=== PATIENT | female | born 1965 | race Two or more races ===

== ENCOUNTER 2022-01-02 12:28 | Outpatient (REF) | payer OTHER, SELFPAY ==
[2022-01-02 13:38] LABS: MANUAL DIFF FLAG NO
[2022-01-02 13:50] LABS: Basophils Percent Auto 0.7 % (0-2); Eosinophils Absolute Auto 0.2 X10*3/uL (0.0-0.4); Eosinophils Percent Auto 3.9 % (0-4); Hematocrit 42.1 % (37.0-47.0); Hemoglobin 13.3 g/dl (12.0-16.0); Imm Gran Abs Auto 0.01 X10*3/uL (0.00-0.03); Imm Gran Pct Auto 0.2 % (0.0-0.4); Lymphocytes Absolute Auto 1.7 X10*3/uL (1.2-4.9); Lymphocytes Percent Auto 29.6 % (20-40); Mean Corpuscular HGB Conc 31.6 g/dl (31.0-35.0); Mean Corpuscular Hemoglobin 26.7 pg (27.0-33.0); Mean Corpuscular Volume 84.4 fL (80.0-98.0); Mean Platelet Volume 10.7 fL (9.4-12.3); Monocytes Absolute Auto 0.4 X10*3/uL (0.1-1.2); Monocytes Percent Auto 7.6 % (2-11); Neutrophils Absolute Auto 3.3 x10*3/uL (2.0-8.3); Platelet Count 253 X10*3/uL (160-400); Red Blood Count 4.99 X10*6/uL (4.20-5.50); White Blood Count 5.7 X10*3/uL (4.8-10.8)
[2022-01-02 13:59] LABS: C Reactive Protein 0.36 mg/dL (< or = 0.50); Estimated Glomerular Filt Rate > 60
[2022-01-02 14:16] LABS: Creatinine Urine 76.12 mg/dL; Total Protein Urine Random < 7 mg/dL (<12)
[2022-01-02 14:57] LABS: Erythrocyte Sedimentation Rate 7 MM/HR (0-20)
[2022-01-03 13:51] LABS: Complement C3 87 mg/dL (83-193)
== END 2022-01-02 12:29 | disposition home or self-care (01) ==
LOC: HO.10HDL 12:28
PROVIDERS: Visit Provider Internal Medicine Rheumatology
DX: M79.7 Fibromyalgia (principal); M17.0 Bilateral primary osteoarthritis of knee; M32.9 Systemic lupus erythematosus, unspecified; Z79.899 Other long term (current) drug therapy
CPT/HCPCS: 36415; 82565; 84156; 85025; 85652; 86140; 86160; 99212

== ENCOUNTER → 2022-06-12 09:36 | Outpatient (BNVA) | payer OTHER, SELFPAY | PROVIDERS: PCP Internal Medicine; Visit Provider Internal Medicine Rheumatology | DX: M17.0 Bilateral primary osteoarthritis of knee (principal); M79.7 Fibromyalgia; M32.9 Systemic lupus erythematosus, unspecified; Z79.899 Other long term (current) drug therapy | CPT/HCPCS: 99212 ==

== ENCOUNTER 2023-01-31 07:56 | Outpatient (AMB) | payer OTHER, SELFPAY ==
[2023-01-31 08:02] VITALS: BP 120/70; PULSE 64; TEMP 36.3; O2SAT 99; BMI 30.2
--- NOTE | 2023-01-31 08:02 | A.OFFVIS_ITS ---
Intake Vital Signs 01/31/23 08:02 Height 5 ft 5 in Weight 181 lb 8 oz BMI 30.2 BMI Reason not done Patient refused/unable BP 120/70 Blood Pressure Location Rt brachial Position Sitting Pulse 64 Pulse Source Pulse Oximeter Temp 97.4 F Temp Source Skin Pulse Oximetry (%) 99 Oxygen Delivery Method Room Air Intake Visit Reasons: f/u ? sjogren's Intake Note: Patient here to follow up on Sjogren's. c/o pain on fingertips, fay hand pain and cramping, problems from the waist down (left hip tear) Scheduled for left breat biopsy today. Abnormal mammogram done at [place]. [place] Required: No Accompanied by: Self / Same As Patient Allergies codeine Allergy (Unknown, Verified 01/31/23 08:02) Unknown hydroxyzine [From Vistaril] Allergy (Unknown, Verified 01/31/23 08:02) Unknown piperacillin [From Zosyn] Allergy (Unknown, Verified 01/31/23 08:02) Unknown pregabalin [From Lyrica] Allergy (Unknown, Verified 01/31/23 08:02) Unknown shellfish derived Allergy (Unknown, Verified 01/31/23 08:02) UNKNOWN tazobactam [From Zosyn] Allergy (Unknown, Verified 01/31/23 08:02) Unknown lisinopril Adverse Reaction (Intermediate, Verified 01/31/23 08:02) Cough BEES Allergy (Unknown, Uncoded 01/31/23 08:02) Unknown BETADYNE Allergy (Unknown, Uncoded 01/31/23 08:02) UNKNOWN GADAVIST Allergy (Unknown, Uncoded 01/31/23 08:02) Unknown HYDROXYZINE Allergy (Unknown, Uncoded 01/31/23 08:02) UNKNOWN iv CONTRAST Allergy (Unknown, Uncoded 01/31/23 08:02) Unknown Medication List - Last Reconciled 01/31/23 by Felice Yu MD acetaminophen ER (Tylenol 8 Hour) 650 mg PO Q12H PRN albuterol sulfate 90 mcg/actuation 2 puffs inhalation Q6H PRN aspirin (Adult Low Dose Aspirin) 81 mg PO DAILY atorvastatin 20 mg PO DAILY bepotastine besilate 1.5% 1 drp ophthalmic (eye) BID calcium carbonate-vitamin D3 500 mg-10 mcg (400 unit) 1 tab PO BID diclofenac sodium 3% 1 appl topical BID epinephrine 0.3 mg IM Q4H PRN fexofenadine (Allergy Relief (fexofenadine)) 0 mg PO fluticasone propionate 50 mcg/actuation 2 sprays intranasal DAILY gabapentin 100 mg PO BEDTIME hydrochlorothiazide 12.5 mg PO DAILY ibuprofen 800 mg PO Q8H PRN levetiracetam (Keppra) 1,500 mg PO BID levothyroxine 50 mcg PO DAILY lisinopril 10 mg PO DAILY loratadine 10 mg PO DAILY meloxicam 15 mg PO DAILY PRN nitroglycerin (Nitrostat) 0.4 mg sublingual Q5M PRN ondansetron HCl 4 mg PO Q8H PRN oxcarbazepine (Trileptal) 300 mg PO DAILY pantoprazole 40 mg PO BID polyethylene glycol 3350 17 grams PO DAILY sertraline 50 mg PO DAILY HPI HPI Comments History of Present Illness Details The patient returns today for evaluation of her history of SLE. In recent years there has been no inflammatory activity and we tapered her off the hydroxychloroquine. She has a breast biopsy planned for later today. This was to workup by a mammographically detected lesion. She has had previous breast biopsies in the past that were negative. From a musculoskeletal point of view she gets back pain, left hip pain, and right knee pains. She has seen Orthopedics about the hip and apparently MRI has shown a tear . I presume this is a labral tear. There is some mild degenerative changes seen on regular x- rays. She did receive what sounds like was an intra-articular corticosteroid injection that was helpful earlier this year. She has had injections with Gel products into the right knee that were helpful. Workup of her back pain did reveal degenerative disease but most of her leg pain is thought to emanate at this point from the degenerative process in the left hip. She does take meloxicam on a regular basis. They did prescribe some ibuprofen if needed for the breast biopsy but I told her I would not take both ibuprofen and the meloxicam on the same day. [facility] Surgical History H/O shoulder surgery Hx of right knee surgery Hx of tubal ligation S/P cardiac cath Family History Mother Hypertension Heart disease Dementia High cholesterol Father Hypertension High cholesterol Social History Household Members: Spouse Housing: House Are you a primary cardiac care unit nurse to a significant other at home: No Do you presently have visiting nurse or other home services: No 75 years or older and lives alone: No Alcohol intake: never Patient Tobacco Use Status: Never used Tobacco e-Cigarette/Vaping Use: Never Used service: No Current occupational status: disabled Review of Systems Const Details: Negative for appetite change, weight change, fever, chills, malaise and fatigue Eyes Details: Itchy eyes at times thought to be due to allergies. Headaches have not been that much of a problem recently. Negative for vision change, dry eyes, and dizziness ENT Details: Negative for hearing change, tinnitus, oral ulcer, nose bleeds and oral dryness. Card Details: Negative chest pain, edema and syncope Resp Details: Negative for SOB, cough and wheezing GI Details: Negative indigestion/heartburn, nausea, abdominal pain, bowel changes, diarrhea, constipation and bloody stool. Details: Negative for dysuria, hematuria, nocturia, decreased force/flow and genital discharge Skin/Breast Details: Negative for itching, rash, hives, Raynaud's symptoms, sun sensitivity, and skin cancer Neuro Details: She thinks she might have had 1 recent seizure. She remains on seizure medications. Negative for palsy, stroke, changes in speech, tingling and weakness Psych Details: Anxious about upcoming breast biopsy. Otherwise sertraline helps with depression and anxiety for her. Endo Details: Negative for polyuria and polydypsia Dario/Lymph Details: Negative for excessive bruising or bleeding. Physical Exam Vital Signs: Last Vital Signs Temp 97.4 F 01/31/23 08:02 Pulse 64 01/31/23 08:02 BP 120/70 01/31/23 08:02 Pulse Ox 99 01/31/23 08:02 Oxygen Delivery Method Room Air 01/31/23 08:02 BMI result Body Mass Index 30.2 APPEARANCE: Patient in no acute distress EYES no redness, pupils equal and reactive to light, eyelids normal.? No TMJ tenderness. EARS:? External ear normal, canal clear and tympanic membrane normal. NOSE/SINUS:? Airflow through both nares, no nasal discharge, no bleeding THROAT:? Oral mucosa moist, no ulcerations NECK:? No thyromegaly or masses, no adenopathy, trachea midline.? There is no t enderness in the parotids.? No neck masses. HEART:? Regulrar rhythm, S1-S2 heard, no murmurs, rubs or gallops. LUNG:? Clear to percussion and auscultation ABD:? Normal bowel sounds, no organomegaly, masses or tenderness. EXTREMITIES:? No edema, no calf tenderness, normal peripheral pulses. NEURO:? Oriented and alert x3.? No focal weakness.? Reflexes symmetric.? Gait normal. SKIN:? No inflammatory or neoplastic lesions.? Normal color and turgor JOINT EXAM: Cervical Spine:.? Full range of motion without pain; no tenderness. Thoracic Spine:.? No scoliosis.? No tenderness on palpation. Lumbar Spine:.? Alignment normal.? Some lumbar pain with extremes of motion.? No tenderness. Chest Wall:.? No tenderness, swelling, increased warmth or erythema. Hands:.? Normal pain-free range of motion. The joints have no tenderness, swelling, increased warmth or erythema. Able to make a full fist and has a good director network development strength. Wrists:.? Normal pain-free range of motion with mild dorsal tenderness.? No swelling, increased warmth or erythema. Elbows:. Normal pain-free range of motion without tenderness, swelling, increased warmth or erythema. Shoulders: mild discomfort with extremes of motion with some minimal anterior tenderness.? No abductor weakness or adenopathy. Hips:.? Left: There is mild the groin pain with attempts at abduction or external rotation. There is some slight groin pain with more than 5 degrees of internal rotation. Similarly there is pain with flexion at 90 degrees. Right: Slight lumbar pain with extremes of normal range of motion.. Hip bursa:? Slight left trochanteric tenderness. Knees:.??Right:? Slight medial pain and mild patellofemoral crepitus with range of motion.? No appreciable effusion.? There is some mild medial tenderness without redness or warmth.? Left:? Slight discomfort with extremes of flexion extension.? Slight medial tenderness without redness or effusion.? Mild patellofemoral crepitus.? Ankles:.? Normal pain-free range of motion without tenderness, swelling, increased warmth or erythema. Feet:.? Normal pain-free range of motion without tenderness, swelling, increased warmth or erythema. Tender points:? Mild tenderness to digital palpation at the occiput, trapezius, second rib, lateral epicondyle, knees, greater trochanter and gluteal area bilaterally. ? Assessment & Plan Assessment & Plan (1) SLE (systemic lupus erythematosus related syndrome): Comment: [facility]) Prior history of pos RACHEL, arthralgias, rash, seizures On hydroxychloroquine initially 2009 last eye exam 03/15, 11/14,09/2021, 05/2022 No lupus activity in 2022 Code(s): M32.9 - Systemic lupus erythematosus, unspecified (2) Osteoarthritis of knees, bilateral: Comment: meniscal surgery, gel injections on right Code(s): M17.0 - Bilateral primary osteoarthritis of knee (3) Fibromyalgia: Code(s): M79.7 - Fibromyalgia (4) Osteoarthritis of left hip: Code(s): M16.12 - Unilateral primary osteoarthritis, left hip (5) Osteoarthritis of lumbar spine: Code(s): M47.816 - Spondylosis without myelopathy or radiculopathy, lumbar region Plan Once again I do not see signs of an active picture of lupus. She is off the hydroxychloroquine now. She does have pains in the left hip, lower back, and right knee. These all seem to be related to degenerative processes. Right now it seems the left hip is most problematic in terms of walkking. She did get some benefit with an injection earlier this year so may have another injection but I would admittedly think she says she may eventually need a hip replacement. She is still doing physical therapy directed exercises for the lumbar OA. There are still many tender points consistent with some underlying fibromyalgia. We will check for some markers of inflammation and lupus activity. Follow-up in 6 months is recommended. Orders: Orders Basic Metabolic Panel Today M32.9 - Systemic lupus erythematosus, unspecified C Reactive Protein Today M32.9 - Systemic lupus erythematosus, unspecified Protein Creatinine Ratio, Ur Today M32.9 - Systemic lupus erythematosus, unspecified Complete Blood Count Auto Diff Today M32.9 - Systemic lupus erythematosus, unspecified Erythrocyte Sedimentation Rate Today M32.9 - Systemic lupus erythematosus, unspecified Complement C3 Today M32.9 - Systemic lupus erythematosus, unspecified Complement C4 Today M32.9 - Systemic lupus erythematosus, unspecified Anti DNA DS Antibody Today M32.9 - Systemic lupus erythematosus, unspecified Coding Level of Care Code Est Pt Level 4 (03527) Diagnoses SLE (systemic lupus erythematosus related syndrome) M32.9 Osteoarthritis of knees, bilateral M17.0 Fibromyalgia M79.7 Osteoarthritis of left hip M16.12 Osteoarthritis of lumbar spine M47.816
== END 2023-01-31 08:49 | disposition home or self-care (01) ==
PROVIDERS: PCP Internal Medicine; Visit Provider Internal Medicine Rheumatology
DX: M32.9 Systemic lupus erythematosus, unspecified (principal); M17.0 Bilateral primary osteoarthritis of knee; M79.7 Fibromyalgia; M16.12 Unilateral primary osteoarthritis, left hip; M47.816 Spondylosis without myelopathy or radiculopathy, lumbar region
CPT/HCPCS: 99214

== ENCOUNTER → 2023-01-31 07:56 | Outpatient (BNVA) | payer OTHER, SELFPAY | PROVIDERS: PCP Internal Medicine; Visit Provider Internal Medicine Rheumatology | DX: M32.9 Systemic lupus erythematosus, unspecified (principal); M17.0 Bilateral primary osteoarthritis of knee; M79.7 Fibromyalgia; M16.12 Unilateral primary osteoarthritis, left hip; M47.816 Spondylosis without myelopathy or radiculopathy, lumbar region | CPT/HCPCS: 99212 ==

== ENCOUNTER 2023-01-31 08:50 | Outpatient (REF) | payer OTHER, SELFPAY ==
[2023-01-31 10:11] LABS: MANUAL DIFF FLAG NO
[2023-01-31 10:16] LABS: Basophils Percent Auto 0.5 % (0-2); Eosinophils Absolute Auto 0.2 X10*3/uL (0.0-0.4); Eosinophils Percent Auto 3.3 % (0-4); Hematocrit 41.8 % (37.0-47.0); Hemoglobin 13.3 g/dl (12.0-16.0); Imm Gran Abs Auto 0.01 X10*3/uL (0.00-0.03); Imm Gran Pct Auto 0.2 % (0.0-0.4); Lymphocytes Absolute Auto 1.9 X10*3/uL (1.2-4.9); Lymphocytes Percent Auto 31.8 % (20-40); Mean Corpuscular HGB Conc 31.8 g/dl (31.0-35.0); Mean Corpuscular Hemoglobin 27.3 pg (27.0-33.0); Mean Corpuscular Volume 85.8 fL (80.0-98.0); Mean Platelet Volume 10.5 fL (9.4-12.3); Monocytes Absolute Auto 0.4 X10*3/uL (0.1-1.2); Monocytes Percent Auto 6.3 % (2-11); Neutrophils Absolute Auto 3.5 x10*3/uL (2.0-8.3); Neutrophils Percent Auto 57.9 % (45-73); Platelet Count 232 X10*3/uL (160-400); Red Blood Count 4.87 X10*6/uL (4.20-5.50); Red Cell Distribution Width 13.6 % (11.0-16.0)
[2023-01-31 10:39] LABS: Anion Gap 13 (12-20); Blood Urea Nitrogen 13 mg/dL (9-16); C Reactive Protein 0.32 mg/dL (< or = 0.50); Calcium 9.9 mg/dL (8.4-10.2); Carbon Dioxide 28 mmol/L (22-29); Chloride 105 mmol/L (96-108); Estimated Glomerular Filt Rate > 60; Glucose Random 89 mg/dL (60-115); Potassium 4.3 mmol/L (3.3-5.1); Sodium 142 mmol/L (135-145)
[2023-01-31 10:52] LABS: Erythrocyte Sedimentation Rate 7 MM/HR (0-20)
[2023-01-31 11:13] LABS: Creatinine Urine 65.85 mg/dL; Total Protein Urine Random < 7 mg/dL (<12)
[2023-02-02 17:58] LABS: Complement C3 147 mg/dL (83-193)
[2023-02-02 18:08] LABS: Anti DNA DS Antibody 8 IU/mL
== END 2023-01-31 08:51 | disposition home or self-care (01) ==
LOC: HO.10HDL 08:50
PROVIDERS: Visit Provider Internal Medicine Rheumatology
DX: M32.9 Systemic lupus erythematosus, unspecified (principal)
CPT/HCPCS: 36415; 80048; 82570; 84156; 85025; 85652; 86140; 86160; 86225

== ENCOUNTER 2023-07-30 09:44 | Outpatient (AMB) | payer OTHER, SELFPAY ==
--- NOTE | 2023-07-30 10:14 | A.OFFVIS_ITS ---
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 Yu, presents today for follow up. Reports trigger finger on left thumb, does not wish to have cortisone injection. Also reports more fatigue. Patient states she is due for DEXA. Final Assembly Worker Required: No Accompanied by: Self / Same As Patient Allergies codeine Allergy (Unknown, Verified 07/30/23 10:20) Unknown hydroxyzine [From Vistaril] Allergy (Unknown, Verified 07/30/23 10:20) Unknown piperacillin [From Zosyn] Allergy (Unknown, Verified 07/30/23 10:20) Unknown pregabalin [From Lyrica] Allergy (Unknown, Verified 07/30/23 10:20) Unknown shellfish derived Allergy (Unknown, Verified 07/30/23 10:20) UNKNOWN tazobactam [From Zosyn] Allergy (Unknown, Verified 07/30/23 10:20) Unknown lisinopril Adverse Reaction (Intermediate, Verified 07/30/23 10:20) Cough BEES Allergy (Unknown, Uncoded 07/30/23 10:20) Unknown BETADYNE Allergy (Unknown, Uncoded 07/30/23 10:20) UNKNOWN GADAVIST Allergy (Unknown, Uncoded 07/30/23 10:20) Unknown HYDROXYZINE Allergy (Unknown, Uncoded 07/30/23 10:20) UNKNOWN iv CONTRAST Allergy (Unknown, Uncoded 07/30/23 10:20) Unknown cortisone Adverse Reaction (Severe, Uncoded 07/30/23 10:23) hair loss HPI HPI Comments History of Present Illness Details Mrs. Mcdermott 58-year-old female returns today for evaluation of her history of SLE. She continues without inflammatory activity. She remains off hydroxychloroquine since 2020 due to vision concerns. From a musculoskeletal point of view she gets back pain, left hip pain, and right knee pains. She recently had plasma injections to her right knee and is planning to have the left hip done. Nine 05/16/2023 she was treated for dysphagia. She continues with dry eyes and uses eyedrops 3 times per day. She describes excessive fatigue. Historically she has had CVAs/TIA 1996, 1998 and 2012 and so she is currently on aspirin. She has had seizures since 2014 and her neurologist thinks it is related to her lupus - she is currently on Keppra. No spinal tap has been done as she defers doing a spinal tap - she says she was almost paralyzed from spinal injections for . Patient is being treated for overactive bladder on Myrbetriq and if it has not effective they will try Botox. Client Strategist: Mass cell raudel, going to [facility] November 19 for consult. l - increased sensitivity to smells, worsened allergies, ENT - Vertigo therapy starting on 08/02. EYEs: Continue the drug Holiday from HCQ per MD. Prior visit 01/31/2023 Dr. Yu: The patient returns today for evaluation of her history of SLE. In recent years there has been no inflammatory activity and we tapered her off the hydroxychloroquine. She has a breast biopsy planned for later today. This was to workup by a mammographically detected lesion. She has had previous breast biopsies in the past that were negative. From a musculoskeletal point of view she gets back pain, left hip pain, and right knee pains. She has seen Orthopedics about the hip and apparently MRI has shown a tear . I presume this is a labral tear. There is some mild degenerative changes seen on regular x- rays. She did receive what sounds like was an intra-articular corticosteroid injection that was helpful earlier this year. She has had injections with Gel products into the right knee that were helpful. Workup of her back pain did reveal degenerative disease but most of her leg pain is thought to emanate at this point from the degenerative process in the left hip. She does take meloxicam on a regular basis. They did prescribe some ibuprofen if needed for the breast biopsy but I told her I would not take both ibuprofen and the meloxicam on the same day. REPLACED BY [facility] Medical History (Updated 08/01/23 @ 18:16 by PEDRO Heck-) Mast cell disorder Age-related osteoporosis without current pathological fracture Surgical History S/P cardiac cath Hx of tubal ligation Hx of right knee surgery H/O shoulder surgery Family History Mother Hypertension Heart disease Dementia High cholesterol Father Hypertension High cholesterol Social History Household Members: Spouse Housing: House Are you a primary resident care associate to a significant other at home: No Do you presently have visiting nurse or other home services: No Alcohol intake: never Patient Tobacco Use Status: Never used Tobacco e-Cigarette/Vaping Use: Never Used service: No Current occupational status: disabled Review of Systems Const All systems reviewed & are unremarkable except as noted in HPI and below Physical Exam APPEARANCE: Patient in no acute distress, nourished, groomed EYES no redness, eyelids normal.? clear sclera, No TMJ tenderness. EARS:? External ear normal NOSE/SINUS:? Airflow through both nares, no nasal discharge, no bleeding THROAT:? Oral mucosa moist, no ulcerations NECK:? No thyromegaly or masses, no adenopathy, trachea midline.? There is no tenderness in the parotids.? No neck masses. HEART:? Regular rhythm, S1-S2 heard, no murmurs, rubs or gallops. LUNG:? Clear to percussion and auscultation ABD:? Normal bowel sounds, no organomegaly, masses or tenderness. EXTREMITIES:? No edema, no calf tenderness, normal peripheral pulses. NEURO:? Oriented and alert x3.? No focal weakness.? Reflexes symmetric.? Walks with a cane per patient for her right knee SKIN:? No inflammatory or neoplastic lesions.? Normal color and turgor JOINT EXAM: Cervical Spine:.? Full range of motion without pain; no tenderness. Thoracic Spine:.? No scoliosis.? No tenderness on palpation. Lumbar Spine:.? Alignment normal.? Some lumbar pain with extremes of motion.? No tenderness. Chest Wall:.? No tenderness, swelling, increased warmth or erythema. Hands:.? Normal pain-free range of motion. The joints have no tenderness, swelling, increased warmth or erythema. Able to make a full fist and has a good medical office supervisor strength. Wrists:.? Normal pain-free range of motion with mild dorsal tenderness.? No swelling, increased warmth or erythema. Elbows:. Normal pain-free range of motion without tenderness, swelling, increased warmth or erythema. Shoulders: mild discomfort with extremes of motion with some minimal anterior tenderness.? No abductor weakness or adenopathy. Hips:.? Left: There is mild the groin pain with attempts at abduction or external rotation. There is some slight groin pain with more than 5 degrees of internal rotation. Similarly there is pain with flexion at 90 degrees. Right: Slight lumbar pain with extremes of normal range of motion.. Hip bursa:? Slight left trochanteric tenderness. Knees:.??Right:? Slight medial pain and mild patellofemoral crepitus with range of motion.? No appreciable effusion.? There is some mild medial tenderness without redness or warmth.? Left:? Slight discomfort with extremes of flexion extension.? Slight medial tenderness without redness or effusion.? Mild patellofemoral crepitus.? Ankles:.? Normal pain-free range of motion without tenderness, swelling, increased warmth or erythema. Feet:.? Normal pain-free range of motion without tenderness, swelling, increased warmth or erythema. Tender points:? Mild tenderness to digital palpation at the occiput, trapezius, second rib, lateral epicondyle, knees, greater trochanter and gluteal area bilaterally. ? Results Reviewed Results Reviewed: [facility] Result Report Patient: Destinee Mcdermott Date of Service: 06/06/22 ? ? Patient Gender: Female Ordering Provider: Nain Snider : 1965 ? ? ? Final RADIOLOGIC EXAM CHEST 2 VIEWS Exam Date: 06/06/2022 2:20 PM Ordering Diagnosis: Subacute cough ? ? CHEST, TWO VIEWS ? HISTORY: Subacute cough . ? TECHNIQUE: Frontal and lateral views of the chest. ? PRIOR: Chest x-ray 03/10/2022. ? FINDINGS: ? The lungs are clear. ? No pleural effusion is seen. No pneumothorax is seen. ? The cardiac diameter is within normal limits. ? No acute or aggressive appearing bony abnormalities are seen. There are postoperative changes of the right shoulder. There is mild curvature and degenerative change of the spine. ? IMPRESSION IMPRESSION: No acute pulmonary pathology. ? Reading Radiologist: Electronically signed by: Priscilla Reyna MD [facility] Imaging Result Report Patient: Destinee Mcdermott Date of Service: 03/27/22 ? ? Patient Gender: Female Ordering Provider: Mavis Lima : 1965 ? ? ? Final MRI OF LUMBAR SPINE NO CONTRAST Exam Date: 03/27/2022 1:09 PM Ordering Diagnosis: Lumbar radiculopathyParesthesia of right foot ? MRI OF LUMBAR SPINE NO CONTRAST ? MR OF THE LUMBAR SPINE WITHOUT CONTRAST ? HISTORY: Lumbar radiculopathy. Paresthesias of right foot. ? Technique: MR of the lumber spine was performed without contrast utilizing the standard departmental protocol. ? COMPARISON: MRI lumbar spine 11/27/2019. ? FINDINGS: Conus medullaris terminates at the [lower L2] level, and demonstrates normal signal. There is no abnormal thickening or clumping of the cauda equina nerve roots. There is normal alignment of the lumbar spine. Vertebral body heights are normal. Marrow signal is normal. ? At T12-L1, no significant disc herniation, central spinal canal stenosis or neuroforaminal narrowing. ? At L1-L2, no significant disc herniation, central spinal canal stenosis or neuroforaminal narrowing. ? At L2-L3, there is disc bulging and facet hypertrophy. ? At L3-L4, there is slight decreased disc height and mild facet hypertrophy. No significant disc herniation, central spinal canal stenosis or neuroforaminal narrowing. ? At L4-L5, describes that there is mild disc bulging, moderate facet hypertrophy, mild ligament is bulging, and mild bilateral neural foraminal narrowing. ? At L5-S1, there is minor retrolisthesis of L5 relative to S1. There is mild disc bulging and moderate facet hypertrophy. No central spinal canal stenosis. ? IMPRESSION IMPRESSION: Multilevel bony and discogenic degenerative changes as described. No significant change from the previous study. ? Reading Radiologist: Laboratory Tests 01/31/23 08:55 WBC 6.0 RBC 4.87 Hgb 13.3 Hct 41.8 MCV 85.8 ESR 7 Creatinine 0.85 Estimated GFR > 60 Calcium 9.9 C-Reactive Protein 0.32 U Random Total Protein < 7 Urine Creatinine 65.85 Protein/Creatinin Ratio TNP Double Strand DNA Ab 8 H Complement C3 147 Complement C4 47 Assessment & Plan Assessment & Plan (1) SLE (systemic lupus erythematosus related syndrome): Comment: [facility] Prior history of pos RACHEL, arthralgias, rash, seizures On hydroxychloroquine initially 2009 last eye exam 03/15, 11/14,09/2021, 05/2022 No lupus activity in 2022 Code(s): M32.9 - Systemic lupus erythematosus, unspecified (2) Osteoarthritis of knees, bilateral: Comment: meniscal surgery, gel injections on right Code(s): M17.0 - Bilateral primary osteoarthritis of knee Qualifiers: Osteoarthritis type: primary Qualified Code(s): M17.0 - Bilateral primary osteoarthritis of knee (3) Osteoarthritis of left hip: Code(s): M16.12 - Unilateral primary osteoarthritis, left hip Qualifiers: Osteoarthritis type: primary Qualified Code(s): M16.12 - Unilateral primary osteoarthritis, left hip (4) Osteoarthritis of lumbar spine: Comment: 04/2022 EMG at [facility]: Bilateral mild lumbar radiculopathy and moderate left peroneal neuropathy Code(s): M47.816 - Spondylosis without myelopathy or radiculopathy, lumbar region Qualifiers: Spinal osteoarthritis complication: with radiculopathy Qualified Code(s): M47.26 - Other spondylosis with radiculopathy, lumbar region (5) survey crew chief use of drug: Code(s): Z79.899 - Other shelter (current) drug therapy (6) Age-related osteoporosis without current pathological fracture: Code(s): M81.0 - Age-related osteoporosis without current pathological fracture (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 She will continue off hydroxychloroquine per eye MD as she is developing some other optical concerns. We will check for some markers of inflammation and lupus activity. Given that she has a history of TIAs, 3 episodes, and is currently on aspirin, I will order the lupus anticoagulant panel to see if she is predisposed to autoimmune co agulopathy. 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 This would certainly support the ophthalmology concerns due to alterations in her vision (blurry, increase light sensitive, floaters) which is now thought not to be related to HCQ. However, her Neurologic presentation (headaches, strokes and seizures) clinically favors lupus cerebritis. #OA multiple sites: She has had multiple corticosteroid and gel injections in the past. So patient wants to continue to pursue her plasma treatments for her hips and knees. The left hip is most problematic in terms of walking. Per fermin ent she is still doing physical therapy directed exercises for the lumbar OA. There are still many tender points consistent with some underlying fibromyalgia. #Osteoporosis: Per patient she has not been evaluated for osteoporosis so I will order a bone density scan. Per patient she continues to the see the mobile health vehicle operator for Mass Cell disorder. Follow-up in 6 months is recommended. I spent 45 minutes reviewing history, evaluating patient, and documenting Orders: Orders XR DEXA axial skeleton 07/30/23 M81.0 - Age-related osteoporosis without current pathological fracture Complement C3 07/30/23 M32.9 - Systemic lupus erythematosus, unspecified, Z79.899 - Other vallez filter operator (current) drug therapy Anti DNA DS Antibody 07/30/23 M32.9 - Systemic lupus erythematosus, unspecified, Z79.899 - Other shelter (current) drug therapy Anti Extractable Nuclear Ag 07/30/23 M32.9 - Systemic lupus erythematosus, unspecified, Z79.899 - Other shelter (current) drug therapy RACHEL Reflex Titer and Pattern 07/30/23 M32.9 - Systemic lupus erythematosus, unspecified, Z79.899 - Other shelter (current) drug therapy C Reactive Protein 07/30/23 M32.9 - Systemic lupus erythematosus, unspecified, Z79.899 - Other vallez filter operator (current) drug therapy Lupus Anticoagulant Panel 07/30/23 M32.9 - Systemic lupus erythematosus, unspecified, Z79.899 - Other vallez filter operator (current) drug therapy UA w Microscopic 07/30/23 M32.9 - Systemic lupus erythematosus, unspecified, Z79.899 - Other shelter (current) drug therapy ANCA Vasculitides 07/30/23 M32.9 - Systemic lupus erythematosus, unspecified, Z79.899 - Other vallez filter operator (current) drug therapy Complement C4 07/30/23 M32.9 - Systemic lupus erythematosus, unspecified, Z79.899 - Other vallez filter operator (current) drug therapy Erythrocyte Sedimentation Rate 07/30/23 M32.9 - Systemic lupus erythematosus, unspecified, Z79.899 - Other shelter (current) drug therapy Sjogren's Antibodies 07/30/23 M32.9 - Systemic lupus erythematosus, unspecified, Z79.899 - Other vallez filter operator (current) drug therapy Protein Creatinine Ratio, Ur 07/30/23 M32.9 - Systemic lupus erythematosus, unspecified, Z79.899 - Other shelter (current) drug therapy Coding Level of Care Code Est Pt Level 4 (27187) Diagnoses SLE (systemic lupus erythematosus related syndrome) M32.9 Primary osteoarthritis of both knees M17.0 Osteoarthritis type: primary Primary osteoarthritis of left hip M16.12 Osteoarthritis type: primary Osteoarthritis of spine with radiculopathy, lumbar region M47.26 Spinal osteoarthritis complication: with radiculopathy survey crew chief use of drug Z79.899 Age-related osteoporosis without current pathological fracture M81.0 Mast cell disorder D47.09
== END 2023-07-30 10:49 | disposition home or self-care (01) ==
PROVIDERS: PCP Internal Medicine; Visit Provider Nurse Practitioner Family
DX: M32.9 Systemic lupus erythematosus, unspecified (principal); M17.0 Bilateral primary osteoarthritis of knee; M16.12 Unilateral primary osteoarthritis, left hip; M47.26 Other spondylosis with radiculopathy, lumbar region; Z79.899 Other long term (current) drug therapy; M81.0 Age-related osteoporosis without current pathological fracture; D47.09 Other mast cell neoplasms of uncertain behavior
CPT/HCPCS: 99214

== ENCOUNTER → 2023-07-30 09:44 | Outpatient (BNVA) | payer OTHER, SELFPAY | PROVIDERS: PCP Internal Medicine; Visit Provider Nurse Practitioner Family | DX: M32.9 Systemic lupus erythematosus, unspecified (principal); M17.0 Bilateral primary osteoarthritis of knee; M16.12 Unilateral primary osteoarthritis, left hip; M47.26 Other spondylosis with radiculopathy, lumbar region; M81.0 Age-related osteoporosis without current pathological fracture; D47.09 Other mast cell neoplasms of uncertain behavior; Z79.899 Other long term (current) drug therapy | CPT/HCPCS: 99212 ==

== ENCOUNTER 2023-07-30 11:07 | Outpatient (REF) | payer OTHER, SELFPAY ==
[2023-07-30 12:03] LABS: Appearance Urine Clear; Color Urine Yellow; Glucose Urine UA Negative (Negative); Leukocyte Esterase Urine Negative (Negative); Nitrite Urine Negative (Negative); PH 5.5 (5.0-9.0); Urine Blood Negative (Negative); Urine Ketones Negative (Negative); Urine Protein Negative (Neg-Trace)
[2023-07-30 12:07] LABS: Bacteria Urine None Seen (None Seen); Hyaline Casts Urine 0-2 /LPF (0-2); RBC Urine 0-2 /HPF (0-2); Squamous Epithelial Cell Urine 0-2 /HPF (0-2); WBC Urine 0-5 /HPF (0-5)
[2023-07-30 12:55] LABS: C Reactive Protein 0.34 mg/dL (< or = 0.50)
[2023-07-30 13:03] LABS: Erythrocyte Sedimentation Rate 6 MM/HR (0-20)
[2023-07-30 13:05] LABS: Creatinine Urine 38.53 mg/dL; Total Protein Urine Random < 7 mg/dL (<12)
[2023-07-31 19:23] LABS: Anti DNA DS Antibody 8 IU/mL; Antibody to SS-A Antigen <1.0 NEG AI (<1.0 NEG); Antibody to SS-B Antigen <1.0 NEG AI (<1.0 NEG); Myeloperoxidase Antibody <1.0 AI; Proteinase 3 PR3 Antibodies <1.0 AI; SM/Ribonucleoprotein Ab <1.0 NEG AI (<1.0 NEG); Smith Protein <1.0 NEG AI (<1.0 NEG)
[2023-07-31 23:09] LABS: Complement C3 132 mg/dL (83-193)
[2023-08-03 07:39] LABS: PTT (LAC) Screen 30 sec (<=40)
[2023-08-03 14:58] LABS: Anti Nuclear Antibody Screen POSITIVE (NEGATIVE)
== END 2023-07-30 11:08 | disposition home or self-care (01) ==
LOC: HO.LAB 11:07
PROVIDERS: Visit Provider Nurse Practitioner Family
DX: M32.9 Systemic lupus erythematosus, unspecified (principal); Z79.899 Other long term (current) drug therapy
CPT/HCPCS: 36415; 81001; 82570; 84156; 85597; 85598; 85613; 85652; 85730; 86021; 86038; 86039; 86140; 86160; 86225; 86235

== ENCOUNTER 2023-08-16 08:14 | Outpatient (REF) | payer OTHER, SELFPAY ==
--- NOTE | ~2023-08-16 | MM_ITS ---
EXAMINATION: BONE DENSITOMETRY CLINICAL INDICATION: Age-related osteoporosis without current pathological fracture. COMPARISON: This is the patient's baseline examination. TECHNIQUE: Using a WelVU DXA System (software version: 13.1) manufactured by [employer], dual-energy x-ray absorptiometry was performed of the lumbar spine and left hip. The images are of good technical quality. Summary results are attached. FINDINGS: LEFT FEMUR, NECK: BMD 1.133 g/cm2, Z-score 1.3, T-score 0.7, normal. LEFT FEMUR, TOTAL: BMD 1.360 g/cm2, Z-score 3.0, T-score 2.8, normal. AP SPINE L1-L4: BMD 1.400 g/cm2, Z-score 2.1, T-score 1.8, normal. IDENTIFIED RISK FACTORS: Rheumatoid arthritis, secondary osteoporosis (anorexia or bulimia), anticonvulsants, glucocorticoids, menopause. HISTORY OF FRACTURE: None listed. MEDICATIONS: None listed. MM/XR DEXA axial skeleton IMPRESSION: 1. DIAGNOSIS: Normal bone density based on the lowest T-score value of 0.7 in the femoral neck applying World Health Organization criteria. 2. 10-YEAR FRACTURE RISK PREDICTION, FRAX: According to the guidelines, FRAX calculation should only be performed on patients in the osteopenia bone density category. Therefore, FRAX was not performed on this patient. 3. Treatment Recommendations: NOF guidelines recommend consideration for treatment in postmenopausal women and men age 50 and older presenting with the following: -A hip or vertebral (clinical or morphometric) fracture. -T-score less than or equal to -2.5 at the femoral neck or spine after appropriate evaluation to exclude secondary causes. -Low bone mass at the hip or spine and a 10-year fracture probability by FRAX of greater than or equal to 3% for hip fracture or greater than or equal to 20% for major osteoporotic fracture based on the [place] adapted WHO algorithm. 4. Other Recommendations: All treatment decisions require clinical judgment and consideration of individual patient factors, including patient preferences, comorbidities, previous drug use, risk factors not captured in the FRAX model (e.g. frailty, falls, vitamin D deficiency, increased bone turnover, interval significant decline in bone density) and possible under or overestimation of fracture risk by FRAX. FUTURE SCAN RECOMMENDATION: People with diagnosed cases of osteoporosis or at high risk for fracture should have regular bone mineral density tests. For patients eligible for Medicare, routine testing is allowed once every 2 years. The testing frequency can be increased to one year for patients who have rapidly progressing disease, those who are receiving or discontinuing medical therapy to restore bone mass, or have additional risk factors.
== END 2023-08-16 08:15 | disposition home or self-care (01) ==
LOC: HO.MAMMO 08:14
PROVIDERS: PCP Internal Medicine; Visit Provider Nurse Practitioner Family
DX: Z13.820 Encounter for screening for osteoporosis (principal); M81.0 Age-related osteoporosis without current pathological fracture; Z78.0 Asymptomatic menopausal state
CPT/HCPCS: 77080

== ENCOUNTER 2024-01-18 08:07 | Outpatient (AMB) | payer OTHER, SELFPAY ==
--- NOTE | 2024-01-18 08:22 | A.OFFVIS_ITS ---
Vital Signs 01/18/24 08:23 Height 5 ft 5 in Weight 187 lb BMI 31.1 BP 144/98 H Blood Pressure Location Rt brachial Position Sitting Pulse 74 Pulse Source Pulse Oximeter Pulse Oximetry (%) 98 Oxygen Delivery Method Room Air Intake Visit Reasons: E-FUDGE [employer]AND[employer]: Vertigo-LVM Intake Note: Patient presents for vertigo. patient of Dr. Talbert was seen for seizures. Allergies codeine Allergy (Unknown, Verified 01/18/24 08:27) Unknown hydroxyzine [From Vistaril] Allergy (Unknown, Verified 01/18/24 08:27) Unknown piperacillin [From Zosyn] Allergy (Unknown, Verified 01/18/24 08:27) Unknown pregabalin [From Lyrica] Allergy (Unknown, Verified 01/18/24 08:27) Unknown shellfish derived Allergy (Unknown, Verified 01/18/24 08:27) UNKNOWN tazobactam [From Zosyn] Allergy (Unknown, Verified 01/18/24 08:27) Unknown lisinopril Adverse Reaction (Intermediate, Verified 01/18/24 08:27) Cough BEES Allergy (Unknown, Uncoded 01/18/24 08:27) Unknown BETADYNE Allergy (Unknown, Uncoded 01/18/24 08:27) UNKNOWN GADAVIST Allergy (Unknown, Uncoded 01/18/24 08:27) Unknown HYDROXYZINE Allergy (Unknown, Uncoded 01/18/24 08:27) UNKNOWN iv CONTRAST Allergy (Unknown, Uncoded 01/18/24 08:27) Unknown cortisone Adverse Reaction (Severe, Uncoded 01/18/24 08:27) hair loss Medication List - Last Reconciled 01/18/24 by PEDRO Wen acetaminophen ER (Tylenol 8 Hour) 650 mg PO Q12H PRN albuterol sulfate 90 mcg/actuation 2 puffs inhalation Q6H PRN aspirin (Adult Low Dose Aspirin) 81 mg PO DAILY atorvastatin 20 mg PO DAILY bepotastine besilate 1.5% 1 drp ophthalmic (eye) BID calcium carbonate-vitamin D3 500 mg-10 mcg (400 unit) 1 tab PO BID diclofenac sodium 3% 1 appl topical BID epinephrine 0.3 mg IM Q4H PRN fexofenadine (Allergy Relief (fexofenadine)) 0 mg PO fluticasone propionate 50 mcg/actuation 2 sprays intranasal DAILY gabapentin 100 mg PO BEDTIME hydrochlorothiazide 12.5 mg PO DAILY ibuprofen 800 mg PO Q8H PRN levetiracetam (Keppra) 1,500 mg PO BID levothyroxine 50 mcg PO DAILY lisinopril 10 mg PO DAILY loratadine 10 mg PO DAILY nitroglycerin (Nitrostat) 0.4 mg sublingual Q5M PRN ondansetron HCl 4 mg PO Q8H PRN oxcarbazepine (Trileptal) 300 mg PO DAILY pantoprazole 40 mg PO BID polyethylene glycol 3350 17 grams PO DAILY sertraline 50 mg PO DAILY HPI Comments Details: Right-handed 58-yr-old female presents for neurological evaluation of: dizziness and seizures. Pt's previous neurologist Dr Chamberlain has retired. PMH includes SLE (past tx plaquenil d/c'd d/t vision changes)- f/b [facility] [place] rheumatology, fibromyalgia, OA, h/o NSTEMI, CVA, HTN, HLD, GERD, hypothyroidism, mast cell d/o and mx allergies- f/b Dr Jimenez, asthma, chroinic constipation, tremor, anxiety and depression. MARY, Right CTS- f/b ortho. Pt reports that in 2014 in [place], she started having unprovoked convulsive seizures a/w LOC, loss of bladder control. Her typical seizure has aura of stomach upset and feeling chills, f/b blinking or going blank, f/b head starts shaking, eyes roll back, LOC, collapses, tonic/clonic convulsions, and as she comes out of it she loses bladder control. Has postictal fatigue and jaw pain x's 3 days. Denies intraictal tongue biting. Typically lasts- 2.5-3 minutes, longest attack was 6 minutes and her needed to call 911. as She was evaluated by neuro. Had positive EEG and states work-up showed an intracerebral vascular malformation . She was started on AED- low-dose Keppra. She continued to have seizures and sudden episodes of LOC, and Keppra was increased to 1500mg bid and eventually Trileptal was added which was changed to Aptiom 1,200mg qd as the Trileptal caused drowsiness and agitation. The Aptiom was much better tole rated, but stopped d/t the cost. After moving to [facility], Dr Diez restarted the Trileptal but she never took this. On Keppra, she had just mild breakthrough seizure activity- the blinking episodes. She tries to manage her stress, but she cannot stop a seizure after onset. She stopped her Keppra a few months ago, as she was worried about long-term cost. Off Keppra, has been having episodes of left facial/cheek pulling, has bitten the inside of her cheek. She believes she has nocturnal seizures, she wakes up w/ urinary incontinence and jaw pain. She states she typically does not drive, but states she did drive herself to today's appt (lives [place] [address]). Pt states she was born at 7 months, required ICU stay. Believes she met early developmental milestones at appropriate ages. 1st mild CVA - in 1996- states was caused by a severe headache- states dropped to the ground, took 2 ASA went to bed and when she woke up her lower face was twisted, w/ residual effect of left sided decreased sensation and strength mostly arm and face- sometimes the leg. She reports 2 other CVAs in 2008 and 2012- had episodes of slurred speech. Denies family h/o seizure. Recently, she was having room spinning vertigo a/w nausea triggered by movement, which is better vestibular therapy. She has RUE tremor x's 5 years. Started as a postural tremor when arm was elevated, but now comes with arm raised lower and when trying to do activities, such as making coffee. Head CT, 06/2023, tiny left basal ganglionic calcification, developmental variant. otherwise unremarkabole exam. Last EEG was > 5 yrs ago. Last EMG was > 5 yrs ago. [facility] Medical History (Updated 01/19/24 @ 14:57 by PEDRO Wen) Mast cell disorder Age-related osteoporosis without current pathological fracture Surgical History (Updated 01/18/24 @ 08:30 by JAYLENE Singer) H/O breast biopsy S/P cardiac cath Hx of tubal ligation Hx of right knee surgery H/O shoulder surgery Family History Mother Hypertension Heart disease Dementia High cholesterol Father Hypertension High cholesterol Social History Household Members: Spouse Housing: House Are you a primary healthcare consulting manager to a significant other at home: No Do you presently have visiting nurse or other home services: No 75 years or older and lives alone: No Alcohol intake: never Patient Tobacco Use Status: Never used Tobacco e-Cigarette/Vaping Use: Never Used service: No Current occupational status: disabled Review of Systems Const All systems reviewed & are unremarkable except as noted in HPI and below Physical Exam Vital Signs: Last Vital Signs Pulse 74 01/18/24 08:23 BP 144/98 H 01/18/24 08:23 Pulse Ox 98 01/18/24 08:23 Oxygen Delivery Method Room Air 01/18/24 08:23 BMI result Body Mass Index 31.1 Const General: cooperative and no acute distress Orientation/consciousness: patient oriented x3 HEENT Head: Yes normocephalic Resp Effort & Inspection: normal respiratory effort and able to speak in complete sentences Neuro Other: RUE postural tremor. No rest tremor. Mild RUE tightness. FFM intact. Bilateral posterior cervical tightness. Cervical ROM: mildly limited Left Spurling: elicits pain into left upper trap. Right Spurling: normal. Antalgic gait with cane. General: patient oriented x3, CN's II-XI intact bilaterally and deep tendon reflexes 2+ bilaterally Motor exam (neuro): 5/5 motor strength present throughout Psych Appearance: grossly normal Mental Status: mental status grossly normal Speech and movement: Clear speech present Affect: normal affect Attitude: cooperative Thought process: Normal thought process present Thought content: Normal thought content present Insight: Good insight present (Psych) Assessment & Plan Assessment & Plan (1) Seizure disorder: Code(s): G40.909 - Epilepsy, unspecified, not intractable, without status epilepticus Category: Medical (2) BPPV (benign paroxysmal positional vertigo): Code(s): H81.10 - Benign paroxysmal vertigo, unspecified ear Category: Medical Plan For seizure d/o: Liekly left cheek pulling episodes are r/t untreated seizure d/o. Will order EEG. Will request previous head imaging from [facility]. Pt advised to resume Keppra- start 750mg po bid and increase up to 1500mg bid. Add Vitamin B6 50mg bid- this may reduce Keppra's tendency to negatively affect mood. Consider revisiting Aptiom or Tegretol if breakthrough seizures persist. Previous trials- Trileptal- not tolerated- caused agitation. Pt advised on seizure precautions- instructed to NOT drive drive or engage in high risk activities (such as tub bathing/swimming alone, climbing, operating heavy machinery) x's 6 months after reaching therapeutic AED level AND last seizure. For BPPV: Monitor. Patient seen in collaboration with Dr. Perez. f/u in3-6 months or sooner prn. Orders: Orders EEG electroencephalogram 01/18/24 G40.909 - Epilepsy, unspecified, not intractable, without status epilepticus Medications: New pyridoxine (vitamin B6) 50 mg PO BID 30 days 60 tabs 6RF Coding Level of Care Code New Pt Level 4 (53452) Diagnoses Seizure disorder G40.909 BPPV (benign paroxysmal positional vertigo) H81.10
[2024-01-18 08:23] VITALS: BP 144/98; PULSE 74; O2SAT 98; BMI 31.1
== END 2024-01-18 09:48 | disposition home or self-care (01) ==
PROVIDERS: PCP Internal Medicine; Visit Provider Nurse Practitioner Family
DX: G40.909 Epilepsy, unspecified, not intractable, without status epilepticus (principal); H81.10 Benign paroxysmal vertigo, unspecified ear
CPT/HCPCS: 99204

== ENCOUNTER → 2024-01-18 08:07 | Outpatient (BNVA) | payer OTHER, SELFPAY | PROVIDERS: PCP Internal Medicine; Visit Provider Nurse Practitioner Family | DX: G40.909 Epilepsy, unspecified, not intractable, without status epilepticus (principal); H81.10 Benign paroxysmal vertigo, unspecified ear; M79.7 Fibromyalgia; Z86.73 Personal history of transient ischemic attack (TIA), and cerebral infarction without residual deficits | CPT/HCPCS: 99202 ==

== ENCOUNTER 2024-07-10 08:26 | Outpatient (AMB) | payer OTHER, SELFPAY ==
--- OUTSIDE RECORDS SUMMARY | 2024-07-10 08:36 | XMS_ITS | Clinical Summary ---
Author Organization [address] [facility] Address [address] [place] [address] Phone Care Team Providers Care Radiologic Technology Program Director Name Role Phone Lauro Muñoz MD Primary Care Provider Allergies Active Allergy Reactions Criticality Noted Date Comments Adhesive Tape-Silicones High 04/05/2021 Amlodipine 01/15/2020 Jaw numbness Bee Venom Protein (Honey Bee) 05/26/2020 Large local reaction Codeine 06/10/2018 Other Reaction(s): Hives/Urticaria Gadobutrol Medium 07/07/2020 Other Reaction(s): Hives/Urticaria Patient developed hives 15 min after MRI injection, radiologist suggested for any future contrast studies patient should premedicate for allergies//TT Hydroxyzine 12/29/2021 Hydroxyzine Hcl Swelling 06/10/2018 Hydroxyzine Pamoate 01/28/2021 Iodinated Contrast Media 02/18/2021 Lisinopril Cough 06/08/2022 Montelukast Headache 12/29/2021 Other 12/29/2021 Seasonal Allergies Piperacillin-Tazobactam High 06/10/2018 Other Reaction(s): Hives/Urticaria Povidone-Iodine Low 06/10/2018 Other Reaction(s): Hives/Urticaria Pregabalin Swelling 06/10/2018 Lip swelling Shellfish Containing Products 06/10/2018 Other Reaction(s): Hives/Urticaria anaphylaxis Shellfish Derived Anaphylaxis High 12/29/2021 Medications acetaminophen (TYLENOL 8 HOUR) 650 mg 8 hr tablet Take 1 Tablet by mouth 3 times daily for 20 days. 09/28/19 24 Active amitriptyline (ELAVIL) 10 mg tablet TAKE 1 TABLET BY MOUTH EVERY NIGHT AT BEDTIME MAY INCREASE BY 1 TABLET NIGHTLY A WEEK UP TO 4 TABLETS EVERY NIGHT AT BEDTIME 05/30/19 24 Active amLODIPine (NORVASC) 5 mg tablet Take 1 Tablet by mouth daily for 360 days. 01/11/20 24 Active atorvastatin (LIPITOR) 40 mg tablet TAKE 1 TABLET BY MOUTH DAILY 03/13/20 24 Active UNABLE TO FIND Calcium Carb-Cholecalci ferol 500-10 MG-MCG TAKE 1 TABLET BY MOUTH TWICE DAILY. 12/15/19 24 Active ketotifen (ZADITOR) 0.025 % ophthalmic solution 10/13/19 23 Active hydroCHLOROthiazid e 12.5 mg tablet Take 1 Tablet by mouth daily for 360 days. 09/28/19 24 025 Active incontinence pad, liner, disp pad 1 Each by Does not apply route daily. 06/19/19 24 Active meclizine (ANTIVERT) 25 mg tablet TAKE 1 TABLET BY MOUTH THREE TIMES DAILY NEEDED FOR VERTIGO Active nebulizer and compressor device Inhale 1 Each into the lungs 4 times daily as needed (for severe persistent asthma and cough dx: J45.50 , R05.9 ,R74.8 Lifetime use). 10/11/19 22 Active nitroglycerin (NITROSTAT) 0.[address] 1 Tablet under the tongue every 5 minutes as needed for Chest pain. 09/28/19 24 025 Active OXcarbazepine (TRILEPTAL) 300 mg tablet Take 300 mg by mouth 2 times daily. 03/04/20 21 Active pantoprazole (PROTONIX) 40 mg EC tablet TAKE 1 TABLET BY MOUTH TWICE DAILY 11/22/19 24 Active pyridoxine (B-6) 50 mg tablet TAKE 1 TABLET BY MOUTH TWICE DAILY 01/31/20 24 Active medical supply, miscellaneous (MISCELLANEOUS MEDICAL SUPPLY MISC) Sanitary Napkins & Tampons (EQL Super Maxi) Pads 240 1 Each by Does not apply route 4 times daily. - Does not apply 06/07/19 23 Active tiotropium (Spiriva Respimat) 1.25 mcg/actuation inhalation spray Inhale 2 Puffs into the lungs daily. 08/12/19 21 Active melatonin 5 mg tablet Take 1 Tablet by mouth at bedtime as needed (insomnia). 09/27/19 24 Active levETIRAcetam (KEPPRA) 750 mg tablet Take 1.5 Tablets by mouth 2 times daily. - Oral Active fluticasone-umecli dinium-vilanterol (Trelegy Ellipta) 100-62.5-25 mcg inhaler Take 1 Puff by mouth daily. - Oral Active aspirin (Adult Low Dose Aspirin) 81 mg EC tablet TAKE 1 TABLET BY MOUTH DAILY Active EPINEPHrine 0.3 mg/0.3 mL syringe Inject 1 Syringe into the shoulder, thigh, or buttocks if needed (alergic anaphylactic reaction). Inject 1 Device as directed as needed (anaphylaxis). Use as directed - Injection 1 each 3 04/08/20 24 Active gabapentin (NEURONTIN) 100 mg capsule Take 1 capsule (100 mg total) by mouth at bedtime. 90 capsule 1 04/15/20 24 Active levothyroxine (SYNTHROID, LEVOTHROID) 50 mcg tablet Take 1 tablet (50 mcg total) by mouth 1 (one) time each day. 90 tablet 2 04/15/20 24 Active ascorbic acid (VITAMIN C) 500 mg CR capsule Take 1 capsule (500 mg total) by mouth 2 (two) times a day. Active ondansetron ODT (ZOFRAN-ODT) 8 mg disintegrating tablet Dissolve 1 tablet (8 mg total) on top of the tongue every 8 (eight) hours if needed for nausea or vomiting. 60 tablet 11 05/07/20 24 Active diclofenac (VOLTAREN) 1 % topical gel Apply 2 g topically 4 (four) times a day. 100 g 06/02/19 25 026 Active albuterol 2.5 mg /3 mL (0.083 %) nebulizer solutionIndication s:Severe persistent asthma, unspecified whether complicated (CMS/HCC) Take 3 mL (2.5 mg total) by nebulization every 4 (four) hours if needed for wheezing or shortness of breath. Take 1 Vial by nebulization every 4 hours as needed for Wheezing, Shortness of Breath or Cough. - Nebulization 75 mL 07/10/19 25 Active albuterol 2.5 mg /3 mL (0.083 %) nebulizer solution Take 1 Vial by nebulization every 4 hours as needed for Wheezing, Shortness of Breath or Cough. - Nebulization 025 Discontin ued(Reord er) Active Problems Problem Noted Date Diagnosed Date Atypical chest pain 03/28/2024 Epigastric pain 03/28/2024 Primary hypertension 01/11/2024 Vomiting 06/22/2022 Chronic cough 06/06/2022 Overview (03/28/2024): Last Assessment & Plan: The cough has been since the respiratory tract infection in February. Her physical examination is normal, her chest x-ray back in February is normal but the patient is worried about the cough because she states that she is vomiting and losing weight. I have reassured her that I do not think that she has any sequela of COVID at this point. I will repeat another pulmonary function test when she comes back to see me in 3 months and I told her that most likely the cough is multifactorial and will disappear later by later. There is no indication for CT scan of the chest at this point. If the cough does not disappear another possibility is the NEGRO inhibitor's that she is taking for the high blood pressure. 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 Precordial pain 01/31/2021 NSTEMI (non-ST elevated myocardial infarction) 0 01/28/2021 Elevated serum tryptase 10/27/2020 Anxiety and depression 07/15/2020 GERD (gastroesophageal reflux disease) 1 Stroke 07/15/2020 Conjunctivitis, allergic, bilateral 05/26/2020 Perennial allergic rhinitis 05/26/2020 Tremor of right hand 04/06/2020 Essential hypertension 03/08/2020 Lumbar spondylosis 11/10/2019 Overview (03/28/2024): Last Assessment & Plan: Patient comes in for follow-up after trying physical therapy, she states it helped a little bit but she still has severe pain in the left buttock down the posterior thigh into the calf. She rates her current pain in the office 9/10. States typically during the day her pain is a 7-8/10, by nighttime it is always a 10/10. She has tried multiple [id number] pain meds, was prescribed naproxen, has tried gels, heat and ice. She went to physical therapy at [facility] in [place] for about 2 months, was going 2-3 times a week. Last night her pain was so bad she had to sleep on the sofa. She recently was given an injection in the left anterior hip at [facility], I did not help her left buttock and posterior leg pain. Ms. Mcdermott has an MRI from 1 year ago that did not show any disc herniations or nerve root compression, however she did not have her current symptoms at that time. She states the severe left posterior leg pain started about 3 to 4 months ago. She will need an updated lumbar spine MRI. I will review it with Dr. Roberson and call her with an update. It band syndrome, left 11/14/2018 Hypothyroidism 11/07/2018 Fibromyalgia 06/10/2018 Iron deficiency anemia due to chronic blood loss 06/10/2018 Lung nodule 06/10/2018 Overview (03/28/2024): Last Assessment & Plan: Stable pulmonary nodule in a non-smoker patient. No need for follow-up. Nodule is an 4 mm. Able since 2020. 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[facility]); Seizures ([facility]) 05/15/2024 10:59 AM EST - 05/15/2024 11:59 PM EST Hospital Encounter [facility] CT Scan [address] [place] [id number] Epigastric pain; Burping; Decreased appetite; Gastroesophageal reflux disease, unspecified whether esophagitis present; Bloating Discharge Disposition: Home or Self Care 05/07/2024 10:40 AM EST Office Visit Gastroenterology - [place] [address] [phone] Jimmy Diaz PA Epigastric pain (Primary Dx); Burping; Decreased appetite; Gastroesophageal reflux disease, unspecified whether esophagitis present; Bloating; 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1 (Non-US Trademark COMIRNATY Bivalent) 03/13/2022 WellTek SARS-CoV-2 COVID-19, mRNA, LNP-S, preservative free 02/29/2024,08/26/2021 Pneumococcal polysaccharide 23 valent (Pneumovax 23) 2yo and older 04/18/2019 Tdap Tetanus diptheria acell ular pertussis (Boostrix; Adacel) 7yo and older 11/07/2018 Zoster recombinant (Shingrix) 19yo and older 04/2021,05/27/2020 Surgical History Surgery Date Site/Laterality Comments KNEE SURGERY 2014 Right PROCEDURE: HISTORICAL KNEE SURGERY; COMMENT: 2009 & 2014 for meniscus tears (in [place]) SHOULDER SURGERY 1985 Right PROCEDURE: HISTORICAL SHOULDER SURGERY; COMMENT: 5 surgeries 1985 to 1991 for dislocations, 10 hooks in my shoulder COLONOSCOPY 11/2016 PROCEDURE: HISTORICAL COLONOSCOPY; COMMENT: sister age 39 colon CA, anemia. OTHER SURGICAL HISTORY 05/2017 PROCEDURE: HISTORICAL D&C; COMMENT: in [place] for menorrhagia, no cancer found BREAST BIOPSY PROCEDURE: BX BREAST; PERC NEEDLE CORE W/IMAG GUID OTHER SURGICAL HISTORY 12/11/2018 PROCEDURE: [facility] ENDOMETRIAL BX W/WO ENDOCERVIX BX W/O DILAT SPX; COMMENT: Dr. Gautam OTHER SURGICAL HISTORY 12/2018 Bilateral PROCEDURE: [place] UNLISTED PROCEDURE EYELIDS; COMMENT: for droopy eyelids BREAST LUMPECTOMY 2010 Bilateral PROCEDURE: HISTORICAL BREAST LUMPECTOMY; COMMENT: Breast biopsy negative OTHER SURGICAL HISTORY PROCEDURE: HISTORY OTHER; COMMENT: Cardiac cath x2 TUBAL LIGATION PROCEDURE: HISTORICAL TUBAL LIGATION Medical History Medical History Date Comments Systemic lupus erythematosus ([facility]) 06/10/2018 DX:Systemic lupus erythemato lucero ([facility]) Seizures ([facility]) 06/10/2018 DX:Seizures ( [facility]); COMMENT: 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 Fibromyalgia 08/2012 DX:Fibromyalgia; COMMENT: since 2012 Menorrhagia with irregular cycle 06/10/2018 DX:Menorrhagia with irregular cycle Iron deficiency anemia due t o chronic blood loss 06/10/2018 DX:Iron deficiency anemia du e to chronic blood loss Family history of colon cancer 06/10/2018 D X:Family history of colon cancer Severe persistent asthma 06/10/2018 DX:Bambi re persistent asthma Anxiety and depression DX:Anxiet y and depression CAD (coronary artery disease) DX :CAD (coronary artery disease); COMMENT: s/p NC in 1998 CVA (cerebral vascular accid ent) ([facility]) DX:CVA (cerebral vascular ac cident) ([facility]); COMMENT: CVA in 1996, with residual L hand weakness. TIA in 1998 Lung nodules DX:Lung nodules Depression DX:Depression Asthma DX:Asthma Anemia DX:Anemia Acute systemic lupus erythem atosus (CMS/HCC) DX:Acute systemic lupus eryt hematosus (HCC) Atypical chest pain DX:Atypical chest pain Epigastric pain DX:Epigastric pa in Esophageal reflux DX:Esophageal reflux Family history of colon canc er in mother DX:Family history of colon c ancer in mother HTN (hypertension) DX:HTN (hyper tension) High cholesterol DX:High cholest emilio Mast cell disorder DX:Mast cell disorder Old myocardial infarction 03/01/2022 DX:Old myocardial infarction; COMMENT: Old myocardial infarction Nausea and vomiting DX:Nausea an d vomiting Gastric regurgitation DX:Gastric regurgitation Cough DX:Cough Family History Medical History Relation Name Comments Breast cancer Aunt Paternal aunt Coronary artery disease Father hype rlipidemia, mild multiple sclerosis Colon cancer Mother Other: stroke, NC, dementia Mother Colon cancer Sister 1 Parul she's 52 as of 05/2018 Breast cancer Sister 2 Half sister Leukemia Sister 2 Other: Army Captain 05/2018 Son 1 Jack Other: AFFiRiS Son 2 Adiel Relation Name Status Comments Aunt Alive Father Alive Mother Alive Sister 1 Parul Alive Sister 2 Alive Son 1 Jack Alive Son Kei Chun Alive Social History Tobacco Use Types Packs/Day Years Used Date Smoking Tobacco: Never Smokeless Tobacco: Never Tobacco Cessation:Counseling Given: Not Answered Alcohol Use Standard Drinks/Week Comments Yes 0 (1 standard drink = 0.6 oz pur e alcohol) Comments Unknown Sex and Gender Information Value Date Recorded Sex Assigned at Female 05/15/2024 10:59 AM EST Legal Sex Female 4:36 AM EST Gender Identity Female 05/15/2024 10:59 AM EST Sexual Orientation Not on file Obstetrics History Last Filed Vital Signs Vital Sign Reading Time Taken Comments Blood Pressure 138/80 06/02/2024 1:14 PM EST Pulse 69 06/02/2024 1:14 PM EST Temperature 36 ??C (96.8 ??F) 06/02/2024 1:14 PM EST Respiratory Rate - - Oxygen Saturation 97% 06/02/2024 1:14 PM EST Inhaled Oxygen Concentration - - Weight 82.6 kg (182 lb) 06/02/2024 1:14 PM EST Height 165.1 cm (5' 5 ) 05/07/2024 11:06 AM EST Body Mass Index 30.29 05/07/2024 11:06 AM EST Plan of Treatment Upcoming Encounters Date Type Department Care Team (Late st Contact Info) Description 01/27/2025 9:45 AM EDT [facility]ointment [facility] [address] [phone] Health Maintenance Due Date Last Done Comments Hepatitis A Vaccines (1 of 2 - Risk 2-dose series) 1986 Hepatitis B Vaccines (1 of 3 - 19+ 3-dose series) 1986 Pneumococcal Vaccine: 50+ Years (2 of 2 - PCV) 04/18/2020 04/18/2019 Pneumococcal Vaccine: Pediatrics (0 to 5 Years) and At-Risk Patients (6 to 64 Years) (2 of 2 - PCV) 04/18/2020 04/18/2019 HIV Screening 05/06/2022 Medicare Annual Wellness Visit 05/06/2022 Social Influencers of Health Screening 05/06/2022 Influenza Vaccine (#1) 2024 , 03/01/2022, 03/15/2021, Additional history exists COVID-19 Vaccine ( season) 2024 02/29/2024, 03/05/2023, 08/26/2021, Additional history exists Breast Cancer Screening 01/31/2025 02/01/20 23, 01/17/2023, 12/27/2022, Additional history exists Depression Screening 03/04/2025 03/04/2024 Hypertension/CHF/CAD Annual BMP Blood Test 06/10/2025 06/10/2024, 05/07/2024, 03/04/2024, Additional history exists Cervical Cancer Screening: Pap Smear 11/07/2025 11/07/2022 DTaP,Tdap,and Td Vaccines (3 - Td or Tdap) 11/07/2028 11/07/2018, 04/04/2013 Cholesterol Screening (Lipid Panel) 03/04/2029 03/04/2024, 03/04/2024 Colorectal Cancer Screening: Colonoscopy 04/07/2031 04/07/2021 Hepatitis C Screening Completed 03/06/2019 Zoster Vaccines Completed 10/06/2020, 05/27/2020 HIB Vaccines Aged Out No longer eligi ble based on patient's age to complete this topic HPV Vaccines Aged Out No longer eligi ble based on patient's age to complete this topic IPV Vaccines Aged Out No longer eligi ble based on patient's age to complete this topic MMR Vaccines Aged Out No longer eligi ble based on patient's age to complete this topic Meningococcal ACWY Vaccine Aged Out N o longer eligible based on patient's age to complete this topic Meningococcal B Vacine Aged Out No lo nger eligible based on patient's age to complete this topic RSV Immunization Patients Under 20 months Aged Out No longer eligible based on patient's age to complete this topic Varicella Vaccines Aged Out No longer eligible based on patient's age to complete this topic Procedures Procedure Name Priority Date/Time Associated Diagnosis Comments BASIC METABOLIC PANEL Routine 06/10/2024 10:00 AM EST MEMO (acute kidney injury) ([facility]) CT ABDOMEN PELVIS WO CONTRAST Routine 05/15/2024 11:15 AM EST Epigastric pain Burping Decreased appetite Gastroesophageal reflux disease, unspecified whether esophagitis present Bloating CBC WITH AUTO DIFFERENTIAL Routine 05/07/2024 12:00 PM EST Epigastric pain Burping Decreased appetite Gastroesophageal reflux disease, unspecified whether esophagitis present Bloating LIPASE Routine 05/07/2024 12:00 PM EST Epigastric pain Burping Decreased appetite Gastroesophageal reflux disease, unspecified whether esophagitis present Bloating FERRITIN Routine 05/07/2024 12:00 PM EST Epigastric pain Burping Decreased appetite Gastroesophageal reflux disease, unspecified whether esophagitis present Bloating C-REACTIVE PROTEIN Routine 05/07/2024 12 :00 PM EST Epigastric pain Burping Decreased appetite Gastroesophageal reflux disease, unspecified whether esophagitis present Bloating COMPREHENSIVE METABOLIC PANEL Routine 05/07/2024 12:00 PM EST Epigastric pain Burping Decreased appetite Gastroesophageal reflux disease, unspecified whether esophagitis present Bloating CBC AND DIFFERENTIAL Routine 05/07/2024 12:00 PM EST Epigastric pain Burping Decreased appetite Gastroesophageal reflux disease, unspecified whether esophagitis present Bloating DEPRESSION SCREENING Routine 03/04/2024 LIPID PANEL Routine 03/04/2024 DX MAMMO INCL CAD UNI Routine 01/31/2023 1:18 PM EDT Other abnormal and inconclusive findings on diagnostic imaging of breast HM PAP SMEAR Routine 11/07/2022 COLONOSCOPY Routine 04/07/2021 HEPATITIS C SCREENING Routine 03/06/2019 from Last 3 Months or Most Recently Relevant to Health Maintenance Results * Basic metabolic panel (06/10/2024 10:00 AM EST) Sodium 138 133 - 145 mmol/L LAB CHEMISTRY METHOD 06/10/2024 9:47 PM [facility] Potassium 4.5 3.5 - 5.5 mmol/L LAB CHEMISTRY METHOD 06/10/2024 9:47 PM [facility] Chloride 105 96 - 110 mmol/L LAB CHEMISTRY METHOD 06/10/2024 9:47 PM [facility] CO2 27 21 - 32 mmol/L LAB CHEMISTRY METHOD 06/10/2024 9:47 PM [facility] Anion Gap 6 3 - 11 LAB CHEMISTRY METHOD 06/10/2024 9:47 PM [facility] Glucose 95 70 - 100 mg/dL LAB CHEMISTRY METHOD 06/10/2024 9:47 PM [facility] BUN 13 5 - 25 mg/dL LAB CHEMISTRY METHOD 06/10/2024 9:47 PM [facility] Creatinine 0.91 0.50 - 1.10 mg/dL LAB CHEMISTRY METHOD 06/10/2024 9:47 PM EST [facility] eGFR 74 >=60 mL/min/1. 73m2 LAB CHEMISTRY METHOD 06/10/2024 9:47 PM EST [facility] Comment:Calculation based on the??Chronic Kidney Disease Epidemiology Collaboration (CKD-EPI) equation refit??without adjustment for race. BUN/Creatinine Ratio 14.3 LAB CHEMISTRY METHOD 06/10/2024 9:47 PM EST [facility] Calcium 9.3 8.5 - 10.5 mg/dL LAB CHEMISTRY METHOD 06/10/2024 9:47 PM EST [facility] Blood Venous blood specimen / Unknown Venipuncture / Unknown 06/10/2024 10:00 AM EST 06/10/2024 10:00 AM EST Lauro Muñoz MD LAB BLOOD ORDERABLES Final Resul t [facility] [address] [place] [address], [place] [phone] * CT Abdomen Pelvis wo Contrast (05/15/2024 11:15 AM EST) Anatomical Region Laterality Modality Body Computed Tomogra phy 05/16/2024 10:0 2 AM EST Impressions 05/16/2024 10:17 AM EST No acute inflammatory process. ??Normal appearance of the abdomen. -------- FINAL REPORT -------- Dictated By: Gianluca Hardy Dictated Date: 05/16/2024 10:02 ET Assigned Physician: Gianluca Hardy Reviewed and Electronically Signed By: Gianluca Hardy Signed Date: 05/16/2024 10:17 ET Workstation ID: [id number] Transcribed By: Self Edit Transcribed Date: 05/16/2024 10:02 ET Narrative 05/16/2024 10:[address] abdomen and pelvis without contrast HISTORY: ??Epigastric pain COMPARISON: ??CT abdomen and pelvis January 2019 TECHNIQUE: Volumetric MDCT of the abdomen and pelvis was done from the lung bases to the symphysis pubis. ??No intravenous contrast was used. ??Enteric contrast was given. ??This is a limited study. ??The following dose reduction technique was used: Dose was minimized by utilizing adaptive iterative reconstruction. DOSE: CTDIvol: 25.0mGy. ??Total exam DLP: 1502.9mGy-cm FINDINGS: Lung Bases: ??minimal atelectasis. Liver:Liver appears normal. Biliary:Gall bladder appears normal. No biliary dilation. Pancreas: Pancreas appears normal. No atrophy or ductal dilation. Spleen: ??Spleen is normal in size. Adrenals: ??Symmetric without nodule Kidneys: Appear normal without hydronephrosis Retroperitoneum: ??No abnormal lymphadenopathy. ??Atherosclerotic disease of the aorta without aneurysm. Pelvis: ??Pelvis appears within normal limits. ??No abnormal lymphadenopathy. Bowel and Peritoneal Cavity: ??Diverticulosis of the distal colon. ??No acute inflammatory process. ??Enteric contrast was given and extends into the distal colon without evidence of obstruction. ??Normal appendix. Abdominal Wall: ??No significant hernias are noted. Skeletal: Minimal degenerative changes in the spine. Procedure Note Gianluca Hardy MD - 05/16/2024 CT abdomen and pelvis without contrast HISTORY: Epigastric pain COMPARISON: CT abdomen and pelvis January 2019 TECHNIQUE: Volumetric MDCT of the abdomen and pelvis was done from thelung bases to the symphysis pubis. No intravenous contrast was used.Enteric contrast was given. This is a limited study. The following dosereduction technique was used: Dose was minimized by utilizing adaptiveiterative reconstruction. DOSE: CTDIvol: 25.0mGy. Total exam DLP: 1502.9mGy-cm FINDINGS: Lung Bases: minimal atelectasis. Liver:Liver appears normal. Biliary:Gall bladder appears normal. No biliary dilation. Pancreas: Pancreas appears normal. No atrophy or ductal dilation. Spleen: Spleen is normal in size. Adrenals: Symmetric without nodule Kidneys: Appear normal without hydronephrosis Retroperitoneum: No abnormal lymphadenopathy. Atherosclerotic disease ofthe aorta without aneurysm. Pelvis: Pelvis appears within normal limits. No abnormallymphadenopathy. Bowel and Peritoneal Cavity: Diverticulosis of the distal colon. Noacute inflammatory process. Enteric contrast was given and extends intothe distal colon without evidence of obstruction. Normal appendix. Abdominal Wall: No significant hernias are noted. Skeletal: Minimal degenerative changes in the spine. IMPRESSION: No acute inflammatory process. Normal appearance of the abdomen. -------- FINAL REPORT -------- Dictated By: Gianluca Hardy Dictated Date: 05/16/2024 10:02 ET Assigned Physician: Gianluca Hardy Reviewed and Electronically Signed By: Gianluca Hardy Signed Date: 05/16/2024 10:17 ET Workstation ID: [id number] Transcribed By: Self Edit Transcribed Date: 05/16/2024 10:02 ET Jimmy MCCORMACK IM CT PROCEDURES Final Result * (ABNORMAL) CBC auto differential (05/07/2024 12:00 PM EST) WBC 7.5 4.8 - 10.8 K/mcL LAB HEMETOLOGY METHOD 05/07/2024 2:21 PM [facility] RBC 5.30(H) 3.80 - 4.80 M/mcL LAB HEMETOLOGY METHOD 05/07/2024 2:21 PM [facility] Hemoglobin 14.4 11.5 - 16.0 g/dL LAB HEMETOLOGY METHOD 05/07/2024 2:21 PM [facility] Hematocrit 46.6 35.0 - 47.0 % LAB HEMETOLOGY METHOD 05/07/2024 2:21 PM [facility] MCV 87.9 79.0 - 98.0 FL LAB HEMETOLOGY METHOD 05/07/2024 2:21 PM [facility] MCH 27.2 27.0 - 32.0 pcg LAB HEMETOLOGY METHOD 05/07/2024 2:21 PM [facility] MCHC 30.9(L) 32.0 - 37.0 g/dL LAB HEMETOLOGY METHOD 05/07/2024 2:21 PM [facility] RDW 13.2 11.0 - 15.0 % LAB HEMETOLOGY METHOD 05/07/2024 2:21 PM [facility] Platelets 262 130 - 400 K/mcL LAB HEMETOLOGY METHOD 05/07/2024 2:21 PM [facility] MPV 10.2 7.0 - 11.0 FL LAB HEMETOLOGY METHOD 05/07/2024 2:21 PM [facility] NRBC 0.0 <1.0 % LAB HEMETOLOGY METHOD 05/07/2024 2:21 PM [facility] NRBC Absolute 0.00 <0.10 K/mcL LAB HEMETOLOGY METHOD 05/07/2024 2:21 PM [facility] Neutrophils Relative 65.7 % LAB HEMETOLOGY METHOD 05/07/2024 2:21 PM [facility] Lymphocytes Relative 26.7 % LAB HEMETOLOGY METHOD 05/07/2024 2:21 PM [facility] Monocytes Relative 5.2 % LAB HEMETOLOGY METHOD 05/07/2024 2:21 PM [facility] Eosinophils Relative 1.7 % LAB HEMETOLOGY METHOD 05/07/2024 2:21 PM [facility] Basophils Relative 0.4 % LAB HEMETOLOGY METHOD 05/07/2024 2:21 PM [facility] Immature Granulocytes Relative 0.3 % LAB HEMETOLOGY METHOD 05/07/2024 2:21 PM [facility] Neutrophils Absolute 4.90 1.50 - 7.00 K/mcL LAB HEMETOLOGY METHOD 05/07/2024 2:21 PM [facility] Lymphocytes Absolute 1.99 1.00 - 5.00 K/mcL LAB HEMETOLOGY METHOD 05/07/2024 2:21 PM [facility] Monocytes Absolute 0.39 0.20 - 1.00 K/mcL LAB HEMETOLOGY METHOD 05/07/2024 2:21 PM EST [facility] Eosinophils Absolute 0.13 0.00 - 0.50 K/[facility] LAB HEMETOLOGY METHOD 05/07/2024 2:21 PM EST [facility] Basophils Absolute 0.03 0.00 - 0.20 K/[facility] LAB HEMETOLOGY METHOD 05/07/2024 2:21 PM EST [facility] Immature Granulocytes Absolute 0.02 0.00 - 0.03 K/[facility] LAB HEMETOLOGY METHOD 05/07/2024 2:21 PM EST [facility] Blood Venous blood specimen / Unknown Venipuncture / Unknown 05/07/2024 12:00 PM EST 05/07/2024 12:00 PM EST us Jimmy MCCORMACK LAB BLOOD ORDERABLES Final Resu lt [facility] [address] [place] [address], [place] [phone] * C-reactive protein (05/07/2024 12:00 PM EST) [facility] C-Reactive Protein <0.29 <=0.50 mg/dL LAB CHEMISTRY METHOD 05/07/2024 3:12 PM EST [facility] Blood Venous blood specimen / Unknown Venipuncture / Unknown 05/07/2024 12:00 PM EST 05/07/2024 12:00 PM EST us Jimmy MCCORMACK LAB BLOOD ORDERABLES Final Resu lt [facility] [address] [place] [address], [place] [phone] * Lipase (05/07/2024 12:00 PM EST) Pathologist [facility] Lipase 36 13 - 75 unit/L LAB CHEMISTRY METHOD 05/07/2024 3:12 PM EST [facility] Blood Venous blood specimen / Unknown Venipuncture / Unknown 05/07/2024 12:00 PM EST 05/07/2024 12:00 PM EST us Jimmy MCCORMACK LAB BLOOD ORDERABLES Final Resu lt [facility] [address] [place] [address], [place] [phone] * Ferritin (05/07/2024 12:00 PM EST) [facility] Ferritin 171 8 - 252 ng/mL LAB CHEMISTRY METHOD 05/07/2024 3:17 PM EST [facility] Blood Venous blood specimen / Unknown Venipuncture / Unknown 05/07/2024 12:00 PM EST 05/07/2024 12:00 PM EST us Jimmy MCCORMACK LAB BLOOD ORDERABLES Final Resu lt Performing Organization Address City/[facility]/ZIP Co de Phone Number [facility] [address] [place] [address], [place] [phone] * (ABNORMAL) Comprehensive metabolic panel (05/07/2024 12:00 PM EST) [facility] Sodium 137 133 - 145 mmol/L LAB CHEMISTRY METHOD 05/07/2024 3:17 PM EST [facility] Potassium 4.4 3.5 - 5.5 mmol/L LAB CHEMISTRY METHOD 05/07/2024 3:17 PM EST [facility] Chloride 101 96 - 110 mmol/L LAB CHEMISTRY METHOD 05/07/2024 3:17 PM EST [facility] CO2 31 21 - 32 mmol/L LAB CHEMISTRY METHOD 05/07/2024 3:17 PM EST [facility] Anion Gap 5 3 - 11 LAB CHEMISTRY METHOD 05/07/2024 3:17 PM [facility] Glucose 87 70 - 100 mg/dL LAB CHEMISTRY METHOD 05/07/2024 3:17 PM [facility] BUN 16 5 - 25 mg/dL LAB CHEMISTRY METHOD 05/07/2024 3:17 PM [facility] Creatinine 1.29(H) 0.50 - 1.10 mg/dL LAB CHEMISTRY METHOD 05/07/2024 3:17 PM [facility] eGFR 49(L) >=60 mL/min/1. 73m2 LAB CHEMISTRY METHOD 05/07/2024 3:17 PM [facility] Comment:Calculation based on the??Chronic Kidney Disease Epidemiology Collaboration (CKD-EPI) equation refit??without adjustment for race. BUN/Creatinine Ratio 12.4 LAB CHEMISTRY METHOD 05/07/2024 3:17 PM [facility] Calcium 9.9 8.5 - 10.5 mg/dL LAB CHEMISTRY METHOD 05/07/2024 3:17 PM [facility] AST (SGOT) 19 10 - 42 unit/L LAB CHEMISTRY METHOD 05/07/2024 3:17 PM [facility] ALT (SGPT) 48 10 - 60 unit/L LAB CHEMISTRY METHOD 05/07/2024 3:17 PM [facility] Alkaline Phosphatase 97 42 - 121 unit/L LAB CHEMISTRY METHOD 05/07/2024 3:17 PM [facility] Total Protein 7.8 6.0 - 8.0 g/dL LAB CHEMISTRY METHOD 05/07/2024 3:17 PM [facility] Albumin 4.4 3.2 - 5.0 g/dL LAB CHEMISTRY METHOD 05/07/2024 3:17 PM [facility] Total Bilirubin 0.6 0.0 - 1.4 mg/dL LAB CHEMISTRY METHOD 05/07/2024 3:17 PM [facility] Blood Venous blood specimen / Unknown Venipuncture / Unknown 05/07/2024 12:00 PM EST 05/07/2024 12:00 PM EST Jimmy MCCORMACK LAB BLOOD ORDERABLES Final Resu lt [facility] [address] [place] [address], [place] [phone] * Depression Screening (03/04/2024) Depression Screening Abstracted Historical Provider HEALTH MAINTENANCE Final Result * (ABNORMAL) Lipid panel (03/04/2024) Pathologist [facility] LDL/HDL Ratio 4 0 - 4 Triglycerides 277(A) 0 - 150 mg/dL Cholesterol 233(A) 0 - 200 mg/dL HDL 62 >=40 mg/dL LDL Cholesterol 116(A) 0 - 100 mg/dL Blood Venous blood specimen / Unknown Historical Provider LAB BLOOD ORDERABLES Nuha l Result * DX MAMMO INCL CAD UNI (01/31/2023 1:18 PM EDT) Anatomical Region Laterality Modality Mammography 01/17/2023 10:1 7 AM EDT Narrative 01/31/2023 1:57 PM EDT 2 view digital mammogram left breast for clip placement: See combined report with ultrasound-guided core biopsy clip placement of the same day. Procedure Note Priscilla Reyna MD - 07/03/2023 2 view digital mammogram left breast for clip placement: See combinedreport with ultrasound-guided core biopsy clip placement of the same day. Lauro Muñoz MD IMG BI PROCEDURES Final Result * Pap Smear (11/07/2022) Pap smear No Interpretation , Abstracted Historical Provider HEALTH MAINTENANCE Final Result * Colonoscopy (04/07/2021) Colonoscopy No Interpretation , Abstracted Anatomical Region Laterality Modality Other Historical Provider HEALTH MAINTENANCE Final Result * Hepatitis C Screening (03/06/2019) Hepatitis C Screening Abstracted Historical Provider HEALTH MAINTENANCE Final Result from Last 3 Months or Most Recently Relevant to Health Maintenance Insurance [facility] MEDIC[facility] Member Subscriber Plan / Payer (Ef fective 2018-Present) Name:Destinee Mcdemrott Relation to Subscriber:Self Name:Destinee Mcdermott Payer ID:[id number] Group ID:[id number] Type:Not on file Address: [place] [address] [place] [address] Care Teams Radiologic Technology Program Director Relationship Specialty Start Date End Date Lauro Muñoz MD [address] [place] [address] PCP - General 08/29/22
--- OUTSIDE RECORDS SUMMARY | 2024-07-10 08:36 | XMS_ITS | Clinical Summary ---
Author Organization [facility] Address [address] [place] [address] Care Team Providers Care Bessemer Regulator Name Role Phone Nadege Anderson Primary Care Provider [phone] Allergies Active Allergy Reactions Criticality Noted Date Comments Amlodipine 07/12/2020 Jaw numbness Codeine Other (See Comments) 06/10/2018 Hydroxyzine Swelling 06/10/2018 Povidone Iodine Other (See Comments) 06/10/2018 Pregabalin Swelling 06/10/2018 Shellfish Allergy Other (See Comments) 06/10/19 19 Piperacillin Sod-Tazobactam So Other (See Comments) High 06/10/2018 Medications Medication Sig Dispensed Refills Start Date End Date Status albuterol (PROVENTIL) (2.5 MG/3ML) 0.083% nebulizer solution Inhale 2.5 mg into the lungs. 0 06/10/2018 Active hydroxychloroquine (PLAQUENIL) 200 MG tablet Take 300 mg by mouth. 0 Active levothyroxine (SYNTHROID, LEVOXYL) tablet 25 mcg Take 50 mcg by mouth. 0 08/02/2018 Active levETIRAcetam (KEPPRA) 750 MG tablet Take 1,500 mg by mouth. 0 Active aspirin EC 81 MG tablet Take 81 mg by mouth daily. 0 Active omeprazole (PriLOSEC) 40 MG capsule Take 40 mg by mouth daily. 0 Active sucralfate (CARAFATE) 1 g tablet Take 1 g by mouth 4 (four) times a day. 0 Active EPINEPHrine 0.3 MG/0.3ML SOAJ Inject 0.3 mg into the muscle once. 0 Active montelukast (SINGULAIR) 10 MG tablet Take 10 mg by mouth every night at bedtime. 0 Active losartan (COZAAR) tablet 25 mg Take 25 mg by mouth daily. 0 Active fluticasone-vilanter ol (Breo Ellipta) 100-25 MCG/INH inhaler 1 inhalation by Inhaled route daily. 0 Active albuterol (PROVENTIL HFA;VENTOLIN HFA) 108 (90 Base) MCG/ACT inhaler Inhale 2 puffs into the lungs every 4 (four) hours as needed for wheezing. 0 Active acetaminophen (TYLENOL) 650 MG CR tablet Take 650 mg by mouth every 8 (eight) hours as needed for pain. 0 Active atorvastatin (LIPITOR) tablet 20 mg Take 20 mg by mouth daily. 0 Active polyethylene glycol (MIRALAX) 17 g packet Take 17 g by mouth daily. 0 Active sertraline (ZOLOFT) 50 MG tablet Take 50 mg by mouth daily. 0 Active SUMAtriptan (IMITREX) 50 MG tablet Take 50 mg by mouth every 2 (two) hours as needed for migraine. 0 Active Diclofenac Sodium 1 % CREA Apply 2 g topically 2 (two) times a day. 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) Prior history of pos RACHEL, arthralgias, rash, seizures On hydroxychloroquine initially 2009 last eye exam 03/15, 11/14 Severe persistent asthma 06/10/2018 Family History Medical History Relation Name Comments Heart disease Father Hypertension Father Clotting disorder Mother Heart disease Mother Hypertension Mother Cancer Sister Relation Name Status Comments Father Mother Sister Social History Tobacco Use Types Packs/Day Years Used Date Smoking Tobacco: Never Smokeless Tobacco: Never Alcohol Use Standard Drinks/Week Comments No 0 (1 standard drink = 0.6 oz pur e alcohol) Sex and Gender Information Value Date Recorded Sex Assigned at Not on file Gender Identity Not on file Sexual Orientation Not on file Job Start Date Occupation Industry Not on file Not on file Not on file Last Filed Vital Signs Vital Sign Reading Time Taken Comments Blood Pressure 156/89 10/07/2020 10:28 AM EDT Pulse 85 10/07/2020 10:28 AM EDT Temperature 36.2 ??C (97.1 ??F) 10/07/2020 1 0:28 AM EDT Respiratory Rate - - Oxygen Saturation 100% 10/07/2020 10: 28 AM EDT Inhaled Oxygen Concentration - - Weight 86.5 kg (190 lb 12.8 oz) 021 10:28 AM EDT Height 165.1 cm (5' 5 ) 10/07/2020 10:2 8 AM EDT Body Mass Index 31.75 10/07/2020 10:28 AM EDT Plan of Treatment Health Maintenance Due Date Last Done Comments Hepatitis B Vaccines (1 of 3 - 3-dose series) 1967 Hepatitis C Screening 1967 Depression Screening 1979 BMI Counseling 1985 Preventative Health Evaluation 1985 Cervical Cancer Screening (Pap Smear) 1988 Colon Cancer Screening (Colonoscopy) 2012 Breast Cancer Screening (Mammogram) 2017 Shingrix-Zoster Vaccine (1 o f 2) 2017 Pneumococcal Vaccine (2 of 2 - PCV) 04/18/2020 04/18/2019 COVID-19 Vaccine (3 - 2023-2 5 season) 2024 08/12/2020, 07/15/2020 Influenza Vaccine (#1) 2024 02/24/2020 DTap / Tdap / Td (2 - Td or Tdap) 11/07/2028 11/07/2018 RSV Ped < 20 months Aged Out No longe r eligible based on patient's age to complete this topic Care Teams Bessemer Regulator Relationship Specialty Start Date End Date Nadege Anderson Nallely [address] [place] [id number] PCP - General Internal Medicine 09/25/18
--- NOTE | 2024-07-10 08:38 | A.OFFVIS_ITS ---
Vital Signs 07/10/24 08:43 Height 5 ft 5 in Weight 182 lb 4 oz BMI 30.3 BP 154/120 H Blood Pressure Location Lt brachial Position Sitting Pulse 71 Pulse Source Pulse Oximeter Pulse Oximetry (%) 98 Oxygen Delivery Method Room Air Intake Visit Reasons: SLE Intake Note: Patient presents for SLE. Allergies codeine Allergy (Unknown, Verified 07/10/24 08:42) Unknown hydroxyzine [From Vistaril] Allergy (Unknown, Verified 07/10/24 08:42) Unknown piperacillin [From Zosyn] Allergy (Unknown, Verified 07/10/24 08:42) Unknown pregabalin [From Lyrica] Allergy (Unknown, Verified 07/10/24 08:42) Unknown shellfish derived Allergy (Unknown, Verified 07/10/24 08:42) UNKNOWN tazobactam [From Zosyn] Allergy (Unknown, Verified 07/10/24 08:42) Unknown lisinopril Adverse Reaction (Intermediate, Verified 07/10/24 08:42) Cough BEES Allergy (Unknown, Uncoded 01/18/24 08:27) Unknown BETADYNE Allergy (Unknown, Uncoded 01/18/24 08:27) UNKNOWN GADAVIST Allergy (Unknown, Uncoded 01/18/24 08:27) Unknown HYDROXYZINE Allergy (Unknown, Uncoded 01/18/24 08:27) UNKNOWN iv CONTRAST Allergy (Unknown, Uncoded 01/18/24 08:27) Unknown cortisone Adverse Reaction (Severe, Uncoded 01/18/24 08:27) hair loss Medication List - Last Reconciled 07/10/24 by Harper Syed MD acetaminophen ER (Tylenol 8 Hour) 650 mg PO Q12H PRN albuterol sulfate 90 mcg/actuation 2 puffs inhalation Q6H PRN aspirin (Adult Low Dose Aspirin) 81 mg PO DAILY atorvastatin 20 mg PO DAILY bepotastine besilate 1.5% 1 drp ophthalmic (eye) BID calcium carbonate-vitamin D3 500 mg-10 mcg (400 unit) 1 tab PO BID diclofenac sodium 3% 1 appl topical BID epinephrine 0.3 mg IM Q4H PRN fexofenadine (Allergy Relief (fexofenadine)) 0 mg PO fluticasone propionate 50 mcg/actuation 2 sprays intranasal DAILY gabapentin 100 mg PO BEDTIME hydrochlorothiazide 12.5 mg PO DAILY ibuprofen 800 mg PO Q8H PRN levetiracetam (Keppra) 1 tab bid x's 2 weeks, then 2 tabs bid orally 2 times a day; 30 days levothyroxine 50 mcg PO DAILY lisinopril 10 mg PO DAILY loratadine 10 mg PO DAILY nitroglycerin (Nitrostat) 0.4 mg sublingual Q5M PRN ondansetron HCl 4 mg PO Q8H PRN oxcarbazepine (Trileptal) 300 mg PO DAILY pantoprazole 40 mg PO BID polyethylene glycol 3350 17 grams PO DAILY pyridoxine (vitamin B6) 50 mg PO BID 30 days sertraline 50 mg PO DAILY HPI Comments Details: Patient is a 59-year-old female with hypertension complicated by CVAs/TIAs, hx of seizures, hyperlipidemia, hypothyroidism, GERD, anxiety/depression, and SLE in remission here today for follow up Interval History: Patient last seen 07/30/2023 with Gerri Monae. At that time she remained w ithout inflammatory activity. Complained of back, hip and knee pains. With plans for joint replacement. Today, right shoulder pain - had a seizure, fell on her right shoulder which has a history of repair and now going through PT with plans of surgery Gets intermittent malar rash Hands - Knuckles getting swollen Fatigue - overwhelming fatigue Rheumatologic History: DDx 2006 in [place] Methotrexate and steroids for years - stopped in 2017 [facility] Prior history of pos RACHEL, arthralgias, rash, seizures On hydroxychloroquine initially 2009 last eye exam 03/15, 11/14,09/2021, 05/2022 No lupus activity in 2022 Law Firm Partner: Mass cell disorder, going to [place] November 19 for consult. l - increased sensitivity to smells, worsened allergies, ENT - Vertigo therapy starting on 08/02. EYEs: Continue the drug Holiday from HCQ per . Current Rheumatology Medication(s): [facility] Medical History (Updated 07/10/24 @ 09:23 by Harper Syed MD) Mast cell disorder Surgical History H/O breast biopsy S/P cardiac cath Hx of tubal ligation Hx of right knee surgery H/O shoulder surgery Family History Mother Hypertension Heart disease Dementia High cholesterol Father Hypertension High cholesterol Social History Household Members: Spouse Housing: House Are you a primary director career to a significant other at home: No Do you presently have visiting nurse or other home services: No 75 years or older and lives alone: No Alcohol intake: never Patient Tobacco Use Status: Never used Tobacco e-Cigarette/Vaping Use: Never Used service: No Current occupational status: disabled Review of Systems Const Details: Review of Systems Constitutional: Denies fever, chills, weight loss ENT: Denies vision changes, eye pain or eye redness, dental caries, dry mouth GI: Denies nausea, vomiting, diarrhea, abdominal pain, change in BM Pulm: Denies SOB, WATERS, hemoptysis, wheezing Cards: Denies chest pain, palpitations Skin: Denies Raynaud's, rash, nail changes, photosensitivity, WRAPPING MACHINE HELPER: Denies headaches, weakness, paresthesias, recurrent falls MSK: as per HPI All other systems reviewed and are unremarkable except noted above Physical Exam Vital Signs: Last Vital Signs Pulse 71 07/10/24 08:43 BP 154/120 H 07/10/24 08:43 Pulse Ox 98 07/10/24 08:43 Oxygen Delivery Method Room Air 07/10/24 08:43 BMI result Body Mass Index 30.3 Vital signs reviewed Physical Examination CONSTITUITIONAL Patient alert and cooperative. Well appearing and in no apparent painful distress HEENT Conjunctiva and sclera clear. ?Pupils equal round and reactive to light. ?No lymphadenopathy. ? CHEST/RESPIRATORY SYSTEM Normal respiratory effort and able to speak in complete sentences. ?Clear to auscultation bilaterally. ?No crackles, rales, rhonchi, wheezes heard. CARDIAC SYSTEM Regular rate and rhythm. ?S1 and S2 heard no murmurs. ?Radial pulses intact bilaterally MSK Hands: ?Good batch maker strength bilaterally. No deformities noted. ?No synovitis noted to the MCPs, PIPs or DIPs. ?Mild TTP of the MCPs of both hands Wrists: ?Full range of motion at the wrists without pain. ?No tenderness to palpation or synovitis noted to the wrists. Elbows: Full range of motion without pain. No tenderness, weakness, swelling, increased warmth or erythema. Shoulders: Full range of motion without pain. No tenderness, weakness, swelling, increased warmth or erythema. Hips: Full range of motion without pain. Hip bursa: No tenderness to palpation Knees: ?Full range of motion. ?No tenderness, swelling, increased warmth or erythema.?No effusion or crepitations Ankles: Full range of motion. ?No tenderness, swelling, increased warmth or erythema.? Feet: ?Negative squeeze test. ?No tenderness to palpation or swelling of the MTPs. Tender points:?No tenderness to palpation of the bilateral trapezius, supraspinatus, greater trochanters, anterior costochondral junctions, bilateral gluteal areas, bilateral suboccipital muscle insertions SKIN Skin intact without rashes. Results Reviewed Results Reviewed: Laboratory Tests 01/31/23 07/30/23 08:55 11:24 ESR 6 C-Reactive Protein 0.34 RACHEL Screen POSITIVE A RACHEL Titer 1:80 H Double Strand DNA Ab 8 H 8 H Complement C3 132 Complement C4 41 Assessment & Plan Assessment & Plan (1) SLE (systemic lupus erythematosus related syndrome): Comment: [facility]) Prior history of pos RACHEL, arthralgias, rash, seizures On hydroxychloroquine initially 2009 last eye exam 03/15, 11/14,09/2021, 05/2022 No lupus activity in 2022 Code(s): M32.9 - Systemic lupus erythematosus, unspecified Category: Medical Plan: #SLE Very mild activity with TTP of the MCPs and intermittent rashes Will trial Methotrexate Patient agreeable Plan - Methotrexate 15mg weekly - Folic acid 1mg - Labs: CBC, CMP, ESR, CRP, C3, C4, dsDNA, UA, UPC, hepatitis panel, T spot - RTC 4 months - Labs before visit: CBC, CMP, ESR, CRP, C3, C4, dsDNA, UA, UPC (2) Encounter for methotrexate monitoring: Code(s): Z51.81 - Encounter for therapeutic drug level monitoring; Z79.631 - intermission coordinator (current) use of antimetabolite agent Plan: #Long-term Current Use of Methotrexate Discussed with patient the benefits and risks of methotrexate for managing their rheumatic condition Benefits include reduced pain, reduced mortality, maintenance of remission and reduction of flares Risks include oral ulcers, photosensitivity, hepatotoxicity, hematologic toxicity, pneumonitis, flu-like symptoms (especially day after administration), nodulosis, lymphomas ? Limit alcohol and avoid Bactrim ? Monitoring: ?CBC, BMP, LFTs every 3-4 months and hepatitis serologies as needed Plan I spent 40 minutes reviewing the record and labs, taking a history, examining the patient, discussing the treatment plan and documenting in the medical record Orders: Orders XR DEXA axial skeleton Today M81.0 - Age-related osteoporosis without current pathological fracture RACHEL Reflex Titer and Pattern Today . - Systemic lupus erythematosus, unspecified Anti DNA DS Antibody Today . - Systemic lupus erythematosus, unspecified Lupus Anticoagulant Panel Today . - Systemic lupus erythematosus, unspecified Protein Creatinine Ratio, Ur Today . - Systemic lupus erythematosus, unspecified UA w Microscopic Today . - Systemic lupus erythematosus, unspecified Complete Blood Count Auto Diff Today . - Systemic lupus erythematosus, unspecified Comprehensive Met. Panel Today . - Systemic lupus erythematosus, unspecified Hepatitis A,B,C Profile Today . - Systemic lupus erythematosus, unspecified T Spot TB Today . - Systemic lupus erythematosus, unspecified Complete Blood Count Auto Diff 4 Months . - Systemic lupus erythematosus, unspecified Complement C4 4 Months . - Systemic lupus erythematosus, unspecified Erythrocyte Sedimentation Rate 4 Months . - Systemic lupus erythematosus, unspecified Protein Creatinine Ratio, Ur 4 Months . - Systemic lupus erythematosus, unspecified Sm Sm/INSPECTOR FINAL ASSEMBLY CONVEYOR LINE Antibodies Today . - Systemic lupus erythematosus, unspecified Complement C3 Today . - Systemic lupus erythematosus, unspecified Complement C4 Today . - Systemic lupus erythematosus, unspecified C Reactive Protein Today M3. - Systemic lupus erythematosus, unspecified Erythrocyte Sedimentation Rate Today . - Systemic lupus erythematosus, unspecified Sjogren's Antibodies Today . - Systemic lupus erythematosus, unspecified Comprehensive Met. Panel 4 Months . - Systemic lupus erythematosus, unspecified Complement C3 4 Months . - Systemic lupus erythematosus, unspecified C Reactive Protein 4 Months 2. - Systemic lupus erythematosus, unspecified Hepatitis A,B,C Profile 4 Months . - Systemic lupus erythematosus, unspeci fied T Spot TB 4 Months . - Systemic lupus erythematosus, unspecified UA w Microscopic 4 Months M32.9 - Systemic lupus erythematosus, unspecified Medications: New methotrexate sodium 15 mg (6 x 2.5 mg) PO QWEEK 90 days 78 tabs 1RF M32.9 - Systemic lupus erythematosus, unspecified folic acid 3 mg (3 x 1 mg) PO DAILY 90 days 270 tabs 1RF M32.9 - Systemic lupus erythematosus, unspecified Coding Level of Care Code Est Pt Level 5 (05480) Complex EM visit Add On G2211 Diagnoses SLE (systemic lupus erythematosus related syndrome) M32.9 Encounter for methotrexate monitoring Z51.81; Z79.631
[2024-07-10 08:43] VITALS: BP 154/120; PULSE 71; O2SAT 98; BMI 30.3
== END 2024-07-10 09:38 | disposition home or self-care (01) ==
PROVIDERS: PCP Internal Medicine; Visit Provider Student in an Organized Health Care Education/Training Program
DX: M32.9 Systemic lupus erythematosus, unspecified (principal); Z51.81 Encounter for therapeutic drug level monitoring; Z79.631 Long term (current) use of antimetabolite agent
CPT/HCPCS: 99215; G2211

== ENCOUNTER 2024-07-10 08:26 | Outpatient (REF) | payer OTHER, SELFPAY ==
--- OUTSIDE RECORDS SUMMARY | 2024-07-10 10:18 | XMS_ITS | Clinical Summary ---
Author Organization [facility] Address [address] [place] [address] Care Team Providers Care Supportive Employment Case Manager Name Role Phone Nadege Anderson Primary Care Provider [phone] Allergies Active Allergy Reactions Criticality Noted Date [...] Overview: [facility]) Prior history of pos RACHEL, arthralgias, [...] age to complete this topic Care Teams Supportive Employment Case Manager Relationship Specialty Start Date End Date Nadege Anderson Nallely [address] [place] [id number] PCP - General Internal Medicine 09/25/18
--- OUTSIDE RECORDS SUMMARY | 2024-07-10 10:18 | XMS_ITS | Clinical Summary ---
Author Organization 175 [facility] Address [address] [place] [address] Phone Care Team Providers Care Taper Operator Name Role Phone Lauro Muñoz MD Primary Care Provider [phone] Allergies Active Allergy Reactions Criticality Noted Date [...] always a 10/10. She has tried multiple [id number] pain meds, was prescribed naproxen, has tried gels, heat and ice. She went to physical therapy at [facility] in [place] for about 2 months, was going 2-3 times a week. Last night her pain was so bad she had to sleep on the sofa. She recently was given an injection in the left anterior hip at [facility], I did not help her left [...] (03/28/2024): [facility]) Prior history of pos RACHEL, arthralgias, rash, seizures On hydroxychloroquine initially 2009 last eye exam 03/15, 11/14 Encounters Date Type Department Care Team Description 06/02/2024 1:30 PM EST Office Visit Internal Medicine - [place] 175 [facility] [address] [place] [address] Lauro Muñoz MD MEMO (acute kidney injury) ([facility]) (Primary Dx); 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[facility]); Seizures ([facility]) 05/15/2024 10:59 AM EST - 05/15/2024 11:59 PM EST Hospital Encounter [facility] CT Scan [address] [place] [phone] Epigastric pain; Burping; Decreased appetite; Gastroesophageal reflux disease, unspecified whether esophagitis present; Bloating Discharge Disposition: Home or Self Care 05/07/2024 10:40 AM EST Office Visit Gastroenterology - [place] [address] [phone] Jimmy Diaz PA Epigastric pain (Primary Dx); Burping; Decreased appetite; Gastroesophageal reflux disease, unspecified whether esophagitis present; Bloating; Mastocytosis 05/05/2024 Telephone Gastroenterology - [place] 175 [facility] [address] [phone] Jimmy Diaz PA provider call [...] + Ba.1 (Non-US Trademark COMIRNATY Bivalent) 03/13/2022 [employer] SARS-CoV-2 COVID-19, mRNA, LNP-S, preservative free 02/29/2024,08/26/2021 Pneumococcal polysaccharide 23 valent (Pneumovax 23) 2yo and older 04/18/2019 Tdap Tetanus diptheria acell ular pertussis (Boostrix; Adacel) 7yo and older 11/07/2018 Zoster recombinant (Shingrix) 19yo and older 04/2021,05/27/2020 Surgical History Surgery Date Site/Laterality Comments KNEE SURGERY 2014 Right PROCEDURE: HISTORICAL KNEE SURGERY; COMMENT: 2009 & 2014 for meniscus tears (in [place]) SHOULDER SURGERY 1985 Right PROCEDURE: HISTORICAL SHOULDER SURGERY; COMMENT: 5 surgeries 1985 to 1991 for dislocations, 10 hooks in my shoulder COLONOSCOPY 11/2016 PROCEDURE: HISTORICAL COLONOSCOPY; COMMENT: sister age 39 colon CA, anemia. OTHER SURGICAL HISTORY 05/2017 PROCEDURE: HISTORICAL D&C; COMMENT: in [place] for menorrhagia, no cancer found BREAST BIOPSY PROCEDURE: BX BREAST; PERC NEEDLE CORE W/IMAG GUID OTHER SURGICAL HISTORY 12/11/2018 PROCEDURE: SD ENDOMETRIAL BX W/WO ENDOCERVIX BX W/O DILAT SPX; COMMENT: Dr. Gautam OTHER SURGICAL HISTORY 12/2018 Bilateral PROCEDURE: SD UNLISTED PROCEDURE EYELIDS; COMMENT: for droopy eyelids BREAST LUMPECTOMY 2010 Bilateral PROCEDURE: HISTORICAL BREAST LUMPECTOMY; COMMENT: Breast biopsy negative OTHER SURGICAL HISTORY PROCEDURE: HISTORY OTHER; COMMENT: Cardiac cath x2 TUBAL LIGATION PROCEDURE: HISTORICAL TUBAL LIGATION Medical History Medical History Date Comments Systemic lupus erythematosus ([facility]) 06/10/2018 DX:Systemic lupus erythemato lucero ([facility]) Seizures ([facility]) 06/10/2018 DX:Seizures ( [facility]); COMMENT: 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 [...] DX :CAD (coronary artery disease); COMMENT: s/p DE in 1998 CVA (cerebral vascular accid ent) ([facility]) DX:CVA (cerebral vascular ac cident) ([facility]); COMMENT: CVA in 1996, with residual L [...] multiple sclerosis Colon cancer Mother Other: stroke, [place], dementia Mother Colon cancer Sister 1 Parul she's 52 as of 05/2018 Breast cancer Sister 2 Half sister Leukemia Sister 2 Other: Army Captain 05/2018 Son 1 Jack Other: Silent Herdsman Son 2 Adiel Relation Name Status Comments [...] AM EDT [facility] [address] [phone] Health Maintenance Due Date Last [...] 10:00 AM EST MEMO (acute kidney injury) ([facility]) CT ABDOMEN PELVIS WO CONTRAST Routine 05/15/2024 [...] mmol/L LAB CHEMISTRY METHOD 06/10/2024 9:[address] [facility] Potassium 4.5 3.5 - 5.5 mmol/L LAB CHEMISTRY METHOD 06/10/2024 9:[address] [facility] Chloride 105 96 - 110 mmol/L LAB CHEMISTRY METHOD 06/10/2024 9:[address] [facility] CO2 27 21 - 32 mmol/L LAB CHEMISTRY METHOD 06/10/2024 9:[address] [facility] Anion Gap 6 3 - 11 LAB CHEMISTRY METHOD 06/10/2024 9:[address] [facility] Glucose 95 70 - 100 mg/dL LAB CHEMISTRY METHOD 06/10/2024 9:[address] [facility] BUN 13 5 - 25 mg/dL LAB CHEMISTRY METHOD 06/10/2024 9:[address] [facility] Creatinine 0.91 0.50 - 1.10 [...] [facility] [address] [place] [address], [place] [phone] * CT Abdomen Pelvis wo Contrast (05/15/2024 [...] Signed Date: 05/16/2024 10:17 ET Workstation ID: [id number] Transcribed By: Self Edit Transcribed Date: 05/16/2024 [...] Dictated Date: 05/16/2024 10:02 ET Assigned Physician: Gianlcua Hardy Reviewed and Electronically Signed By: Gianluca Hardy Signed Date: 05/16/2024 10:17 ET Workstation ID: [id number] Transcribed By: Self Edit Transcribed Date: 05/16/2024 10:02 ET Jimmy MCCORMACK IM CT PROCEDURES Final Result * (ABNORMAL) CBC auto differential (05/07/2024 12:00 PM EST) WBC 7.5 4.8 - 10.8 K/mcL LAB HEMETOLOGY METHOD 05/07/2024 2:[address] [facility] RBC 5.30(H) 3.80 - 4.80 M/mcL LAB HEMETOLOGY METHOD 05/07/2024 2:[address] [facility] Hemoglobin 14.4 11.5 - 16.0 g/dL LAB HEMETOLOGY METHOD 05/07/2024 2:[address] [facility] Hematocrit 46.6 35.0 - 47.0 % LAB HEMETOLOGY METHOD 05/07/2024 2:[address] [facility] MCV 87.9 79.0 - 98.0 FL LAB HEMETOLOGY METHOD 05/07/2024 2:[address] [facility] MCH 27.2 27.0 - 32.0 pcg LAB HEMETOLOGY METHOD 05/07/2024 2:[address] [facility] MCHC 30.9(L) 32.0 - 37.0 g/dL LAB HEMETOLOGY METHOD 05/07/2024 2:[address] [facility] RDW 13.2 11.0 - 15.0 % LAB HEMETOLOGY METHOD 05/07/2024 2:[address] [facility] Platelets 262 130 - 400 K/mcL LAB HEMETOLOGY METHOD 05/07/2024 2:[address] [facility] MPV 10.2 7.0 - 11.0 FL LAB HEMETOLOGY METHOD 05/07/2024 2:[address] [facility] NRBC 0.0 <1.0 % LAB HEMETOLOGY METHOD 05/07/2024 2:[address] [facility] NRBC Absolute 0.00 <0.10 K/mcL LAB HEMETOLOGY METHOD 05/07/2024 2:[address] [facility] Neutrophils Relative 65.7 % LAB HEMETOLOGY METHOD 05/07/2024 2:[address] [facility] Lymphocytes Relative 26.7 % LAB HEMETOLOGY METHOD 05/07/2024 2:[address] [facility] Monocytes Relative 5.2 % LAB HEMETOLOGY METHOD 05/07/2024 2:[address] [facility] Eosinophils Relative 1.7 % LAB HEMETOLOGY METHOD 05/07/2024 2:[address] [facility] Basophils Relative 0.4 % LAB HEMETOLOGY METHOD 05/07/2024 2:[address] [facility] Immature Granulocytes Relative 0.3 % LAB HEMETOLOGY METHOD 05/07/2024 2:[address] [facility] Neutrophils Absolute 4.90 1.50 - 7.00 K/mcL LAB HEMETOLOGY METHOD 05/07/2024 2:[address] [facility] Lymphocytes Absolute 1.99 1.00 - 5.00 K/mcL LAB HEMETOLOGY METHOD 05/07/2024 2:[address] [facility] Monocytes Absolute 0.39 0.20 - 1.00 K/mcL LAB HEMETOLOGY METHOD 05/07/2024 2:21 PM EST [facility] Eosinophils Absolute 0.13 0.00 - 0.50 K[facility] LAB HEMETOLOGY METHOD 05/07/2024 2:21 PM EST [facility] Basophils Absolute 0.03 0.00 - 0.20 K/[facility] LAB HEMETOLOGY METHOD 05/07/2024 2:21 PM EST [facility] Immature Granulocytes Absolute 0.02 0.00 - 0.03 K[facility] LAB HEMETOLOGY METHOD 05/07/2024 2:21 PM EST [facility] Blood Venous blood specimen / Unknown Venipuncture / Unknown 05/07/2024 12:00 PM EST 05/07/2024 12:00 PM EST us Jimmy MCCORMACK LAB BLOOD ORDERABLES Final Resu lt [facility] [address] [place] [address], [place] [phone] * C-reactive protein (05/07/2024 12:00 PM EST) [facility] C-Reactive Protein <0.29 <=0.50 mg/dL LAB CHEMISTRY METHOD 05/07/2024 3:12 PM EST [facility] Blood Venous blood specimen / Unknown Venipuncture / Unknown 05/07/2024 12:00 PM EST 05/07/2024 12:00 PM EST us Jimmy MCCORMACK LAB BLOOD ORDERABLES Final Resu lt [facility] [address] [place] [address], [place] [phone] * Lipase (05/07/2024 12:00 PM EST) Pathologist [facility] Lipase 36 13 - 75 unit/L LAB CHEMISTRY METHOD 05/07/2024 3:12 PM EST [facility] Blood Venous blood specimen / Unknown Venipuncture / Unknown 05/07/2024 12:00 PM EST 05/07/2024 12:00 PM EST us Jimmy MCCORMACK LAB BLOOD ORDERABLES Final Resu lt [facility] [address] [place] [address], [place] [phone] * Ferritin (05/07/2024 12:00 PM EST) [facility] Ferritin 171 8 - 252 ng/mL LAB CHEMISTRY METHOD 05/07/2024 3:17 PM EST [facility] Blood Venous blood specimen / Unknown Venipuncture / Unknown 05/07/2024 12:00 PM EST 05/07/2024 12:00 PM EST us Jimmy MCCORMACK LAB BLOOD ORDERABLES Final Resu lt Performing Organization Address City/[facility]/ZIP Co de Phone Number [facility] [address] [place] [address], [place] [phone] * (ABNORMAL) Comprehensive metabolic panel (05/07/2024 12:00 PM EST) [facility] Sodium 137 133 - 145 mmol/L [...] 11 LAB CHEMISTRY METHOD 05/07/2024 3:[address] [facility] Glucose 87 70 - 100 mg/dL LAB CHEMISTRY METHOD 05/07/2024 3:[address] [facility] BUN 16 5 - 25 mg/dL LAB CHEMISTRY METHOD 05/07/2024 3:[address] [facility] Creatinine 1.29(H) 0.50 - 1.10 mg/dL LAB CHEMISTRY METHOD 05/07/2024 3:[address] [facility] eGFR 49(L) >=60 mL/min/1. 73m2 LAB CHEMISTRY METHOD 05/07/2024 3:[address] [facility] Comment:Calculation based on the??Chronic Kidney Disease Epidemiology Collaboration (CKD-EPI) equation refit??without adjustment for race. BUN/Creatinine Ratio 12.4 LAB CHEMISTRY METHOD 05/07/2024 3:[address] [facility] Calcium 9.9 8.5 - 10.5 mg/dL LAB CHEMISTRY METHOD 05/07/2024 3:[address] [facility] AST (SGOT) 19 10 - 42 unit/L LAB CHEMISTRY METHOD 05/07/2024 3:[address] [facility] ALT (SGPT) 48 10 - 60 unit/L LAB CHEMISTRY METHOD 05/07/2024 3:[address] [facility] Alkaline Phosphatase 97 42 - 121 unit/L LAB CHEMISTRY METHOD 05/07/2024 3:[address] [facility] Total Protein 7.8 6.0 - 8.0 g/dL LAB CHEMISTRY METHOD 05/07/2024 3:[address] [facility] Albumin 4.4 3.2 - 5.0 g/dL LAB CHEMISTRY METHOD 05/07/2024 3:[address] [facility] Total Bilirubin 0.6 0.0 - 1.4 mg/dL LAB CHEMISTRY METHOD 05/07/2024 3:[address] [facility] Blood Venous blood specimen / Unknown Venipuncture / Unknown 05/07/2024 12:00 PM EST 05/07/2024 12:00 PM EST Jimmy MCCORMACK LAB BLOOD ORDERABLES Final Resu lt [facility] [address] [place] [address], [place] [phone] * Depression Screening (03/04/2024) Depression Screening Abstracted Historical Provider HEALTH MAINTENANCE Final Result * (ABNORMAL) Lipid panel (03/04/2024) Pathologist [facility] LDL/HDL Ratio 4 0 - 4 Triglycerides [...] Most Recently Relevant to Health Maintenance Insurance [facility] MEDIC[facility] Member Subscriber Plan / Payer (Ef fective 2018-Present) Name:Destinee Mcdermott Relation to Subscriber:Self Name:Destinee Mcdermott Payer ID:[id number] Group ID:[id number] Type:Not on file Address: [place] [address] [place] [address] Care Teams Taper Operator Relationship Specialty Start Date End Date Lauro Muñoz MD [address] [place] [address] PCP - General 08/29/22
[2024-07-10 10:24] LABS: MANUAL DIFF FLAG NO
[2024-07-10 10:48] LABS: Basophils Percent Auto 0.6 % (0-2); Eosinophils Absolute Auto 0.3 X10*3/uL (0.0-0.4); Eosinophils Percent Auto 5.5 % (0-4); Hematocrit 39.6 % (37.0-47.0); Hemoglobin 12.7 g/dl (12.0-16.0); Imm Gran Abs Auto 0.01 X10*3/uL (0.00-0.03); Imm Gran Pct Auto 0.2 % (0.0-0.4); Lymphocytes Absolute Auto 1.6 X10*3/uL (1.2-4.9); Lymphocytes Percent Auto 30.9 % (20-40); Mean Corpuscular HGB Conc 32.1 g/dl (31.0-35.0); Mean Corpuscular Hemoglobin 27.5 pg (27.0-33.0); Mean Corpuscular Volume 85.7 fL (80.0-98.0); Mean Platelet Volume 10.4 fL (9.4-12.3); Monocytes Absolute Auto 0.4 X10*3/uL (0.1-1.2); Neutrophils Absolute Auto 2.9 x10*3/uL (2.0-8.3); Neutrophils Percent Auto 55.8 % (45-73); Platelet Count 230 X10*3/uL (160-400); Red Blood Count 4.62 X10*6/uL (4.20-5.50); Red Cell Distribution Width 13.3 % (11.0-16.0); White Blood Count 5.1 X10*3/uL (4.8-10.8)
[2024-07-10 11:03] LABS: Appearance Urine Clear; Color Urine Yellow; Glucose Urine UA Negative (Negative); Leukocyte Esterase Urine Negative (Negative); Nitrite Urine Negative (Negative); PH 5.5 (5.0-9.0); Specific Gravity - Urine <= 1.005 (1.005-1.025); Urine Blood Negative (Negative); Urine Ketones Negative (Negative); Urine Protein Negative (Neg-Trace)
[2024-07-10 11:05] LABS: Bacteria Urine None Seen (None Seen); Hyaline Casts Urine 0-2 /LPF (0-2); RBC Urine 0-2 /HPF (0-2); Squamous Epithelial Cell Urine 0-2 /HPF (0-2); WBC Urine 0-5 /HPF (0-5)
[2024-07-10 11:13] LABS: Alanine Aminotransferase 31 U/L (0-31); Albumin Level 4.4 g/dL (3.5-5.0); Alkaline Phosphatase 76 U/L (39-117); Anion Gap 13 (12-20); Aspartate Amino Transferase 33 U/L (5-31); Bilirubin Total 0.4 mg/dL (0.0-1.0); Blood Urea Nitrogen 10 mg/dL (9-16); C Reactive Protein 0.22 mg/dL (< or = 0.50); Calcium 9.4 mg/dL (8.4-10.2); Carbon Dioxide 25 mmol/L (22-29); Chloride 108 mmol/L (96-108); Estimated Glomerular Filt Rate > 60; Glucose Random 88 mg/dL (60-115); Potassium 4.2 mmol/L (3.3-5.1); Sodium 142 mmol/L (135-145); Total Protein 7.6 g/dL (6.5-8.0)
[2024-07-10 11:27] LABS: Erythrocyte Sedimentation Rate 7 MM/HR (0-20)
[2024-07-10 11:35] LABS: HBS Num1 0.18 mIU/mL (0-7.99); HBc Num1 0.12 S/CO (0.00-0.79); HBsAGNum1 0.28 S/CO (0.00-0.99); Hepatitis A Antibody IgM 0.18 Index (0-0.79); Hepatitis B Core Antibody Nonreactive (Nonreactive); Hepatitis B Surface Antigen Negative (Negative); ~HepC Num1 0.06 S/CO (0.00-0.79); ~Hepatitis A Antibody IgM Nonreactive (Nonreactive); ~Hepatitis B Surface Antibody NONREACTIVE (Nonreactive); ~Hepatitis C Antibody Nonreactive (Nonreactive)
[2024-07-10 12:21] LABS: Creatinine Urine 45.14 mg/dL; Total Protein Urine Random < 7 mg/dL (<12)
[2024-07-11 12:29] LABS: Complement C3 131 mg/dL (83-193)
[2024-07-13 08:02] LABS: TS Negative Control Passed; TS Panel A 0; TS Panel B 0; TS Positive Control Passed; TSpotTB Negative (Negative)
[2024-07-14 21:34] LABS: Anti DNA DS Antibody 7 IU/mL; Antibody to SS-A Antigen <1.0 NEG AI (<1.0 NEG); Antibody to SS-B Antigen <1.0 NEG AI (<1.0 NEG); SM/Ribonucleoprotein Ab <1.0 NEG AI (<1.0 NEG); Smith Protein <1.0 NEG AI (<1.0 NEG)
[2024-07-15 21:09] LABS: PTT (LAC) Screen 31 sec (<=40)
[2024-07-16 11:19] LABS: Anti Nuclear Antibody Screen POSITIVE (NEGATIVE)
== END 2024-07-10 08:27 | disposition home or self-care (01) ==
LOC: HO.LAB 08:26
PROVIDERS: PCP Internal Medicine; Visit Provider Student in an Organized Health Care Education/Training Program
DX: M32.9 Systemic lupus erythematosus, unspecified (principal); Z51.81 Encounter for therapeutic drug level monitoring; Z79.631 Long term (current) use of antimetabolite agent
CPT/HCPCS: 36415; 80053; 81001; 82570; 84156; 85025; 85597; 85598; 85613; 85652; 85730; 86038; 86039; 86140; 86160; 86225; 86235; 86481; 86704; 86706; 86709; 86803; 87340; 99212

== ENCOUNTER 2024-07-29 09:08 | Outpatient (AMB) | payer OTHER, SELFPAY ==
--- NOTE | 2024-07-29 09:22 | MHC.OFFVIS ---
Vital Signs 07/29/24 09:23 Height 5 ft 5 in Weight 187 lb BMI 31.1 BP 130/82 Blood Pressure Location Lt brachial Position Sitting Pulse 80 Pulse Source Pulse Oximeter Pulse Oximetry (%) 98 Oxygen Delivery Method Room Air Intake Visit Reasons: Follow up Vertigo Intake Note: Patient presents follow up vertigo/Seizure. EEG in chart Communications Department Head Required: No Accompanied by: Self / Same As Patient Allergies codeine Allergy (Unknown, Verified 07/29/24 09:26) Unknown hydroxyzine [From Vistaril] Allergy (Unknown, Verified 07/29/24 09:26) Unknown piperacillin [From Zosyn] Allergy (Unknown, Verified 07/29/24 09:26) Unknown pregabalin [From Lyrica] Allergy (Unknown, Verified 07/29/24 09:26) Unknown shellfish derived Allergy (Unknown, Verified 07/29/24 09:26) UNKNOWN tazobactam [From Zosyn] Allergy (Unknown, Verified 07/29/24 09:26) Unknown lisinopril Adverse Reaction (Intermediate, Verified 07/29/24 09:26) Cough BEES Allergy (Unknown, Uncoded 01/18/24 08:27) Unknown BETADYNE Allergy (Unknown, Uncoded 01/18/24 08:27) UNKNOWN GADAVIST Allergy (Unknown, Uncoded 01/18/24 08:27) Unknown HYDROXYZINE Allergy (Unknown, Uncoded 01/18/24 08:27) UNKNOWN iv CONTRAST Allergy (Unknown, Uncoded 01/18/24 08:27) Unknown cortisone Adverse Reaction (Severe, Uncoded 01/18/24 08:27) hair loss Medication List - Last Reconciled 07/29/24 by PEDRO Wen acetaminophen ER (Tylenol 8 Hour) 650 mg PO Q12H PRN albuterol sulfate 90 mcg/actuation 2 puffs inhalation Q6H PRN aspirin (Adult Low Dose Aspirin) 81 mg PO DAILY atorvastatin 20 mg PO DAILY bepotastine besilate 1.5% 1 drp ophthalmic (eye) BID calcium carbonate-vitamin D3 500 mg-10 mcg (400 unit) 1 tab PO BID diclofenac sodium 3% 1 appl topical BID epinephrine 0.3 mg IM Q4H PRN fexofenadine (Allergy Relief (fexofenadine)) 0 mg PO fluticasone propionate 50 mcg/actuation 2 sprays intranasal DAILY folic acid 3 mg (3 x 1 mg) PO DAILY 90 days gabapentin 100 mg PO BEDTIME hydrochlorothiazide 12.5 mg PO DAILY levetiracetam (Keppra) 1 tab bid x's 2 weeks, then 2 tabs bid orally 2 times a day; 30 days levothyroxine 50 mcg PO DAILY lisinopril 10 mg PO DAILY loratadine 10 mg PO DAILY methotrexate sodium 15 mg (6 x 2.5 mg) PO QWEEK 90 days nitroglycerin (Nitrostat) 0.4 mg sublingual Q5M PRN ondansetron HCl 4 mg PO Q8H PRN oxcarbazepine (Trileptal) 300 mg PO DAILY pantoprazole 40 mg PO BID polyethylene glycol 3350 17 grams PO DAILY pyridoxine (vitamin B6) 50 mg PO BID 30 days sertraline 50 mg PO DAILY HPI Comments Details: The patient is a 59-year-old female presenting with a follow-up for seizure disorder and new involuntary facial movements. History of seizure disorder managed with Keppra, with inconsistent adherence. States she has recently started putting an alarm on her phone to help her remember to take her doses. Denies interval convulsive seizure activity. She is unable to quantify the left facial spasm frequency at this point. Interval ambulatory EEG was unremarkable. Patient states she will be undergoing a follow-up right shoulder surgery in September. She states she has had multiple right shoulder surgeries in the past. She has had seizure activity following surgery before. Involuntary facial movements, involving left side of mouth. When increased and more frequent results in left facial/cheek/jaw muscle tension, spasms, and pain, which trigger left parietal headache and left-sided neck and upper trap pain. Has also noticed decreased hearing from the left ear. The headache lasts an hour, occurs every few days. The headache is not associated with photophobia, phonophobia, nausea or vomiting. She feels the left facial movements are stress-related, exacerbated by personal stress. She feels facial movements are distinct from the previously described left cheek pulling sensation. She states these episodes did not occur during her last ambulatory EEG, which was unremarkable. She denies history of known neuroleptic use, however has had short psychiatric hospitalization x2 for depression and anorexia nervosa- once in adolescence and once about 30 years ago. Denies recent dental work. She does use a nocturnal mouth guard to prevent dental injury from seizure activity, which has occurred in the past. She states she has a history of known intracranial vasculitis. Her last MRI/MRA was many years ago. Her mother has vascular dementia. 07/10/2024 ESR 7, CBC WNL, CMP- WNL. 07/10/2024 the RACHEL positive 1:80, Nuclear, Dense Fine Speckled. Double strand DNA Ab- 7 iu/ml high. Recently evaluated for high tryptase levels, diagnosed with hereditary tryptasemia by cnc mill programmer at [facility]- also notes she needs to establish care with a new local cnc mill programmer Dr. Melendez as her previous cnc mill programmer no longer takes her insurance. Review of Systems - Neurological: Reports involuntary cheek movements, decreased hearing in the left ear. - Musculoskeletal: Reports past right shoulder surgeries and ongoing tremor in the right upper extremity. - Psychiatric: Reports stress, insomnia, no recent psychiatric hospitalizations. Initial HPI 01/18/2024: Right-handed 58-yr-old female presents for neurological evaluation of: dizziness and seizures. Pt's previous neurologist Dr Chamberlain has retired. PMH includes SLE (past tx plaquenil d/c'd d/t vision changes)- f/b [facility], fibromyalgia, OA, h/o NSTEMI, CVA, HTN, HLD, GERD, hypothyroidism, mast cell d/o and mx allergies- f/b Dr Jimenez, asthma, chronic constipation, tremor, anxiety and depression. MARY, Right CTS- f/b ortho. Pt reports that in 2014 in [place], she started having unprovoked convulsive seizures a/w LOC, loss of bladder control. Her typical seizure has aura of stomach upset and feeling chills, f/b blinking or going blank, f/b head starts shaking, eyes roll back, LOC, collapses, tonic/clonic convulsions, and as she comes out of it she loses bladder control. Has postictal fatigue and jaw pain x's 3 days. Denies intraictal tongue biting. Typically lasts- 2.5-3 minutes, longest attack was 6 minutes and her needed to call 911. as She was evaluated by neuro. Had positive EEG and states work-up showed an intracerebral vascular malformation . She was started on AED- low-dose Keppra. She continued to have seizures and sudden episodes of LOC, and Keppra was increased to 1500mg bid and eventually Trileptal was added which was changed to Aptiom 1,200mg qd as the Trileptal caused drowsiness and agitation. The Aptiom was much better tolerated, but stopped d/t the cost. After moving to [facility], Dr Diez restarted the Trileptal but she never took this. On Keppra, she had just mild breakthrough seizure activity- the blinking episodes. She tries to manage her stress, but she cannot stop a seizure after onset. She stopped her Keppra a few months ago, as she was worried about buttermilk drier operator cost. Off Keppra, has been having episodes of left facial/cheek pulling, has bitten the inside of her cheek. She believes she has nocturnal seizures, she wakes up w/ urinary incontinence and jaw pain. She states she typically does not drive, but states she did drive herself to today's appt (lives up the [address]). Pt states she was born at 7 months, required ICU stay. Believes she met early developmental milestones at appropriate ages. 1st mild CVA - in 1996- states was caused by a severe headache- states dropped to the ground, took 2 ASA went to bed and when she woke up her lower face was twisted, w/ residual effect of left sided decreased sensation and strength mostly arm and face- sometimes the leg. She reports 2 other CVAs in 2008 and 2012- had episodes of slurred speech. Denies family h/o seizure. Recently, she was having room spinning vertigo a/w nausea triggered by movement, which is better vestibular therapy. She has RUE tremor x's 5 years. Started as a postural tremor when arm was elevated, but now comes with arm raised lower and when trying to do activities, such as making coffee. Head CT, 06/2023, tiny left basal ganglionic calcification, developmental variant. otherwise unremarkabole exam. Last EEG was > 5 yrs ago. Last EMG was > 5 yrs ago. [facility] Medical History (Updated 07/29/24 @ 14:09 by PEDRO Wen) Mast cell disorder Surgical History H/O breast biopsy S/P cardiac cath Hx of tubal ligation Hx of right knee surgery H/O shoulder surgery Family History Mother Hypertension Heart disease Dementia High cholesterol Father Hypertension High cholesterol Social History Household Members: Spouse Housing: House Are you a primary hearing care practitioner to a significant other at home: No Do you presently have visiting nurse or other home services: No 75 years or older and lives alone: No Alcohol intake: never Patient Tobacco Use Status: Never used Tobacco e-Cigarette/Vaping Use: Never Used service: No Current occupational status: disabled Physical Exam Vital Signs: Last Vital Signs Pulse 80 07/29/24 09:23 BP 130/82 07/29/24 09:23 Pulse Ox 98 07/29/24 09:23 Oxygen Delivery Method Room Air 07/29/24 09:23 BMI result Body Mass Index 31.1 Const General: cooperative and no acute distress Orientation/consciousness: patient oriented x3 HEENT Head: Yes normocephalic Resp Effort & Inspection: normal respiratory effort and able to speak in complete sentences Neuro Other: - Appearance: Engages appropriately, adequately groomed. - Mood/Affect: Reports stress, exhibits involuntary facial movements. - Cognition: Follows conversation well, oriented. - Thought Process: Coherent, no obvious thought disorder. Intermittent mild left cheek pulling movement. Mild facial asymmetry with a lower left eyebrow, right cheek slightly larger, symmetric smile and frown. No eye flutter when eyes closed. RUE postural tremor. No rest tremor. Mild RUE tightness. FFM intact. Foot taps slightly decreased fluidity on left Bilateral posterior cervical tightness. Cervical ROM: mildly limited Antalgic gait with cane. General: patient oriented x3 and deep tendon reflexes 2+ bilaterally Motor exam (neuro): 5/5 motor strength present throughout Psych Appearance: grossly normal Mental Status: mental status grossly normal Speech and movement: Clear speech present Affect: normal affect Assessment & Plan Assessment & Plan (1) Seizure disorder: Code(s): G40.909 - Epilepsy, unspecified, not intractable, without status epilepticus Category: Medical (2) Abnormal involuntary movement: Comment: Left facial involuntary movements, which are bothersome to patient. When more severe can trigger left jaw pain and left sided headache and left neck pain. Code(s): R25.9 - Unspecified abnormal involuntary movements Category: Medical (3) Hereditary alpha tryptasemia: Comment: Automatic Lathe Tender providers: Dr Jovany Garcia at [facility] phone- [phone] Dr Melendez- new local cnc mill programmer Bebe Hopkins- previous local cnc mill programmer Code(s): D89.44 - Hereditary alpha tryptasemia Category: Medical Plan Plan For previous EEG which was unremarkable- however patient did not have the new bothersome left facial movement at that time. Investigate involuntary facial movements and tremor. Conduct sleep-deprived EEG, brain MRI with/without contrast, and brain MRA without contrast. Patient has had breast MRI with and without contrast in 2023 without allergic response- listed contrast allergy is to CT contrast. Reviewed recent labs for systemic causes-other than positive RACHEL/lupus antibody titer consistent with known diagnosis, my work does not show underlying etiologies.. Continue consistent Keppra dosage. Discuss stress management. Monitor left hearing symptoms- consider audiologically assessment upon review of workup. Follow up with reassessment post-diagnostics. Discussion Notes I discussed with the patient her current symptoms and potential neurological origins, including vasculitic changes and intracranial neurogenic etiologies. We reviewed diagnostic steps, emphasizing the need for a sleep-deprived EEG to correlate with current symptoms and a brain MRI to assess vasculitis or cranial nerve issues. I explained the risks and benefits of these diagnostic tests and the importance of consistent medication adherence. Stress management strategies were suggested due to its role in symptom exacerbation. I also informed her about the potential link between historical medications and current involuntary movements. Follow-up arrangements were confirmed, along with contact protocols for healthcare collaboration and surgical clearances. Patient was informed and verbally consented to the use of an ambient scribe for clinic note documentation during this visit. Patient Instructions - Continue taking Keppra as prescribed; continue setting medication reminders. - Monitor and manage stress levels. - Await scheduling of EEG and MRI/MRA; attend appointments as scheduled. - Follow-up with Rheumatology and allergy/immunology as scheduled. - Report any changes or worsening of symptoms to our office promptly. - Follow through with planned follow-up appointments and testing. - If experiencing severe symptoms or medical emergencies, seek immediate care. Orders: Orders MR angio head wo con Today G40.909 - Epilepsy, unspecified, not intractable, without status epilepticus, M32.9 - Systemic lupus erythematosus, unspecified, R25.9 - Unspecified abnormal involuntary movements, R51.9 - Headache, unspecified EEG awake and asleep Today G40.909 - Epilepsy, unspecified, not intractable, without status epilepticus, R25.9 - Unspecified abnormal involuntary movements MR head/brain wo/w con Today G40.909 - Epilepsy, unspecified, not intractable, without status epilepticus, M32.9 - Systemic lupus erythematosus, unspecified, R25.9 - Unspecified abnormal involuntary movements, R51.9 - Headache, unspecified Coding Level of Care Code Est Pt Level 4 (52958) Complex EM visit Add On G2211 Diagnoses Seizure disorder G40.909 Abnormal involuntary movement R25.9 Hereditary alpha tryptasemia D89.44
[2024-07-29 09:23] VITALS: BP 130/82; PULSE 80; O2SAT 98; BMI 31.1
--- OUTSIDE RECORDS SUMMARY | 2024-07-29 10:03 | XMS_ITS | Clinical Summary ---
Author Organization 175 [facility] Address [address] [place] [address] Phone Care Team Providers Care Statement Request Clerk Name Role Phone Lauro Muñoz MD Primary Care Provider [phone] Allergies Active Allergy Reactions Criticality Noted Date [...] mouth daily for 360 days. 01/11/20 24 025 Active atorvastatin (LIPITOR) 40 mg tablet TAKE 1 TABLET BY MOUTH DAILY 03/13/20 24 Active UNABLE TO FIND Calcium Carb-Cholecalci ferol 500-10 MG-MCG TAKE 1 TABLET BY MOUTH TWICE DAILY. 12/15/19 24 Active ketotifen (ZADITOR) 0.025 % ophthalmic solution 10/13/19 23 Active hydroCHLOROthiazid e 12.5 mg tablet Take 1 Tablet by mouth daily for 360 days. 09/28/19 24 025 Active meclizine (ANTIVERT) 25 mg tablet TAKE [...] - Nebulization 75 mL 07/10/19 25 Active incontinence pad, liner, disp padIndications:Uri nary incontinence, unspecified type 1 each 1 (one) time each day. 100 each 07/17/19 25 Active incontinence pad, liner, disp pad 1 Each by Does not apply route daily. 06/19/19 24 025 Discontin ued(Reord er) albuterol 2.5 mg /3 mL (0.083 %) [...] always a 10/10. She has tried multiple qmxg-jiq-ikwvyyx pain meds, was prescribed naproxen, has tried gels, heat and ice. She went to physical therapy at [facility] in [place] for about 2 months, was going 2-3 times a week. Last night her pain was so bad she had to sleep on the sofa. She recently was given an injection in the left anterior hip at [facility], I did not help her left buttock [...] (03/28/2024): [facility]) Prior history of pos RACHEL, arthralgias, rash, seizures On hydroxychloroquine initially 2009 last eye exam 03/15, 11/14 Encounters Date Type Department Care Team Description 07/17/2024 Telephone Internal Medicine [address] [phone] Lauro Muñoz MD Fitting for DME 07/10/2024 Telephone Internal Medicine [address] [phone] Lauro Muñoz MD DME 06/02/2024 1:30 PM EST Office Visit Internal Medicine [address] [phone] Lauro Muñoz MD MEMO (acute kidney injury) (CMS/HCC) (Primary Dx); 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CMS/HCC); Seizures (CMS/HCC) 05/15/2024 10:59 AM EST - 05/15/2024 11:59 PM EST Hospital Encounter [facility] CT Scan [address] [place] [phone] Epigastric pain; Burping; Decreased appetite; Gastroesophageal reflux disease, unspecified whether esophagitis present; Bloating Discharge Disposition: Home or Self Care 05/07/2024 10:40 AM EST Office Visit Gastroenterology [address] [phone] Jimmy Diaz PA Epigastric pain (Primary Dx); Burping; Decreased appetite; Gastroesophageal reflux disease, unspecified whether esophagitis present; Bloating; Mastocytosis 05/05/2024 Telephone Gastroenterology [address] [phone] Jimmy Diaz PA provider call back from [...] Bivalent, Or iginal + Ba.1 (Non-US Trademark [place]IRESKY Bivalent) 03/13/2022 Pfizer SARS-CoV-2 COVID-19, mRNA, LNP-S, preservative free 02/29/2024,08/26/2021 Pneumococcal polysaccharide 23 valent (Pneumovax 23) 2yo and older 04/18/2019 Tdap Tetanus diptheria acell ular pertussis (Boostrix; Adacel) 7yo and older 11/07/2018 Zoster recombinant (Shingrix) 19yo and older 04/2021,05/27/2020 Surgical History Surgery Date Site/Laterality Comments KNEE SURGERY 2014 Right PROCEDURE: HISTORICAL KNEE SURGERY; COMMENT: 2009 & 2014 for meniscus tears (in [place]) SHOULDER SURGERY 1985 Right PROCEDURE: HISTORICAL SHOULDER SURGERY; COMMENT: 5 surgeries 1985 to 1991 for dislocations, 10 hooks in my shoulder COLONOSCOPY 11/2016 PROCEDURE: HISTORICAL COLONOSCOPY; COMMENT: sister age 39 colon CA, anemia. OTHER SURGICAL HISTORY 05/2017 PROCEDURE: HISTORICAL D&C; COMMENT: in [place] for menorrhagia, no cancer found BREAST BIOPSY PROCEDURE: BX BREAST; PERC NEEDLE CORE W/IMAG GUID OTHER SURGICAL HISTORY 12/11/2018 PROCEDURE: NV ENDOMETRIAL BX W/WO ENDOCERVIX BX W/O DILAT SPX; COMMENT: Dr. 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 TIA in 1998 Lung nodules DX:Lung nodules Depression DX:Depression Asthma DX:Asthma Anemia DX:Anemia Acute systemic lupus erythem atosus ([facility]) DX:Acute systemic lupus eryt hematosus ([facility]) Atypical chest pain DX:Atypical chest pain Epigastric [...] multiple sclerosis Colon cancer Mother Other: stroke, NV, dementia Mother Colon cancer Sister 1 Parul she's 52 as of 05/2018 Breast cancer Sister 2 Half sister Leukemia Sister 2 Other: Army Captain 05/2018 Son 1 Jack Other: [employer] special forces Son 2 Adiel Relation Name Status Comments Aunt Alive Father Alive Mother Alive Sister 1 Parul Alive Sister 2 Alive Son 1 Jack Alive Son 2 Adiel Alive Social History Tobacco Use Types Packs/Day [...] Care Team (Late st Contact Info) Description 09/08/2024 12:00 PM EDT Consult Internal Medicine - [place] [address] [phone] Lauro Muñoz MD [address] [address] 01/27/2025 9:45 AM EDT Appointment [facility] [address] [place] [phone] Health Maintenance Due Date Last Done Comments [...] Health Screening 05/06/2022 Influenza Vaccine (#1) 2024 2, 03/01/2022, 03/15/2021, Additional history exists COVID-19 Vaccine ( season) 2024 02/29/2024, 03/05/2023, 08/26/2021, Additional history exists Breast Cancer Screening 01/31/2025 02/01/20 23, 01/17/2023, 12/27/2022, Additional history exists Depression Screening 03/04/2025 03/04/2024 Hypertension/CHF/CAD Annual BMP Blood Test 06/10/2025 06/10/2024, 05/07/2024, 03/04/2024, Additional history exists Cervical Cancer Screening: Pap Smear 11/07/2025 11/07/2022 Colorectal Cancer Screening: Colonoscopy 04/07/2026 04/07/2021 DTaP,Tdap,and Td Vaccines (3 - Td or Tdap) 11/07/2028 11/07/2018, 04/04/2013 Cholesterol Screening (Lipid Panel) 03/04/2029 03/04/2024, 03/04/2024 Hepatitis C Screening Completed 03/06/2019 Zoster Vaccines [...] 10:00 AM EST MEMO (acute kidney injury) (CMS/HCC) CT ABDOMEN PELVIS WO CONTRAST Routine 05/15/2024 [...] reflux disease, unspecified whether esophagitis present Bloating HM DEPRESSION SCREENING Routine 03/04/2024 LIPID PANEL Routine 03/04/2024 DX MAMMO INCL CAD UNI Routine 01/31/2023 1:18 PM EDT Other abnormal and inconclusive findings on diagnostic imaging of breast HM PAP SMEAR Routine 11/07/2022 HM COLONOSCOPY Routine 04/07/2021 HM HEPATITIS C SCREENING Routine 03/06/2019 from Last 3 Months or Most Recently Relevant to Health Maintenance Results * Basic metabolic panel (06/10/2024 10:00 AM EST) Sodium 138 133 - 145 mmol/L LAB CHEMISTRY METHOD 06/10/2024 9:47 PM EST [facility] Potassium 4.5 3.5 - 5.5 mmol/L LAB CHEMISTRY METHOD 06/10/2024 9:47 PM [facility] Chloride 105 96 - 110 mmol/L LAB CHEMISTRY METHOD 06/10/2024 9:47 PM [facility] CO2 27 21 - 32 mmol/L LAB CHEMISTRY METHOD 06/10/2024 9:47 PM [facility] Anion Gap 6 3 - 11 LAB CHEMISTRY METHOD 06/10/2024 9:47 PM [facility] Glucose 95 70 - 100 mg/dL LAB CHEMISTRY METHOD 06/10/2024 9:47 PM [facility] BUN 13 5 - 25 mg/dL LAB CHEMISTRY METHOD 06/10/2024 9:47 PM [facility] Creatinine 0.91 0.50 - 1.10 mg/dL LAB CHEMISTRY METHOD 06/10/2024 9:47 PM [facility] eGFR 74 >=60 mL/min/1. 73m2 LAB CHEMISTRY METHOD 06/10/2024 9:47 PM [facility] Comment:Calculation based on the??Chronic Kidney Disease Epidemiology Collaboration (CKD-EPI) equation refit??without adjustment for race. BUN/Creatinine Ratio 14.3 LAB CHEMISTRY METHOD 06/10/2024 9:47 PM [facility] Calcium 9.3 8.5 - 10.5 mg/dL LAB CHEMISTRY METHOD 06/10/2024 9:47 PM [facility] Blood Venous blood specimen / Unknown Venipuncture / Unknown 06/10/2024 10:00 AM EST 06/10/2024 10:00 AM EST us Lauro Muñoz MD LAB BLOOD ORDERABLES Final Resul t [facility] [address] [place] [address], * CT Abdomen Pelvis wo Contrast (05/15/2024 [...] Signed Date: 05/16/2024 10:17 ET Workstation ID: [id number] Transcribed By: Self Edit Transcribed Date: 05/16/2024 [...] Signed Date: 05/16/2024 10:17 ET Workstation ID: [id number] Transcribed By: Self Edit Transcribed Date: 05/16/2024 10:02 ET Jimmy MCCORMACK [facility] PROCEDURES Final Result * (ABNORMAL) CBC auto differential (05/07/2024 12:00 PM EST) WBC 7.5 4.8 - 10.8 K/mcL LAB HEMETOLOGY METHOD 05/07/2024 2:21 PM EST [facility] RBC 5.30(H) 3.80 - 4.80 M/mcL LAB HEMETOLOGY METHOD 05/07/2024 2:21 PM [facility] Hemoglobin 14.4 11.5 - 16.0 g/dL LAB HEMETOLOGY METHOD 05/07/2024 2:21 PM [facility] Hematocrit 46.6 35.0 - 47.0 % LAB HEMETOLOGY METHOD 05/07/2024 2:21 PM [facility] MCV 87.9 79.0 - 98.0 FL LAB HEMETOLOGY METHOD 05/07/2024 2:21 PM [facility] MCH 27.2 27.0 - 32.0 pcg LAB HEMETOLOGY METHOD 05/07/2024 2:21 PM [facility] MCHC 30.9(L) 32.0 - 37.0 g/dL LAB HEMETOLOGY METHOD 05/07/2024 2:21 PM [facility] RDW 13.2 11.0 - 15.0 % LAB HEMETOLOGY METHOD 05/07/2024 2:21 PM [facility] Platelets 262 130 - 400 K/mcL LAB HEMETOLOGY METHOD 05/07/2024 2:21 PM [facility] MPV 10.2 7.0 - 11.0 FL LAB HEMETOLOGY METHOD 05/07/2024 2:21 PM [facility] NRBC 0.0 <1.0 % LAB HEMETOLOGY METHOD 05/07/2024 2:21 PM [facility] NRBC Absolute 0.00 <0.10 K/mcL LAB HEMETOLOGY METHOD 05/07/2024 2:21 PM [facility] Neutrophils Relative 65.7 % LAB HEMETOLOGY METHOD 05/07/2024 2:21 PM [facility] Lymphocytes Relative 26.7 % LAB HEMETOLOGY METHOD 05/07/2024 2:21 PM [facility] Monocytes Relative 5.2 % LAB HEMETOLOGY METHOD 05/07/2024 2:21 PM EST [facility] Eosinophils Relative 1.7 % LAB HEMETOLOGY METHOD 05/07/2024 2:21 PM [facility] Basophils Relative 0.4 % LAB HEMETOLOGY METHOD 05/07/2024 2:21 PM [facility] Immature Granulocytes Relative 0.3 % LAB HEMETOLOGY METHOD 05/07/2024 2:21 PM EST [facility] Neutrophils Absolute 4.90 1.50 - 7.00 K/mcL LAB HEMETOLOGY METHOD 05/07/2024 2:21 PM [facility] Lymphocytes Absolute 1.99 1.00 - 5.00 K/mcL LAB HEMETOLOGY METHOD 05/07/2024 2:21 PM [facility] Monocytes Absolute 0.39 0.20 - 1.00 K/mcL LAB HEMETOLOGY METHOD 05/07/2024 2:21 PM EST [facility] Eosinophils Absolute 0.13 0.00 - 0.50 K/mcL LAB HEMETOLOGY METHOD 05/07/2024 2:21 PM EST [facility] Basophils Absolute 0.03 0.00 - 0.20 K/mcL LAB HEMETOLOGY METHOD 05/07/2024 2:21 PM [facility] Immature Granulocytes Absolute 0.02 0.00 - 0.03 K/mcL LAB HEMETOLOGY METHOD 05/07/2024 2:21 PM EST [facility] Blood Venous blood specimen / Unknown Venipuncture / Unknown 05/07/2024 12:00 PM EST 05/07/2024 12:00 PM EST us Jimmy MCCORMACK LAB BLOOD ORDERABLES Final Resu lt [facility] [address] [place] [address], [place] [phone] * C-reactive protein (05/07/2024 12:00 PM EST) C-Reactive Protein <0.29 <=0.50 mg/dL LAB CHEMISTRY METHOD 05/07/2024 3:12 PM EST [facility] Blood Venous blood specimen / Unknown Venipuncture / Unknown 05/07/2024 12:00 PM EST 05/07/2024 12:00 PM EST Jimmygelacio MCCORMACK LAB BLOOD ORDERABLES Final Resu lt [facility] [address] [place] [address], [place] [phone] * Lipase (05/07/2024 12:00 PM EST) Lipase 36 13 - 75 unit/L LAB CHEMISTRY METHOD 05/07/2024 3:12 PM EST [facility] Blood Venous blood specimen / Unknown Venipuncture / Unknown 05/07/2024 12:00 PM EST 05/07/2024 12:00 PM EST us Jimmy MCCORMACK LAB BLOOD ORDERABLES Final Resu lt [facility] [address] [place] [address], [place] [phone] * Ferritin (05/07/2024 12:00 PM EST) Ferritin 171 8 - 252 ng/mL LAB CHEMISTRY METHOD 05/07/2024 3:17 PM EST [facility] Blood Venous blood specimen / Unknown Venipuncture / Unknown 05/07/2024 12:00 PM EST 05/07/2024 12:00 PM EST us Jimmy Diaz PA LAB BLOOD ORDERABLES Final Resu lt [facility] [address] [place] [address], * (ABNORMAL) Comprehensive metabolic panel (05/07/2024 12:00 PM EST) Sodium 137 133 - 145 mmol/L LAB CHEMISTRY METHOD 05/07/2024 3:17 PM EST [facility] Potassium 4.4 3.5 - 5.5 mmol/L LAB CHEMISTRY METHOD 05/07/2024 3:17 PM [facility] Chloride 101 96 - 110 mmol/L LAB CHEMISTRY METHOD 05/07/2024 3:17 PM [facility] CO2 31 21 - 32 mmol/L LAB CHEMISTRY METHOD 05/07/2024 3:17 PM [facility] Anion Gap 5 3 - 11 LAB CHEMISTRY METHOD 05/07/2024 3:17 PM [facility] Glucose 87 70 - 100 mg/dL LAB CHEMISTRY METHOD 05/07/2024 3:17 PM [facility] BUN 16 5 - 25 mg/dL LAB CHEMISTRY METHOD 05/07/2024 3:17 PM [facility] Creatinine 1.29(H) 0.50 - 1.10 mg/dL LAB CHEMISTRY METHOD 05/07/2024 3:17 PM [facility] eGFR 49(L) >=60 mL/min/1. 73m2 LAB CHEMISTRY METHOD 05/07/2024 3:17 PM [facility] Comment:Calculation based on the??Chronic Kidney Disease Epidemiology Collaboration (CKD-EPI) equation refit??without adjustment for race. BUN/Creatinine Ratio 12.4 LAB CHEMISTRY METHOD 05/07/2024 3:17 PM [facility] Calcium 9.9 8.5 - 10.5 mg/dL LAB CHEMISTRY METHOD 05/07/2024 3:17 PM [facility] AST (SGOT) 19 10 - 42 unit/L LAB CHEMISTRY METHOD 05/07/2024 3:17 PM [facility] ALT (SGPT) 48 10 - 60 unit/L LAB CHEMISTRY METHOD 05/07/2024 3:17 PM [facility] Alkaline Phosphatase 97 42 - 121 unit/L LAB CHEMISTRY METHOD 05/07/2024 3:17 PM [facility] Total Protein 7.8 6.0 - 8.0 g/dL LAB CHEMISTRY METHOD 05/07/2024 3:17 PM [facility] Albumin 4.4 3.2 - 5.0 g/dL LAB CHEMISTRY METHOD 05/07/2024 3:17 PM [facility] Total Bilirubin 0.6 0.0 - 1.4 mg/dL LAB CHEMISTRY METHOD 05/07/2024 3:17 PM [facility] Blood Venous blood specimen / Unknown Venipuncture / Unknown 05/07/2024 12:00 PM EST 05/07/2024 12:00 PM EST Jimmy MCOCRMACK LAB BLOOD ORDERABLES Final Resu lt [facility] [address] [place] [address], * Depression Screening (03/04/2024) Pathologist [facility] Depression Screening Abstracted Historical Provider HEALTH MAINTENANCE Final Result * (ABNORMAL) Lipid panel (03/04/2024) LDL/HDL Ratio 4 0 - 4 Triglycerides [...] PROCEDURES Final Result * Pap Smear (11/07/2022) Pathologist [facility] Pap smear No Interpretation , Abstracted Historical Provider HEALTH MAINTENANCE Final Result * Colonoscopy (04/07/2021) [facility] Colonoscopy No Interpretation , Abstracted Anatomical Region Laterality Modality Other Historical Provider HEALTH MAINTENANCE Final Result * Hepatitis C Screening (03/06/2019) [facility] Hepatitis C Screening Abstracted Historical Provider HEALTH MAINTENANCE Final Result from Last 3 Months or Most Recently Relevant to Health Maintenance Insurance [facility] MEDIC[facility] Member Subscriber Plan / Payer (Ef fective 2018-Present) Name:Destinee Mcdermott Relation to Subscriber:Self Name:Destinee Mcdermott Payer ID:[id number] Group ID:[id number] Type:Not on file Address: [place] [address] [address] Care Teams Statement Request Clerk Relationship Specialty Start Date End Date Lauro Muñoz MD [address] [place] [address] PCP - General 08/29/22
--- OUTSIDE RECORDS SUMMARY | 2024-07-29 10:03 | XMS_ITS | Clinical Summary ---
Author Organization [facility] Address [address] [place] [address] Care Team Providers Care Cancer Spec Name Role Phone Nadege Anderson Primary Care Provider [phone] Allergies Active Allergy Reactions Criticality Noted Date [...] Overview: [facility]) Prior history of pos RACHEL, arthralgias, [...] age to complete this topic Care Teams Cancer Spec Relationship Specialty Start Date End Date Nadege Anderson Nallely [address] [place] [address] PCP - General Internal Medicine 09/25/18
--- OUTSIDE RECORDS SUMMARY | 2024-07-29 10:03 | XMS_ITS | Encounter Summary ---
Author Organization [facility] Address [address] [place] [address] Care Team Providers Care Director Of Learning Name Role Phone Lauro Muñoz MD Primary Care Provider [phone] Reason for Visit * Reason Onset Date Comments Fitting for DME 07/17/2024 Encounter Details Date Type Department Care Team ([facility] Contact Info) Description 07/17/2024 Telephone Internal Medicine - [place] [address] [phone] Lauro Muñoz MD [address] [address] Fitting for DME Social History Tobacco Use Types Packs/Day Years Used Date Smoking Tobacco: Never Smokeless Tobacco: Never Alcohol Use Standard Drinks/Week Comments Yes 0 (1 standard drink = 0.6 oz pur e alcohol) Comments Unknown Sex and Gender Information Value Date Recorded Sex Assigned at Female 05/15/2024 10:59 AM EST Legal Sex Female 4:36 AM EST Gender Identity Female 05/15/2024 10:59 AM EST Sexual Orientation Not on file documented as of this encounter Ordered Prescriptions Prescription Sig Dispense Quantity Refills Last Filled Start Date End Date incontinence pad, liner, disp padIndications:Urin celso incontinence, unspecified type 1 each 1 (one) time each day. 100 each 11 07/17/2024 documented in this encounter Progress Notes * Jimena Mcdermott MA - 07/18/2024 9:28 AM EST Faxed to [facility] [phone] * Jimena cMdermott [place] - 07/17/2024 2:56 PM EST Pended. * Dunia Donohue - 07/17/2024 1:33 PM EST DME REQUEST Name of Product: thin Pads with wings for underwear's 3 a day Specific information about product # Needed 90 a month Reason patient is asking for this supply? accidents Have you received this supply before? If yes , when?: No Have you discussed the need for this supply with a provider at a recent visit? If yes, with who andwhen? No When completed: Fax to other office/MD/pharmacy at fax # [phone] Have you told the patient it will take 7-10 days for completion of this request? Yes documented in this encounter Plan of Treatment Upcoming Encounters Date Type Department Care Team (Late st Contact Info) Description 09/08/2024 12:00 PM EDT Consult Internal Medicine - [place] [address] [phone] Lauro Muñoz MD [address] [place] [address] 01/27/2025 9:45 AM EDT Appointment [facility] at [facility] [address] [place] [phone] documented as of this encounter Visit Diagnoses Diagnosis Urinary incontinence, unspecified type- Primary Encounter for screening mammogram for breast cancer documented in this encounter Discontinued Medications Medication Sig Discontinue Reason Start Date End Da te incontinence pad, liner, disp pad 1 Each by Does not apply route daily. Reorder 06/19/2023 07/17/2024 documented as of this encounter Care Teams Director Of Learning Relationship Specialty Start Date End Date Lauro Muñoz MD [address] [place] [address] PCP - General 08/29/22 documented as of this encounter
--- OUTSIDE RECORDS SUMMARY | 2024-07-29 10:03 | XMS_ITS | Encounter Summary ---
Author Organization [facility] Address [address] [place] [address] Care Team Providers Care [employer]ospace Products Sales Engineer Name Role Phone Lauro Muñoz MD Primary Care Provider [phone] Reason for Visit * Reason Onset Date Comments DME 07/10/2024 Encounter Details Date Type Department Care Team ([facility] st Contact Info) Description 07/10/2024 Telephone Internal Medicine - [place] 175 [facility] [address] [place] [phone] Lauro Muñoz MD [address] [address] DME Social History Tobacco Use Types Packs/Day [...] on file documented as of this encounter Progress Notes * Maria Ines Horta - 07/24/2024 4:21 PM EST [facility] called and stated they faxed over a request for the BP monitor on 07/19/24 and Iinformed them [facility] but they would like it also be sent to [facility] as well. Cb# [phone] * Jimena Mcdermott MA - 07/11/2024 9:15 AM EST Faxed to [employer] [phone] * Jimena Mcdermott MA - 07/10/2024 3:42 PM EST pended * Maria Ines Horta - 07/10/2024 3:37 PM EST Name of Product: pads, blood pressure machine Specific information about product medium length with wings and odder control, large BP machine # Needed 60a month, 1 Reason patient is asking for this supply? Incontinence and high BP Have you received this supply before? If yes , when?: no. Has Patient been seen in the last 6 months yes If NO, Please book appt before DME can be ordered Have you discussed the need for this supply with a provider at a recent visit? no If yes, with who and when? No Child Life Appt necessary When completed, SHIPPING ADDRESS: [address] [place] [phone] Have you told the patient it will take 7-10 days for completion of this request? yes documented in this encounter Plan of Treatment Upcoming Encounters Date Type Department Care Team (Late st Contact Info) Description 09/08/2024 12:00 PM EDT Consult Internal Medicine - [place] [address] [phone] Lauro Muñoz MD [address] [address] 01/27/2025 9:45 AM EDT Appointment [facility] at [address] [phone] documented as of this encounter Visit Diagnoses Diagnosis Essential hypertension- Primary Unspecified essential hypertension Encounter for screening mammogram for breast cancer documented in this encounter Orders General Supply Count Last Ordered Date First Or dered Date BLOOD PRESSURE MONITOR 1 07/10/2024 documented in this encounter Care Teams Aerospace Products Sales Engineer Relationship Specialty Start Date End Date Lauro Muñoz MD [address] [place] [address] PCP - General 08/29/22 documented as of this encounter
== END 2024-07-29 10:19 | disposition home or self-care (01) ==
PROVIDERS: PCP Internal Medicine; Visit Provider Nurse Practitioner Family
DX: G40.909 Epilepsy, unspecified, not intractable, without status epilepticus (principal); R25.9 Unspecified abnormal involuntary movements; D89.44 Hereditary alpha tryptasemia
CPT/HCPCS: 99214; G2211

== ENCOUNTER → 2024-07-29 09:08 | Outpatient (BNVA) | payer OTHER, SELFPAY | PROVIDERS: PCP Internal Medicine; Visit Provider Nurse Practitioner Family | DX: G40.909 Epilepsy, unspecified, not intractable, without status epilepticus (principal); R25.9 Unspecified abnormal involuntary movements; D89.44 Hereditary alpha tryptasemia | CPT/HCPCS: 99212 ==

== ENCOUNTER 2024-09-09 08:55 | Outpatient (REF) | payer OTHER, SELFPAY ==
--- NOTE | 2024-09-09 08:38 | EEG_ITS ---
FINDINGS: Waking background activity consists of low voltage, fast frequency seen diffusely intermixed with well-defined posterior 9 Hz alpha frequency of moderate voltage, but it terminates while in eye opening. Photic stimulation is without activation. No sleep stages are identified. No focal, lateralizing, or paroxysmal discharges are seen. IMPRESSION: This waking electroencephalogram is within normal limits. MD BONI Smiley/CATY / [phone]
--- OUTSIDE RECORDS SUMMARY | 2024-09-09 09:23 | XMS_ITS | Clinical Summary ---
Author Organization [facility] Address [address] [place] [address] Care Team Providers Care Mica Spreader Name Role Phone Nadege Anderson Primary Care Provider [phone] Allergies Active Allergy Reactions Criticality Noted Date [...] Overview: [facility]) Prior history of pos RACHEL, arthralgias, [...] age to complete this topic Care Teams Mica Spreader Relationship Specialty Start Date End Date Nadege Anderson Nallely [address] [place] [address] PCP - General Internal Medicine 09/25/18
--- OUTSIDE RECORDS SUMMARY | 2024-09-09 09:23 | XMS_ITS | Encounter Summary ---
Author Organization [facility] Address [address] [place] [address] Care Team Providers Care Senior Commissions Analyst Name Role Phone Lauro Muñoz MD Primary Care Provider Reason for Visit * Reason Onset Date Comments Toni - Gigi 09/08/2024 Encounter Details Date Type Department Care Team ([facility] st Contact Info) Description 09/08/2024 Telephone Internal Medicine - [place] 175 [facility] [address] [place] [phone] Lauro Muñoz MD [address] [address] Muñoz - Letter Social History Tobacco Use Types Packs/Day Years Used Date Smoking Tobacco: Never Smokeless Tobacco: Never Alcohol Use Standard Drinks/Week Comments Yes 0 (1 standard drink = 0.6 oz pur e alcohol) Housing Instability Answer Date Recorde d Are you worried that in the next 2 months you may not have stable housing? No 09/07/2024 Food Access & Nutrition Answer Date Rec orded Do you have access to a vari ety of food including fruits and vegetables? Yes 09/07/2024 Access to Healthcare Answer Date Record ed Within the last 3 months, ho w many times did you visit the emergency department for your medical care? 0 09/07/2024 Health Literacy Answer Date Recorded How often do you need to hav e someone help you when you read instructions, pamphlets, or other written material from your doctor or pharmacy? Never 09/07/2024 Caregiver: How often do you need to have someone help you when you read instructions, pamphlets, or other written material from your doctor or pharmacy? Not on file 09/07/2024 Financial Risk Answer Date Recorded How hard is it for you to pa y for the very basics like food, housing, medical care, and air conditioning / heating? Somewhat hard 09/07/2024 Transportation Answer Date Recorded Has the lack of transportati on kept you from meetings, work, or from getting things needed for daily living? No Has the lack of transportati on kept you from medical appointments or from getting medications? No 09/07/2024 Social Isolation Answer Date Recorded How often do you feel lonely or isolated from th ose around you? Never 09/07/2024 Food Risk Answer Date Recorded Within the past 12 months we worried whether our food would run out before we got money to buy more. Never true 09/07/2024 Within the past 12 months th e food we bought just didn't last and we didn't have money to get more. Never true 09/07/2024 Dependent Care Answer Date Recorded Do you need help finding or paying for care for your loved ones. For example, early childhood educator aide or elderly care for an older adult? No 09/07/2024 Education Answer Date Recorded Do you think completing more education or training, like finishing a GED, going to college, or learning a trade, would be helpful for you? No 09/07/2024 Employment and Income Answer Date Recor ded During the last four weeks, have you been actively looking for work? No 09/07/2024 Living Situation Answer Date Recorded What is your living situation? 0 09/07/2024 Comments Unknown Sex and Gender Information Value Date Recorded Sex Assigned at Female 05/15/2024 10:59 AM EST Legal Sex Female 4:36 AM EST Gender Identity Female 05/15/2024 10:59 AM EST Sexual Orientation Not on file documented as of this encounter Progress Notes * Yinka Mcgrath MA - 09/08/2024 1:15 PM EDT Please advise * Olesya Hart - 09/08/2024 12:27 PM EDT Pt requested a letter to be excused from Jury Duty. Because she is having surgery. She stated the medical resident took a picture of pt's badge number. Please advise. Call pt when ready to tack picker, . documented in this encounter Plan of Treatment Upcoming Encounters Date Type Department Care Team (Late st Contact Info) Description 09/10/2024 3:30 PM EDT Office Visit Orthopedic Surgery - [place] 160 175 [facility] [address] [place] [phone] Michelle Slaughter PA 175 [facility] [address] [place] [address] 09/12/2024 12:40 PM EDT Consult [facility] [place] [address] [place] [phone] Vicki Burch NP [address] [place] [address] 01/27/2025 9:45 AM EDT Appointment [facility] [address] [place] [phone] documented as of this encounter Visit Diagnoses Not on filedocumented in this encounter Additional Health Concerns Assessment Noted Time PHQ-9 Depression Total Score: 11 025 3:36 PM EDT documented as of this encounter Care Teams Senior Commissions Analyst Relationship Specialty Start Date End Date Lauro Muñoz MD 175 [facility] [address] [place] [address] PCP - General 08/29/22 documented as of this encounter
--- OUTSIDE RECORDS SUMMARY | 2024-09-09 09:23 | XMS_ITS | Encounter Summary ---
Author Organization [facility] Address [address] [place] [address] Care Team Providers Care Security Strategist Name Role Phone Lauro Muñoz MD Primary Care Provider [phone] Reason for Visit * Reason Comments Pre-op Exam Encounter Details Date Type Department Care Team ([facility] Contact Info) Description 09/08/2024 12:00 PM EDT Consult Internal Medicine - [place] 175 [facility] [address] [place] [phone] Lauro Muñoz MD [address] [address] Pre-op evaluation (Primary Dx); Systemic lupus erythematosus, unspecified SLE type, unspecified organ involvement status (CMS/HCC V24, CMS/[facility] V28); Essential hypertension; Gastroesophageal reflux disease, unspecified whether esophagitis present; Hypothyroidism, unspecified type; Seizures (CMS/HCC V24, [facility] V28) Social History Tobacco Use Types Packs/Day Years [...] Record ed Within the last 3 months, kelsie white many times did you visit the emergency [...] care for your loved ones. For example, child care associate teacher or elderly care for an older adult? [...] on file documented as of this encounter Last Filed Vital Signs Vital Sign Reading Time Taken Comments Blood Pressure 128/86 09/08/2024 11:55 AM EDT Pulse 74 09/08/2024 11:55 AM EDT Temperature - - Respiratory Rate - - Oxygen Saturation 99% 09/08/2024 11:55 AM EDT Inhaled Oxygen Concentration - - Weight 82.6 kg (182 lb) 09/08/2024 11:55 AM EDT Height - - Body Mass Index 30.29 05/07/2024 11:06 AM EST documented in this encounter Progress Notes * Lauro Muñoz MD - 09/08/2024 12:00 PM EDT CHIEF COMPLAINT: Pre-op Exam IDENTIFIER: Destinee Mcdermott is a 59 y.o. old female. History of Present Illness The patient presents for a preoperative evaluation. Right Rotator Cuff Repair Surgery - Scheduled for her sixth surgery on the same shoulder - 10 hooks in her shoulder, one possibly dislodged during a seizure - Experiences recurrent shoulder dislocations, numbness in fingers, and loss of pulse with posterior dislocations - Recovery post-surgery estimated at 6 months, with a brace for 10-12 weeks - Concerned about surgery due to history of strokes, lupus, and fibromyalgia - History of postoperative infections - Considered high-risk by an anesthesiologist - Plans to resume chemotherapy in October, post-surgery - Advised to discontinue methotrexate 2 weeks prior and resume postoperatively - Has used Phenergan suppositories for nausea Elevated Blood Pressure - Managed with medication - Monitors it daily - Reports jaw and neck pain with significant elevation - Passenger Car Conductor appointment on Sunday - On amlodipine 5 mg and hydrochlorothiazide Methotrexate and Chemotherapy - Restarted methotrexate and chemotherapy - Discontinued methotrexate due to severe illness and vomiting MRI and Eye Doctor Visit - Had a brain MRI last week - Informed of MRI abnormalities possibly due to immune system issues - Eye doctor noted high blood pressure and changes behind her eyes Upcoming Appointments and Tests - PCP appointment on Sunday for preop evaluation - Scheduled for a special test for her head at [facility] tomorrow - Ordered an MRI due to frequent seizures Supplemental information: She has elevated blood pressure managed with medication, monitors it daily, and reports jaw and neck pain with significant elevation. She has a automatic outsole cutter appointment on Sunday and is on amlodipine 5 mg and hydrochlorothiazide. MEDICATIONS Current: Amlodipine, hydrochlorothiazide, aspirin, methotrexate (discontinued) Past: Plaquenil ROS: as per HPI GENERAL: No malaise, significant weight loss or fever HEENT: No changes in hearing or vision, nose bleeds or other nasal problems NECK: No lumps, goiter, pain or significant neck swelling RESPIRATORY: No cough, wheezing or shortness of breath CARDIOVASCULAR: No chest pain, leg swelling or palpitations BREAST: No lumps, discharge, pain or change in skin GI: No abdominal discomfort, blood in stools or black stools : No dysuria, frequency or incontinence DIRECTOR OF CHANNEL MARKETING: No abnormal vaginal bleeding or abnormal vaginal discharge. MUSCULOSKELETAL: No joint pain or swelling, back pain, or muscle pain. SKIN: No lesions, rash or itching PSYCH: No sleep disturbance, mood disorder or recent psychosocial stressors. HEMATOLOGY/LYMPHOLOGY No prolonged bleeding, easy bruisability or swollen nodes ENDOCRINE: No cold or heat intolerance, polyuria, polydipsia or goiter. 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 Precordial pain 01/31/2021 NSTEMI (non-ST elevated myocardial infarction) ([facility] V24, [facility] V28) 01/28/2021 Elevated serum tryptase 10/27/2020 Anxiety and depression 07/15/2020 GERD (gastroesophageal reflux disease) 07/15/2020 Stroke ([facility] V24, [facility] V28) 07/15/2020 Conjunctivitis, allergic, bilateral 05/26/2020 Perennial allergic rhinitis 05/26/2020 Tremor of right hand 04/06/2020 Essential hypertension 03/08/2020 Lumbar spondylosis 11/10/2019 It band syndrome, left 11/14/2018 Hypothyroidism 11/07/2018 Fibromyalgia 06/10/2018 Iron deficiency anemia due to chronic blood loss 06/10/2018 Lung nodule 06/10/2018 Menorrhagia with irregular cycle 06/10/2018 Seizures ([facility] V24, [facility] V28) 06/10/2018 Severe persistent asthma ([facility] V28) 06/10/2018 Systemic lupus erythematosus ([facility] V24, [facility] V28) 06/10/2018 Past Surgical History: Procedure Laterality Date BREAST BIOPSY PROCEDURE: BX BREAST; PERC NEEDLE CORE W/IMAG GUID BREAST LUMPECTOMY Bilateral 2010 PROCEDURE: HISTORICAL BREAST LUMPECTOMY; COMMENT: Breast biopsy negative COLONOSCOPY 11/2016 PROCEDURE: HISTORICAL COLONOSCOPY; COMMENT: sister age 39 colon CA, anemia. KNEE SURGERY Right 2014 PROCEDURE: HISTORICAL KNEE SURGERY; COMMENT: 2009 & 2014 for meniscus tears (in [place]) OTHER SURGICAL HISTORY 05/2017 PROCEDURE: HISTORICAL D&C; COMMENT: in [place] for menorrhagia, no cancer found OTHER SURGICAL HISTORY 12/11/2018 PROCEDURE: MA ENDOMETRIAL BX W/WO ENDOCERVIX BX W/O DILAT SPX; COMMENT: Dr. Gautam OTHER SURGICAL HISTORY Bilateral 12/2018 PROCEDURE: [place] UNLISTED PROCEDURE EYELIDS; COMMENT: for droopy eyelids OTHER SURGICAL HISTORY PROCEDURE: HISTORY OTHER; COMMENT: Cardiac cath x2 SHOULDER SURGERY Right 1985 PROCEDURE: HISTORICAL SHOULDER SURGERY; COMMENT: 5 surgeries 1985 to 1991 for dislocations, 10 hooks in my shoulder TUBAL LIGATION PROCEDURE: HISTORICAL TUBAL LIGATION SOCIAL HISTORY: Social History Tobacco Use Smoking status: Never Smokeless tobacco: Never Substance Use Topics Alcohol use: Yes FAMILY HISTORY: Family History Problem Relation Name Age of Onset Other (Other: stroke, [place], dementia) Mother Colon cancer Mother Coronary artery disease Father hyperlipidemia, mild multiple sclerosis Colon cancer Sister Parul 39.00 she's 52 as of 05/2018 Other (Other: Army Captain 05/2018) Son Jack Other (Other: [employer]) Son Adiel Breast cancer Aunt 79.00 Paternal aunt Breast cancer Sister 45.00 Half sister Leukemia Sister Family Status Relation Name Status Mother Alive Father Alive Sister Parul Alive Son Jack Alive Son Adiel Alive Aunt Alive Sister Alive No partnership data on file MEDICATIONS DISCONTINUED/REORDERED: There are no discontinued medications. ACTIVE MEDICATIONS: Outpatient Medications Marked as Taking for the 09/08/24 encounter (Consult) with Lauro Muñoz MD Medication Sig Dispense Refill folic acid (FOLVITE) 1 mg tablet TAKE 3 TABLETS BY MOUTH DAILY FOR 90 DAYS methotrexate 2.5 mg tablet Take 6 tablets (15 mg total) by mouth ALLERGIES: Allergies Allergen Reactions Adhesive Tape-Silicones Piperacillin-Tazobactam Other Reaction(s): Hives/Urticaria Shellfish Derived Anaphylaxis Gadobutrol Other Reaction(s): Hives/Urticaria Patient developed hives 15 min after MRI injection, radiologist suggested for any future contrast studies patient should premedicate for allergies//TT Amlodipine Jaw numbness Bee Venom Protein (Honey Bee) Large local reaction Codeine Other Reaction(s): Hives/Urticaria Hydroxyzine Hydroxyzine Hcl Swelling Hydroxyzine Pamoate Iodinated Contrast Media Lisinopril Cough Montelukast Headache Other Seasonal Allergies Pregabalin Swelling Lip swelling Shellfish Containing Products Other Reaction(s): Hives/Urticaria anaphylaxis Povidone-Iodine Other Reaction(s): Hives/Urticaria PHYSICAL EXAM: Visit Vitals BP 128/86 (BP Location: Left arm, Patient Position: Sitting, BP Cuff Size: Large adult) Pulse 74 Wt 82.6 kg (182 lb) SpO2 99% BMI 30.29 kg/m?? Smoking Status Never BSA 1.9 m?? Physical Exam Physical Exam LABS/IMAGING: Appointment on 06/10/2024 Component Date Value Ref Range Status Sodium 06/10/2024 138 133 - 145 mmol/L Final Potassium 06/10/2024 4.5 3.5 - 5.5 mmol/L Final Chloride 06/10/2024 105 96 - 110 mmol/L Final CO2 06/10/2024 27 21 - 32 mmol/L Final Anion Gap 06/10/2024 6 3 - 11 Final Glucose 06/10/2024 95 70 - 100 mg/dL Final BUN 06/10/2024 13 5 - 25 mg/dL Final Creatinine 06/10/2024 0.91 0.50 - 1.10 mg/dL Final eGFR 06/10/2024 74 >=60 mL/min/1.73m2 Final BUN/Creatinine Ratio 06/10/2024 14.3 Final Calcium 06/10/2024 9.3 8.5 - 10.5 mg/dL Final Appointment on 05/07/2024 Component Date Value Ref Range Status Sodium 05/07/2024 137 133 - 145 mmol/L Final Potassium 05/07/2024 4.4 3.5 - 5.5 mmol/L Final Chloride 05/07/2024 101 96 - 110 mmol/L Final CO2 05/07/2024 31 21 - 32 mmol/L Final Anion Gap 05/07/2024 5 3 - 11 Final Glucose 05/07/2024 87 70 - 100 mg/dL Final BUN 05/07/2024 16 5 - 25 mg/dL Final Creatinine 05/07/2024 1.29 (H) 0.50 - 1.10 mg/dL Final eGFR 05/07/2024 49 (L) >=60 mL/min/1.73m2 Final BUN/Creatinine Ratio 05/07/2024 12.4 Final Calcium 05/07/2024 9.9 8.5 - 10.5 mg/dL Final AST (SGOT) 05/07/2024 19 10 - 42 unit/L Final ALT (SGPT) 05/07/2024 48 10 - 60 unit/L Final Alkaline Phosphatase 05/07/2024 97 42 - 121 unit/L Final Total Protein 05/07/2024 7.8 6.0 - 8.0 g/dL Final Albumin 05/07/2024 4.4 3.2 - 5.0 g/dL Final Total Bilirubin 05/07/2024 0.6 0.0 - 1.4 mg/dL Final C-Reactive Protein 05/07/2024 <0.29 <=0.50 mg/dL Final Ferritin 05/07/2024 171 8 - 252 ng/mL Final Lipase 05/07/2024 36 13 - 75 unit/L Final WBC 05/07/2024 7.5 4.8 - 10.8 K/mcL Final RBC 05/07/2024 5.30 (H) 3.80 - 4.80 M/mcL Final Hemoglobin 05/07/2024 14.4 11.5 - 16.0 g/dL Final Hematocrit 05/07/2024 46.6 35.0 - 47.0 % Final MCV 05/07/2024 87.9 79.0 - 98.0 FL Final MCH 05/07/2024 27.2 27.0 - 32.0 pcg Final MCHC 05/07/2024 30.9 (L) 32.0 - 37.0 g/dL Final RDW 05/07/2024 13.2 11.0 - 15.0 % Final Platelets 05/07/2024 262 130 - 400 K/mcL Final MPV 05/07/2024 10.2 7.0 - 11.0 FL Final NRBC 05/07/2024 0.0 <1.0 % Final NRBC Absolute 05/07/2024 0.00 <0.10 K/mcL Final Neutrophils Relative 05/07/2024 65.7 % Final Lymphocytes Relative 05/07/2024 26.7 % Final Monocytes Relative 05/07/2024 5.2 % Final Eosinophils Relative 05/07/2024 1.7 % Final Basophils Relative 05/07/2024 0.4 % Final Immature Granulocytes Relative 05/07/2024 0.3 % Final Neutrophils Absolute 05/07/2024 4.90 1.50 - 7.00 K/mcL Final Lymphocytes Absolute 05/07/2024 1.99 1.00 - 5.00 K/mcL Final Monocytes Absolute 05/07/2024 0.39 0.20 - 1.00 K/mcL Final Eosinophils Absolute 05/07/2024 0.13 0.00 - 0.50 K/mcL Final Basophils Absolute 05/07/2024 0.03 0.00 - 0.20 K/mcL Final Immature Granulocytes Absolute 05/07/2024 0.02 0.00 - 0.03 K/mcL Final Abstract on 03/28/2024 Component Date Value Ref Range Status Hepatitis C Screening 03/06/2019 Abstracted Final Depression Screening 03/04/2024 Abstracted Final Annual BMP Blood Test 03/04/2024 Abstracted Final Pap smear 11/07/2022 No Interpretation, Abstracted Final Colonoscopy 04/07/2021 No Interpretation, Abstracted Final Urine Albumin Creatinine Ratio 04/15/2021 Abstracted Final LDL/HDL Ratio 03/04/2024 4 0 - 4 Final Triglycerides 03/04/2024 277 (A) 0 - 150 mg/dL Final Cholesterol 03/04/2024 233 (A) 0 - 200 mg/dL Final HDL 03/04/2024 62 >=40 mg/dL Final LDL Cholesterol 03/04/2024 116 (A) 0 - 100 mg/dL Final Hemoglobin A1C 12/25/2022 5.5 <=6.5 % Final Results Imaging MRI of the brain showed multiple white matter propagations. Testing EKG is normal. IMPRESSION: 1. Pre-op evaluation 2. Systemic lupus erythematosus, unspecified SLE type, unspecified organ involvement status ([facility] V24, [facility] V28) 3. Essential hypertension 4. Gastroesophageal reflux disease, unspecified whether esophagitis present 5. Hypothyroidism, unspecified type 6. Seizures ([facility] V24, [facility] V28) PLAN: Pre-op evaluation (Primary) Systemic lupus erythematosus, unspecified SLE type, unspecified organ involvement status (CMS/HCC V24, [facility] V28) Essential hypertension Gastroesophageal reflux disease, unspecified whether esophagitis present Hypothyroidism, unspecified type Seizures ([facility] V24, [facility] V28) Assessment & Plan 1. Preoperative evaluation: Normal. No symptoms during 4 METS. EKG within normal limit. But patienthave a history of cardiac arrest before surgery as per patient due to anesthesia Patient can go for surgery with mild to moderate risk. - EKG and May 2024 blood work are normal. - Not diabetic. - Discontinue aspirin 5 days and methotrexate 2 weeks before surgery. - Continue other medications, including seizure meds, per surgeon's instructions. - Consult surgeon about thyroid and seizure meds on surgery morning. - Provide jury duty exemption letter. 2. Lupus: Chronic. - Restart methotrexate SHELDON post-surgery to prevent lupus flare-ups. - Use ondansetron or Phenergan for nausea. 3. Hypertension: Chronic. - Monitor blood pressure regularly, ideally 1 hour post-antihypertensive medication. - Continue hydrochlorothiazide and amlodipine 5 mg daily. - Provide blood pressure log sheet. 4. Seizure disorder: Chronic. - Scheduled for head test at [facility] due to frequent seizures. - MRI ordered. - Check with surgeon about seizure meds on surgery morning with a little water. 5. Fibromyalgia: Chronic. - Concerns about surgery response due to fibromyalgia. Follow-up - Appointment with automatic outsole cutter on Sunday, for blood pressure PROCEDURE The patient has undergone five previous surgeries on the right shoulder. I have obtained verbal consent from Destinee Mcdermott prior to the recording. I have advised Destinee Mcdermott that she may refuse the recording and require the recording to be turned off at any time during this encounter. Advised the patient to call me if any problems. Patient understands the plan. Patient is in agreement with the plan. Lauro Muñoz MD on 09/08/2024 at 5:34 PM EDT documented in this encounter Plan of Treatment Upcoming Encounters Date Type Department Care Team (Late st Contact Info) Description 09/10/2024 3:30 PM EDT Office Visit Orthopedic Surgery - [place] 160 175 [facility] [address] [place] [phone] Michelle Slaughter PA 175 [facility] Tony [address] [place] [address] 09/12/2024 12:40 PM EDT Consult [facility] [address] [place] [address] Pauline [address] [place] [phone] Vicki Burch NP [address] [place] [address] [place] [address] 01/27/2025 9:45 AM EDT Appointment [facility] [address] [place] [phone] documented as of this encounter Visit Diagnoses Diagnosis Pre-op evaluation- Primary Systemic lupus erythematosus, unspecified SLE type, unspecified organ involvement status (CMS/HCC V24, CMS/HCC V28) Essential hypertension Unspecified essential hypertension Gastroesophageal reflux disease, unspecified whether esophagitis present Hypothyroidism, unspecified type Seizures (CMS/HCC V24, CMS/HCC V28) Other convulsions Primary osteoarthritis of right knee- Primary Chronic pain of right knee Encounter for screening mammogram for breast cancer documented in this encounter Historical Medications * This list may reflect changes made after this encounter. folic acid (FOLVITE) 1 mg tablet TAKE 3 TABLETS BY MOUTH DAILY FOR 90 DAYS 07/10/2024 methotrexate 2.5 mg tablet Take 6 tablets (15 mg total) by mouth 07/10/2024 added in this encounter Additional Health Concerns Assessment Noted Time PHQ-9 Depression Total Score: 11 025 3:36 PM EDT documented as of this encounter Care Teams Security Strategist Relationship Specialty Start Date End Date Lauro Muñoz MD 175 [facility] [address] [place] [address] PCP - General 08/29/22 documented as of this encounter
--- OUTSIDE RECORDS SUMMARY | 2024-09-09 09:24 | XMS_ITS | Clinical Summary ---
Author Organization [facility] Address [address] [place] [address] Phone Care Team Providers Care Copier Operator Name Role Phone Lauro Muñoz MD Primary Care Provider [phone] Allergies Active Allergy Reactions Criticality Noted Date [...] 03/13/20 24 Active UNABLE TO FIND Calcium Carb-Cholecalcif emilio 500-10 MG-MCG TAKE 1 TABLET BY MOUTH [...] Injection 1 each 3 04/08/20 24 Active levothyroxine (SYNTHROID, LEVOTHROID) 50 mcg [...] needed for nausea or vomiting. 60 tablet 05/07/20 24 Active albuterol 2.5 mg /3 mL (0.083 %) nebulizer solutionIndication s:Severe persistent asthma, unspecified whether complicated ([facility] V28) Take 3 mL (2.5 mg total) by [...] each day. 100 each 07/17/19 25 Active diclofenac (VOLTAREN) 1 % topical gel Apply 2 g topically 4 (four) times a day. 100 g 11 08/07/19 25 026 Active gabapentin (NEURONTIN) 100 mg capsule Take 1 capsule (100 mg total) by mouth at bedtime. 90 capsule 1 08/07/19 25 Active methotrexate 2.5 mg tablet Take 6 tablets (15 mg total) by mouth 07/10/19 25 Active folic acid (FOLVITE) 1 mg tablet TAKE 3 TABLETS BY MOUTH DAILY FOR 90 DAYS 07/10/19 25 Active Active Problems Problem Noted Date Diagnosed Date Primary osteoarthritis of right knee 09/09/2024 Atypical chest pain 03/28/2024 Epigastric pain 03/28/2024 [...] 10/13/2021 Precordial pain 01/31/2021 NSTEMI (non-ST elevated myoc ardial infarction) ([facility] V24, [facility] V28) 01/28/2021 Elevated serum tryptase 10/27/2020 Anxiety and depression 07/15/2020 GERD (gastroesophageal reflux disease) Stroke ([facility] V24, [facility] V28) 07/15/2020 Conjunctivitis, allergic, bilateral 05/26/2020 Perennial [...] always a 10/10. She has tried multiple bzuj-mpr-fkiowby pain meds, was prescribed naproxen, has tried gels, heat and ice. She went to physical therapy at [facility] in [place] for about 2 months, was going 2-3 times a week. Last night her pain was so bad she had to sleep on the sofa. She recently was given an injection in the left anterior hip at [facility], I did not help her [...] 2020. 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 Systemic lupus erythematosus ([facility] V24, [facility] V28) 06/10/2018 Overview (03/28/2024): [facility] Prior history of pos RACHEL, arthralgias, rash, seizures On hydroxychloroquine initially 2009 last eye exam 03/15, 11/14 Encounters Date Type Department Care Team Description 09/08/2024 12:00 PM EDT Consult Internal Medicine [address] [phone] Lauro Muñoz MD Pre-op evaluation (Primary Dx); Systemic lupus erythematosus, unspecified SLE type, unspecified organ involvement status ([facility] V24, [facility] V28); Essential hypertension; Gastroesophageal reflux disease, unspecified whether esophagitis present; Hypothyroidism, unspecified type; Seizures ([facility] V24, [facility] V28) 09/08/2024 Telephone Internal Medicine [address] [phone] Lauro Muñoz MD Muñoz - Letter 08/28/2024 8:26 AM EDT - 08/28/2024 11:59 PM EDT Hospital Encounter [facility] [address] [place] [phone] Headache Discharge Disposition: Home or Self Care 08/08/2024 Telephone Internal Medicine [address] [phone] Jimena Mcdermott [place] faxed order ([facility]) 07/17/2024 Telephone Internal Medicine [address] [phone] Lauro Muñoz MD Fitting for DME 07/10/2024 Telephone Internal Medicine [address] [phone] Lauro Muñoz MD DME from Last 3 Months Immunizations Name Administration Dates Next Due Influenza Quadravalent, MDCK , 0.5ml, preservative free (Flucelvax) 6mo and older 03/15/2021,02/24/2020 Influenza trivalent, 0.5mL, preservative free (Fluarix; FluLaval; Fluzone) ages 6mo and older (Afluria) 3 years and older 03/01/2022 Influenza, Unspecified 03/01/2022 Moderna SARS-CoV-2 COVID-19, mRNA, LNP-S, preservative free 04/27/2021,07/15/2020 Pfizer Covid-19 Bivalent, Or iginal + Ba.1 (Non-[employer] Deal[employer]sterIRSynfora Bivalent) 03/13/2022 Pfizer SARS-CoV-2 COVID-19, mRNA, LNP-S, [...] HISTORY 05/2017 PROCEDURE: HISTORICAL D&C; COMMENT: in [place] for menorrhagia, no cancer found BREAST BIOPSY PROCEDURE: BX BREAST; PERC NEEDLE CORE W/IMAG GUID OTHER SURGICAL HISTORY 12/11/2018 PROCEDURE: CA ENDOMETRIAL BX W/WO ENDOCERVIX BX W/O DILAT SPX; COMMENT: Dr. Gautam OTHER SURGICAL HISTORY 12/2018 Bilateral PROCEDURE: CA UNLISTED PROCEDURE EYELIDS; COMMENT: for droopy eyelids BREAST LUMPECTOMY 2010 Bilateral PROCEDURE: HISTORICAL BREAST LUMPECTOMY; COMMENT: Breast biopsy negative OTHER SURGICAL HISTORY PROCEDURE: HISTORY OTHER; COMMENT: Cardiac cath x2 TUBAL LIGATION PROCEDURE: HISTORICAL TUBAL LIGATION Medical History Medical History Date Comments Systemic lupus erythematosus ([facility] V24, [facility] V28) 06/10/2018 DX:Systemic lupus erythemato lucero (HCC) Seizures ([facility] V24, [facility] V28) 06/10/2018 DX:Seizures ([facility]); COMMENT: 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 Fibromyalgia 08/2012 DX:Fibromyalgia; COMMENT: since 2012 Menorrhagia with irregular cycle 06/10/2018 DX:Menorrhagia with irregular cycle Iron deficiency anemia due t o chronic blood loss 06/10/2018 DX:Iron deficiency anemia du e to chronic blood loss Family history of colon cancer 06/10/2018 D X:Family history of colon cancer Severe persistent asthma ( [facility] V28) 06/10/2018 DX:Severe persistent asthma Anxiety and depression DX:Anxiet y and depression CAD (coronary artery disease) DX :CAD (coronary artery disease); COMMENT: s/p [place] in 1998 CVA (cerebral vascular accid ent) ([facility] V24, [facility] V28) DX:CVA (cerebral vascular a ccident) ([facility]); COMMENT: CVA in 1996, with residual L hand weakness. TIA in 1998 Lung nodules DX:Lung nodules Depression DX:Depression Asthma DX:Asthma Anemia DX:Anemia Acute systemic lupus erythem atosus ([facility] V24, [facility] V28) DX:Acute systemic lupus immanuel thematosus ([facility]) Atypical chest pain DX:Atypical chest pain Epigastric [...] multiple sclerosis Colon cancer Mother Other: stroke, [place], dementia Mother Colon cancer Sister 1 Parul she's 52 as of 05/2018 Breast cancer Sister 2 Half sister Leukemia Sister 2 Other: [employer] Captain 05/2018 Son 1 Jack Other: [employer] Son 2 Adiel Relation Name [...] your loved ones. For example, child care centre director or elderly care for an older adult? [...] Pulse 74 09/08/2024 11:55 AM EDT Temperature 36 ??C (96.8 ??F) 06/02/2024 1:14 PM EST Respiratory Rate - - Oxygen Saturation 99% 09/08/2024 11:55 AM EDT Inhaled Oxygen Concentration - - Weight 82.6 kg (182 lb) 09/08/2024 11:55 AM EDT Height 165.1 cm (5' 5 ) 05/07/2024 11:06 AM EST Body Mass Index 30.29 05/07/2024 11:06 AM EST Plan of Treatment Upcoming Encounters Date Type Department Care Team (Late st Contact Info) Description 09/10/2024 3:30 PM EDT Office Visit Orthopedic Surgery - [place] [address] [facility] [address] [place] [phone] Michelle Slaughter PA [address] [facility] [address] [place] [address] 09/12/2024 12:40 PM EDT Consult [facility] [address] [place] [phone] Vicki Burch NP [address] [place] [address] [place] [address] 01/27/2025 9:45 AM EDT [facility]ointment [facility] [address] [phone] Health Maintenance Due Date Last Done Comments [...] Screening 05/06/2022 Medicare Annual Wellness Visit 05/06/2022 COVID-19 Vaccine ( season) 2024 02/29/2024, 03/05/2023, 08/26/2021, Additional history exists Influenza Vaccine (Season Ended) 2025 03/01/2022, 03/01/2022, 03/15/2021, Additional history exists Breast Cancer Screening 01/31/2025 02/01/20 23, 01/17/2023, 12/27/2022, Additional history exists Hypertension/CHF/CAD Annual BMP Blood Test 06/10/2025 06/10/2024, 05/07/2024, 03/04/2024, Additional history exists Depression Screening 09/07/2025 09/07/2024, 03/04/20 24 Social Influencers of Health Screening 09/07/2025 09/07/2024 Cervical Cancer Screening: Pap Smear 11/07/2025 11/07/2022 [...] age to complete this topic Meningococcal B Vaccine Aged Out No l onger eligible based on patient's age to complete this topic RSV Immunization Patients Under 20 months Aged Out No longer eligible based on patient's age to complete this topic Varicella Vaccines Aged Out No longer eligible based on patient's age to complete this topic Procedures Procedure Name Priority Date/Time Associated Diagnosis Comments MR BRAIN WO AND W CONTRAST Routine 08/28/2024 10:32 AM EDT Headache BASIC METABOLIC PANEL Routine 06/10/2024 10:00 AM EST MEMO (acute kidney injury) ([facility] V24) DEPRESSION SCREENING Routine 03/04/2024 LIPID PANEL Routine 03/04/2024 DX MAMMO INCL CAD UNI Routine 01/31/2023 1:18 PM EDT Other abnormal and inconclusive findings on diagnostic imaging of breast PAP SMEAR Routine 11/07/2022 COLONOSCOPY Routine 04/07/2021 HEPATITIS C SCREENING Routine 03/06/2019 from Last 3 Months or Most Recently Relevant to Health Maintenance Results * MR Brain wo and w Contrast (08/28/2024 10:32 AM EDT) Anatomical Region Laterality Modality Head and Neck Magnetic Resonan ce 08/28/2024 10:5 6 AM EDT Impressions 08/28/2024 11:08 AM EDT Multiple small foci of T2 prolongation in the supratentorial white matter. ??These are nonspecific and could be postinflammatory/postinfectious, secondary to migrainous or other vasculopathy, or, in the appropriate clinical setting, secondary to demyelinating disease. ??They are most commonly secondary to chronic microvascular ischemic disease. -------- FINAL REPORT -------- Dictated By: Bharat Blackman Dictated Date: 08/28/2024 10:56 ET Assigned Physician: Bharat Blackman Reviewed and Electronically Signed By: Bharat Blackman Signed Date: 08/28/2024 11:08 ET Workstation ID: [id number] Transcribed By: Self Edit Transcribed Date: 08/28/2024 10:56 ET Narrative 08/28/2024 11:08 AM EDT PROCEDURE: Contrast-enhanced MRI of the brain. HISTORY: Headaches. ??Abnormal involuntary movements. ??Sensations along left side of the face. TECHNIQUE: Multiplanar multisequence MRI of the brain with and without intravenous contrast. IV CONTRAST DOSE: 15 mL Dotarem from a 15 mL vial with 0 mL discarded. COMPARISON: None. FINDINGS: BRAIN: No diffusion abnormality. ??No mass or extra-axial fluid collection. ??No hydrocephalus. ??The major intracranial flow voids are preserved. Age commensurate ventricles and sulci. ??No abnormal enhancement. ??Scattered foci of T2 prolongation in the supratentorial white matter are nonspecific but likely sequela of mild chronic microvascular ischemic disease in a patient of this age. ??Coronal imaging through the hippocampi was performed. ??There are no findings to suggest mesial temporal sclerosis. ORBITS: Normal. ??Normal appearance of the optic nerves. SINUSES/MASTOIDS: Small mucous retention cyst in the anterior left maxillary antrum. ??Trace right greater than left mastoid fluid. CALVARIUM: Mild hyperostosis frontalis interna. OTHER: The visualized skull base soft tissues are normal. ??Mild degenerative changes of the cervical spine. Procedure Note Bharat Blackman MD - 08/28/2024 PROCEDURE: Contrast-enhanced MRI of the brain. HISTORY: Headaches. Abnormal involuntary movements. Sensations alongleft side of the face. TECHNIQUE: Multiplanar multisequence MRI of the brain with and withoutintravenous contrast. IV CONTRAST DOSE: 15 mL Dotarem from a 15 mL vial with 0 mL discarded. COMPARISON: None. FINDINGS: BRAIN: No diffusion abnormality. No mass or extra-axial fluid collection.No hydrocephalus. The major intracranial flow voids are preserved. Agecommensurate ventricles and sulci. No abnormal enhancement. Scatteredfoci of T2 prolongation in the supratentorial white matter are nonspecificbut likely sequela of mild chronic microvascular ischemic disease in apatient of this age. Coronal imaging through the hippocampi wasperformed. There are no findings to suggest mesial temporal sclerosis. ORBITS: Normal. Normal appearance of the optic nerves. SINUSES/MASTOIDS: Small mucous retention cyst in the anterior leftmaxillary antrum. Trace right greater than left mastoid fluid. CALVARIUM: Mild hyperostosis frontalis interna. OTHER: The visualized skull base soft tissues are normal. Milddegenerative changes of the cervical spine. IMPRESSION: Multiple small foci of T2 prolongation in the supratentorial white matter.These are nonspecific and could be postinflammatory/postinfectious,secondary to migrainous or other vasculopathy, or, in the appropriateclinical setting, secondary to demyelinating disease. They are mostcommonly secondary to chronic microvascular ischemic disease. -------- FINAL REPORT -------- Dictated By: Bharat Blackman Dictated Date: 08/28/2024 10:56 ET Assigned Physician: Bharat Blackman Reviewed and Electronically Signed By: Bharat Blackman Signed Date: 08/28/2024 11:08 ET Workstation ID: [id number] Transcribed By: Self Edit Transcribed Date: 08/28/2024 10:56 ET [facility]ovanna [facility] MRI PROCEDURES Final Result * Basic metabolic panel (06/10/2024 10:00 AM EST) Sodium 138 133 - 145 mmol/L LAB CHEMISTRY METHOD 06/10/2024 9:47 PM [facility] Potassium 4.5 3.5 - 5.5 mmol/L LAB CHEMISTRY METHOD 06/10/2024 9:47 PM [facility] Chloride 105 96 - 110 mmol/L LAB CHEMISTRY METHOD 06/10/2024 9:47 PM [facility] CO2 27 21 - 32 mmol/L LAB CHEMISTRY METHOD 06/10/2024 9:47 PM [facility] Anion Gap 6 3 - 11 LAB CHEMISTRY METHOD 06/10/2024 9:47 PM [facility] Glucose 95 70 - 100 mg/dL LAB CHEMISTRY METHOD 06/10/2024 9:47 PM [facility] BUN 13 5 - 25 mg/dL LAB CHEMISTRY METHOD 06/10/2024 9:47 PM [facility] Creatinine 0.91 0.50 - 1.10 mg/dL LAB CHEMISTRY METHOD 06/10/2024 9:47 PM [facility] eGFR 74 >=60 mL/min/1. 73m2 LAB CHEMISTRY METHOD 06/10/2024 9:47 PM [facility] Comment:Calculation based on the??Chronic Kidney Disease Epidemiology Collaboration (CKD-EPI) equation refit??without adjustment for race. BUN/Creatinine Ratio 14.3 LAB CHEMISTRY METHOD 06/10/2024 9:47 PM [facility] Calcium 9.3 8.5 - 10.5 mg/dL LAB CHEMISTRY METHOD 06/10/2024 9:47 PM [facility] Blood Venous blood specimen / Unknown Venipuncture / Unknown 06/10/2024 10:00 AM EST 06/10/2024 10:00 AM EST Lauro Muñoz MD LAB BLOOD ORDERABLES Final Resul t [facility] [address] [place] [address], * Depression Screening (03/04/2024) Pathologist [facility] Depression Screening Abstracted Historical Provider HEALTH MAINTENANCE [...] Final Result * Pap Smear (11/07/2022) Pathologist [facility] Pap smear No Interpretation , Abstracted Historical Provider HEALTH MAINTENANCE Final Result * Colonoscopy (04/07/2021) [facility] Colonoscopy No Interpretation , Abstracted Anatomical Region Laterality Modality Other Historical Provider HEALTH MAINTENANCE Final Result * Hepatitis C Screening (03/06/2019) [facility] Hepatitis C Screening Abstracted Historical Provider HEALTH MAINTENANCE Final Result from Last 3 Months or Most Recently Relevant to Health Maintenance Insurance [facility] [employer] MEDICARE Member Subscriber Plan / Payer (Ef fective 2018-Present) Name:Destinee Mcdermott Relation to Subscriber:Self Name:Destinee Mcdermott Payer ID:[id number] Group ID:[id number] Type:Not on file Address: [place] [address] [place] [address] Care Teams Copier Operator Relationship Specialty Start Date End Date Lauro Muñoz MD [address] [place] [address] PCP - General 08/29/22
== END 2024-09-09 08:56 | disposition home or self-care (01) ==
LOC: HO.NEURO 08:55
PROVIDERS: PCP Student in an Organized Health Care Education/Training Program; Visit Provider Nurse Practitioner Family
DX: R25.9 Unspecified abnormal involuntary movements (principal); G40.909 Epilepsy, unspecified, not intractable, without status epilepticus
CPT/HCPCS: 95819

== ENCOUNTER 2024-11-05 10:18 | Outpatient (AMB) | payer OTHER, SELFPAY ==
--- NOTE | 2024-11-05 10:48 | MHC.OFFVIS ---
Vital Signs 11/05/24 10:57 Height 5 ft 5 in Weight 181 lb BMI 30.1 BP 134/80 Blood Pressure Location Lt brachial Position Sitting Pulse 76 Pulse Source Pulse Oximeter Pulse Oximetry (%) 99 Oxygen Delivery Method Room Air Intake Visit Reasons: SLE Intake Note: Patient presents for SLE follow up. Allergies codeine Allergy (Unknown, Verified 11/05/24 10:53) Unknown hydroxyzine [From Vistaril] Allergy (Unknown, Verified 11/05/24 10:53) Unknown piperacillin [From Zosyn] Allergy (Unknown, Verified 11/05/24 10:53) Unknown pregabalin [From Lyrica] Allergy (Unknown, Verified 11/05/24 10:53) Unknown shellfish derived Allergy (Unknown, Verified 11/05/24 10:53) UNKNOWN tazobactam [From Zosyn] Allergy (Unknown, Verified 11/05/24 10:53) Unknown lisinopril Adverse Reaction (Intermediate, Verified 11/05/24 10:53) Cough BEES Allergy (Unknown, Uncoded 01/18/24 08:27) Unknown BETADYNE Allergy (Unknown, Uncoded 01/18/24 08:27) UNKNOWN GADAVIST Allergy (Unknown, Uncoded 01/18/24 08:27) Unknown HYDROXYZINE Allergy (Unknown, Uncoded 01/18/24 08:27) UNKNOWN iv CONTRAST Allergy (Unknown, Uncoded 01/18/24 08:27) Unknown cortisone Adverse Reaction (Severe, Uncoded 01/18/24 08:27) hair loss Medication List - Last Reconciled 11/05/24 by Harper Syed MD acetaminophen ER (Tylenol 8 Hour) 650 mg PO Q12H PRN albuterol sulfate 90 mcg/actuation 2 puffs inhalation Q6H PRN amlodipine 5 mg PO DAILY aspirin (Adult Low Dose Aspirin) 81 mg PO DAILY atorvastatin 20 mg PO DAILY bepotastine besilate 1.5% 1 drp ophthalmic (eye) BID calcium carbonate-vitamin D3 500 mg-10 mcg (400 unit) 1 tab PO BID diclofenac sodium 3% 1 appl topical BID epinephrine 0.3 mg IM Q4H PRN fexofenadine (Allergy Relief (fexofenadine)) 0 mg PO fluticasone propionate 50 mcg/actuation 2 sprays intranasal DAILY folic acid 3 mg (3 x 1 mg) PO DAILY 90 days gabapentin 100 mg PO BEDTIME hydrochlorothiazide 12.5 mg PO DAILY levetiracetam (Keppra) 1 tab bid x's 2 weeks, then 2 tabs bid orally 2 times a day; 30 days levothyroxine 50 mcg PO DAILY lisinopril 10 mg PO DAILY loratadine 10 mg PO DAILY methotrexate sodium 15 mg (6 x 2.5 mg) PO QWEEK 90 days nitroglycerin (Nitrostat) 0.4 mg sublingual Q5M PRN ondansetron HCl 4 mg PO Q8H PRN oxcarbazepine (Trileptal) 300 mg PO DAILY pantoprazole 40 mg PO BID polyethylene glycol 3350 17 grams PO DAILY pyridoxine (vitamin B6) 50 mg PO BID 30 days sertraline 50 mg PO DAILY HPI Comments Details: Patient is a 59-year-old female with 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 At that time she was following up for her SLE. She had some mild activity with tenderness to palpation of the MCPs and complaining of intermittent rashes. Methotrexate was started. Today, Had right shoulder rotator cuff surgery October 06. Which was an extensive surgery requiring surgical screw replacement Currently in a sling. Needs to do PT for 6 months As a result she did not start the methotrexate Since the last visit She has not had any further rashes But notes some swelling to her knuckles Rheumatologic History: DDx 2005 in [place] Methotrexate and steroids for years - stopped in 2017 [facility]) Prior history of pos RACHEL, arthralgias, rash, seizures On hydroxychloroquine initially 2009 last eye exam 03/15, 11/14,09/2021, 05/2022 No lupus activity in 2022 [place] Picker: Mass cell disorder, going to [place] November 19 for consult. l - increased sensitivity to smells, worsened allergies, ENT - Vertigo therapy starting on 08/02. EYEs: Continue the drug Holiday from [facility] per MD. Current Rheumatology Medication(s): Methotrexate 15mg weekly (not taking) Folic acid 1mg daily (not taking) PENDING SALE TO [facility] Medical History (Updated 06/11/25 @ 10:57 by BILLY Henning) Traumatic rupture of rotator cuff of right shoulder Mast cell disorder Surgical History H/O breast biopsy S/P cardiac cath Hx of tubal ligation Hx of right knee surgery H/O shoulder surgery Family History Mother Hypertension Heart disease Dementia High cholesterol Father Hypertension High cholesterol Social History Household Members: Spouse Housing: House Are you a primary rn managed care to a significant other at home: No Do you presently have visiting nurse or other home services: No 75 years or older and lives alone: No Alcohol intake: never Patient Tobacco Use Status: Never used Tobacco e-Cigarette/Vaping Use: Never Used service: No Current occupational status: disabled Review of Systems Const Details: Review of Systems Constitutional: Denies fever, chills, weight loss ENT: Denies vision changes, eye pain or eye redness, dental caries, dry mouth GI: Denies nausea, vomiting, diarrhea, abdominal pain, change in BM Pulm: Denies SOB, WATERS, hemoptysis, wheezing Cards: Denies chest pain, palpitations Skin: Denies Raynaud's, rash, nail changes, photosensitivity, INSOLE RASPER: Denies headaches, weakness, paresthesias, recurrent falls MSK: as per HPI All other systems reviewed and are unremarkable except noted above Physical Exam Vital Signs: Last Vital Signs Pulse 76 11/05/24 10:57 BP 134/80 11/05/24 10:57 Pulse Ox 99 11/05/24 10:57 Oxygen Delivery Method Room Air 11/05/24 10:57 BMI result Body Mass Index 30.1 Vital signs reviewed Physical Examination CONSTITUITIONAL Patient alert and cooperative. Well appearing and in no apparent painful distress HEENT Conjunctiva and sclera clear. ?No lymphadenopathy. ? CHEST/RESPIRATORY SYSTEM Normal respiratory effort and able to speak in complete sentences. ?Clear to auscultation bilaterally. ?No crackles, rales, rhonchi, wheezes heard. CARDIAC SYSTEM Regular rate and rhythm. ?S1 and S2 heard no murmurs. ?Radial pulses intact bilaterally MSK Hands: ?Able to make a fist. No synovitis noted to the MCPs, PIPs or DIPs. Mild soreness to her left MCPs and tenderness to palpation of the left 1st CMC Wrists: ?Full range of motion at the wrists without pain. ?No tenderness to palpation or synovitis noted to the wrists. Elbows: Full range of motion without pain. No tenderness, weakness, swelling, increased warmth or erythema. Shoulders: Right shoulder in sling. Left shoulder with full range of motion Knees: ?Full range of motion. ?No tenderness, swelling, increased warmth or erythema.? No effusion. Crepitations felt bilaterally Ankles: Full range of motion. ?No tenderness, swelling, increased warmth or erythema.? Feet: ?Negative squeeze test. ?No tenderness to palpation or swelling of the MTPs. Tender points:?No tenderness to palpation of the bilateral trapezius, supraspinatus, greater trochanters, anterior costochondral junctions, bilateral gluteal areas, bilateral suboccipital muscle insertions SKIN Skin intact without rashes. Results Reviewed Results Reviewed: Laboratory Tests 07/10/24 10:22 WBC 5.1 RBC 4.62 Hgb 12.7 Hct 39.6 Plt Count 230 ESR 7 Sodium 142 Potassium 4.2 Chloride 108 Carbon Dioxide 25 BUN 10 Creatinine 0.75 AST 33 H ALT 31 Alkaline Phosphatase 76 C-Reactive Protein 0.22 Laboratory Tests 07/10/24 10:05 Urine Color Yellow Urine Appearance Clear Urine pH 5.5 Urine Protein Negative Urine Blood Negative U Random Total Protein < 7 Laboratory Tests 07/30/23 07/10/24 11:24 10:22 RACHEL Screen POSITIVE A RACHEL Titer 1:80 H Double Strand DNA Ab 8 H 7 H Complement C3 131 Complement C4 36 Assessment & Plan Assessment & Plan (1) SLE (systemic lupus erythematosus related syndrome): Comment: [facility]) Prior history of pos RACHEL, arthralgias, rash, seizures On hydroxychloroquine initially 2009 last eye exam 03/15, 11/14,09/2021, 05/2022 No lupus activity in 2022 Code(s): M32.9 - Systemic lupus erythematosus, unspecified Category: Medical Plan: #SLE Patient is a 59-year-old female with SLE here today for follow up. Currently undergoing rehab for an extensive right shoulder surgery. Given the extensive healing that is going on I think it is fair for us to hold off on starting methotrexate for now. We will re-evaluate in 6 months Plan - hold methotrexate and folic acid - RTC 6 months - Labs before visit: CBC, CMP, ESR, CRP, C3, C4, dsDNA, UA, UPC Plan I spent 20 minutes reviewing the record and labs, taking a history, examining the patient, discussing the treatment plan and documenting in the medical record Orders: Orders Anti DNA DS Antibody 6 Months M32.9 - Systemic lupus erythematosus, unspecified UA w Microscopic 6 Months M32.9 - Systemic lupus erythematosus, unspecified Complement C3 6 Months M32.9 - Systemic lupus erythematosus, unspecified Complement C4 6 Months M32.9 - Systemic lupus erythematosus, unspecified Complete Blood Count Auto Diff 6 Months M32.9 - Systemic lupus erythematosus, unspecified Comprehensive Met. Panel 6 Months M32.9 - Systemic lupus erythematosus, unspecified C Reactive Protein 6 Months M32.9 - Systemic lupus erythematosus, unspecified Erythrocyte Sedimentation Rate 6 Months M32.9 - Systemic lupus erythematosus, unspecified Protein Creatinine Ratio, Ur 6 Months M32.9 - Systemic lupus erythematosus, unspecified Medications: On Hold methotrexate sodium Hold Comment: Doctor's Order 15 mg (6 x 2.5 mg) PO QWEEK 90 days 78 tabs 1RF M32.9 - Systemic lupus erythematosus, unspecified folic acid Hold Comment: Doctor's Order 3 mg (3 x 1 mg) PO DAILY 90 days 270 tabs 1RF M32.9 - Systemic lupus erythematosus, unspecified Coding Level of Care Code Est Pt Level 3 (55651) Diagnoses SLE (systemic lupus erythematosus related syndrome) M32.9
[2024-11-05 10:57] VITALS: BP 134/80; PULSE 76; O2SAT 99; BMI 30.1
--- OUTSIDE RECORDS SUMMARY | 2024-11-05 11:39 | XMS_ITS | Clinical Summary ---
Author Organization [facility] Address [address] [place] [address] Care Team Providers Care Wind Plant Manager Name Role Phone Nadege Anderson Primary Care Provider [phone] Allergies Active Allergy Reactions Criticality Noted Date [...] [facility]) Prior history of pos RACHEL, arthralgias, [...] 5 season) 2024 08/12/2020, 07/15/2020 Influenza Vaccine (Season Ended) 2025 02/24/2020 DTap / Tdap / Td (2 - Td or Tdap) 11/07/2028 11/07/2018 RSV Ped < 20 months Aged Out No longe r eligible based on patient's age to complete this topic Care Teams Wind Plant Manager Relationship Specialty Start Date End Date Nadege Anderson Nallely [address] [place] [id number] PCP - General Internal Medicine 09/25/18
== END 2024-11-05 11:33 | disposition home or self-care (01) ==
LOC: HO.RHE 10:19
PROVIDERS: PCP Student in an Organized Health Care Education/Training Program; Visit Provider Student in an Organized Health Care Education/Training Program
DX: M32.9 Systemic lupus erythematosus, unspecified (principal)
CPT/HCPCS: 99213

== ENCOUNTER → 2024-11-05 10:18 | Outpatient (BNVA) | payer OTHER, SELFPAY | PROVIDERS: PCP Student in an Organized Health Care Education/Training Program; Visit Provider Student in an Organized Health Care Education/Training Program | DX: M81.0 Age-related osteoporosis without current pathological fracture (principal); M32.9 Systemic lupus erythematosus, unspecified | CPT/HCPCS: 99212 ==